=== PATIENT | female | born 1960 | race Caucasian/White ===

== ENCOUNTER 2021-10-22 15:18 | Outpatient (REF) | payer MEDICAID, SELFPAY ==
[2021-10-22 16:53] LABS: Abs Immature Grans 0.02 10^3/uL (0.0-0.06); Absolute Basophil Count 0.06 10^3/uL (0.0-0.2); Absolute Lymphocyte Count 1.97 10^3/uL (1.2-3.4); Absolute Monocyte Count 0.44 10^3/uL (0.1-0.8); Absolute Neutrophil Count 5.37 10^3/uL (1.2-6.7); Basophils % 0.8; Eosinophils % 1.3; HCT 42.4 % (36.0-46.0); HGB 13.9 g/dL (11.2-15.7); Immature Grans % 0.3; Lymphocytes % 24.7; MCH 29.1 pg (27.0-33.0); MCHC 32.8 % (32.0-36.0); MCV 88.9 fL (80-95); MPV 11.7 fL (8.0-11.0); Monocytes % 5.5; Neutrophils % 67.4; Nucleated RBC 0 %; Platelet Count 254 10^3/uL (130-400); RBC 4.77 10^6/uL (3.93-5.22); RDW 12.4 % (11.7-14.6); WBC 7.96 10^3/uL (4.4-10.8)
[2021-10-22 17:25] LABS: D-Dimer 659 ng/mlFEU (<500)
[2021-10-22 19:18] LABS: ALT 15 U/L (14-59); AST 13 U/L (15-37); Alkaline Phosphatase 76 U/L (46-116); Anion Gap 8.3 mmol/L (3-11); BUN 12 mg/dL (7-18); Bilirubin, Total 0.4 mg/dL (0.2-1.0); CO2 25.7 mmol/L (21.0-32.0); CREATININE 0.8 mg/dL (0.55-1.02); Calcium 8.7 mg/dL (8.5-10.1); Chloride 106 mmol/L (98-107); Glucose 205 mg/dL (74-106); Lipase 136 U/L (73-393); Potassium 3.7 mmol/L (3.5-5.1); Sodium 140 mmol/L (136-145)
== END 2021-10-22 15:19 | disposition home or self-care (01) ==
LOC: LBN 15:18
PROVIDERS: PCP Family Medicine; Visit Provider Physician Assistant Medical
DX: R10.9 Unspecified abdominal pain (principal); R06.00 Dyspnea, unspecified
CPT/HCPCS: 80053; 83690; 85025; 85379

== ENCOUNTER 2022-01-30 17:07 | Outpatient (REF) | payer MEDICAID, SELFPAY ==
[2022-01-30 21:26] LABS: Bilirubin Negative (Negative); Blood Trace-intact (Negative); Clarity Clear (Clear); Glucose Negative (Negative); Ketones Negative (Negative); Leukocyte Esterase Negative (Negative); Nitrite Negative (Negative); Specific Gravity >= 1.030 (1.005-1.025); Urobilinogen 0.2 EU/dL (Up TO 0.2)
== END 2022-01-30 17:08 | disposition home or self-care (01) ==
LOC: LBN 17:07
PROVIDERS: PCP Family Medicine; Visit Provider Family Medicine
DX: R82.998 Other abnormal findings in urine (principal)
CPT/HCPCS: 81003

== ENCOUNTER → 2022-05-22 00:38 | Outpatient (CLI) | payer MEDICAID, SELFPAY ==
--- NOTE | 2022-05-22 07:30 | DI.CT_ITS ---
Exam(s) CT CHEST WO EXAM: CT CHEST WO CLINICAL HISTORY: f/u nodules, R91.8 TECHNIQUE: Imaging Protocol: Axial computed tomography images with coronal and sagittal reformatted images were created and reviewed CONTRAST MATERIAL: Noncontrast COMPARISON: CR XR CHEST SINGLE VIEW from 06/09/[address] ANGIO CHEST from 10/23/2021 FINDINGS: Tracheobronchial tree: No bronchiectasis or mucous plugging. Mediastinum and Ro: No dominant adenopathy or fluid collection. Pulmonary parenchyma: Biapical scarring, right greater than left. Centrilobular and paraseptal emphy sematous changes in the upper lobes. Interval clearing previously noted right lower lobe infiltrate. No consolidation. Stable 4 millimeter nodule superior segment right lower lobe. Previously noted 6 millimeter nodule no longer present. Pleura: No effusion or pneumothorax. Heart: The heart is not dilated. coronary artery calcifications are seen. Aorta: Thoracic aorta non-dilated. Atherosclerotic changes. Upper abdomen: Multiple stones upper pole left kidney. Lymph nodes: Within normal limits. Bones: Mild degenerative changes. Stable mild T11 compression fracture. Soft tissues: Unremarkable. IMPRESSION: Interval clearing infiltrate superior segment right lower lobe. Stable appearance of 4 millimeter ri ght lower lobe nodule. Underlying emphysematous changes. If the patient is at high risk for lung cancer, recommend low-dose screening CT in 1 year. RADIATION DOSE DELIVERED: 377.96mGy.cm Total DLP DATA REPOSITORY: All CT scans at this facility are submitted to the National Radiology Data Registry (NRDR) Dose Index Registry (DIR) with the [employer] (ACR). RADIATION OPTIMIZATION: All CT scans at this facility use at least one of these dose optimization te chniques: automated exposure control; mA and/or kV adjustment per patient size (includes targeted exa ms where dose is matched to clinical indication); or iterative reconstruction.
== END ==
PROVIDERS: PCP Family Medicine; Visit Provider Student in an Organized Health Care Education/Training Program
DX: R91.8 Other nonspecific abnormal finding of lung field (principal); J43.2 Centrilobular emphysema
CPT/HCPCS: 71250

== ENCOUNTER 2022-12-25 13:11 | Outpatient (REF) | payer MEDICAID, SELFPAY ==
[2022-12-25 11:10] LABS: Abs Immature Grans 0.02 10^3/uL (0.0-0.06); Absolute Basophil Count 0.05 10^3/uL (0.0-0.2); Absolute Eosinophil Count 0.11 10^3/uL (0.0-0.7); Absolute Lymphocyte Count 1.95 10^3/uL (1.2-3.4); Absolute Monocyte Count 0.52 10^3/uL (0.1-0.8); Absolute Neutrophil Count 5.17 10^3/uL (1.2-6.7); Basophils % 0.6; Eosinophils % 1.4; HGB 14.8 g/dL (11.2-15.7); Immature Grans % 0.3; Lymphocytes % 24.9; MCH 30.3 pg (27.0-33.0); MCHC 34.4 % (32.0-36.0); MCV 88 fL (80-95); MPV 11.5 fL (8.0-11.0); Monocytes % 6.6; Neutrophils % 66.2; Platelet Count 198 10^3/uL (130-400); RBC 4.88 10^6/uL (3.93-5.22); RDW 12.2 % (11.7-14.6); RDW-SD 39.8 fL; WBC 7.82 10^3/uL (4.4-10.8)
[2022-12-25 12:26] LABS: ALT 15 U/L (14-59); AST 15 U/L (15-37); Albumin 4.4 g/dL (3.4-5.0); Alkaline Phosphatase 72 U/L (46-116); Anion Gap 6.8 mmol/L (3-11); BUN 13 mg/dL (7-18); Bilirubin, Total 0.6 mg/dL (0.2-1.0); CO2 29.2 mmol/L (21.0-32.0); CREATININE 0.9 mg/dL (0.55-1.02); Calcium 9.3 mg/dL (8.5-10.1); Chloride 103 mmol/L (98-107); Estimated GFR 71.83 (mL/min/1.73m2); Glucose 91 mg/dL (74-106); Potassium 3.9 mmol/L (3.5-5.1); Sodium 139 mmol/L (136-145); Total Protein 7.5 g/dL (6.4-8.2)
== END 2022-12-25 13:12 | disposition home or self-care (01) ==
LOC: LBN 13:11
PROVIDERS: PCP Family Medicine; Visit Provider Family Medicine
DX: R10.9 Unspecified abdominal pain (principal)
CPT/HCPCS: 80053; 85025

== ENCOUNTER 2022-12-25 13:16 | Outpatient (CLI) | payer MEDICAID, SELFPAY ==
--- NOTE | 2022-12-25 | DI.CT_ITS ---
Exam(s) CT ABDOMEN PELVIS W EXAM: CT ABDOMEN PELVIS W CLINICAL HISTORY: ABD PAIN R10.9. TECHNIQUE: Imaging Protocol: Axial computed tomography images with coronal and sagittal reformatted images were created and reviewed CONTRAST MATERIAL: Intravenous: Omnipaque 350 Contrast volume:100 ml Oral: yes / COMPARISON: CT CT ANGIO CHEST from 10/23/2021 FINDINGS: ABDOMEN: Lung Bases: Sub stable tiny nodule right lung base. Liver: Normal density. No measurable mass. Gallbladder and biliary tract: No radiodense calculus or dilation. Pancreas: Normal density, no abnormal calcifications or inflammatory process. Spleen: Normal. Kidneys: Normal size, contour and axis. The multiple bilateral renal calculi, the largest at the lowe r pole of the left kidney. No suspicious masses seen. Adrenal glands: No masses seen. Abdominal Aorta: Abdominal portion non-dilated. Atherosclerotic changes with moderate narrowing Soft tissues: Unremarkable. PELVIS: Bladder: No gross wall thickening. No calculi.No focal mass. Bowel: Large quantity of stool from the cecum through lower descending colon. No obstruction. No b owel wall thickening. Appendix normal. Peritoneal cavity: No ascites, collection or mesenteric inflammatory response. Bones: Hardware right proximal femur Reproductive organs: Status post hysterectomy peer Lymph nodes: Unremarkable. Impression: No acute abnormality. Bilateral nonobstructing renal calculi. Large quantity of stool. RADIATION DOSE DELIVERED: 746.21mGy.cm Total DLP DATA REPOSITORY: All CT scans at this facility are submitted to the National Radiology Data Registry (NRDR) Dose Index Registry (DIR) with the [employer] (ACR). RADIATION OPTIMIZATION: All CT scans at this facility use at least one of these dose optimization te chniques: automated exposure control; mA and/or kV adjustment per patient size (includes targeted exa ms where dose is matched to clinical indication); or iterative reconstruction.
[2022-12-25] MEDS: Barium Sulfate 2% W/V-Berry Smoothie 450 ML BTL PO (12:30)
[2022-12-25] MEDS: Omnipaque 350 MG/ML 100 ML BTL IJ (14:26)
[2022-12-25] MEDS: Normal Saline - Diluent 50 ML VIAL IJ (14:26)
[2022-12-25] MEDS: Normal Saline Flush 10 ML SYR IVP (14:27)
== END 2022-12-25 13:36 ==
LOC: DI 13:17
PROVIDERS: PCP Family Medicine; Visit Provider Family Medicine
DX: R10.9 Unspecified abdominal pain (principal); N20.0 Calculus of kidney
CPT/HCPCS: 74177; J3490

== ENCOUNTER → 2023-05-24 02:19 | Outpatient (CLI) | payer MEDICAID, SELFPAY ==
--- NOTE | 2023-05-24 09:15 | DI.CTLCSR_ITS ---
Exam(s) CT CHEST LUNG CANCER SCREEN EXAM: CT CHEST LUNG CANCER SCREEN CLINICAL HISTORY: Screening for lung cancer, CURRENT SMOKER, F17.210 TECHNIQUE: Imaging Protocol: Axial computed tomography images with coronal and sagittal reformatted images were created and reviewed. Low dose screening protocol. COMPARISON: CT CT CHEST WO from 05/22/2022 FINDINGS: Tracheobronchial tree: No bronchiectasis or mucus plugging.. Mediastinum and Ro: No dominant adenopathy or fluid collection. Pulmonary parenchyma: No consolidation or dominant measurable mass. Centrilobular and paraseptal emph ysematous changes. Lung Nodules: Stable 4 millimeter nodules right lower lobe. No new nodules. Pleura: No effusion. No pneumothorax. Heart: The heart is not dilated. Moderate coronary artery calcifications are seen. Aorta: Thoracic aorta non-dilated. Atherosclerotic changes. Upper abdomen: Nonobstructing stones upper pole left kidney. Bones: Stable mild T11 compression fracture. Mild degenerative changes. Soft Tissues: Unremarkable. IMPRESSION: Stable small pulmonary nodules right lower lobe. Lung RADS Cat 2 - Benign Appearance / Behavior: Nodules with a very low likelihood of becoming a clin ically active cancer due to size or lack of growth Lung-RADS 1.0 CATEGORIES: Category 0 - Prior chest CT exam(s) being located for comparison. Category 1 - Annual screening in 12 months. No nodules or definitely benign nodules. Category 2 - Annual screening in 12 months. Benign appearance. Nodules with low likelihood of becomin g active cancer. Category 3 - 6-month follow-up. Probably benign. Short-term follow-up suggested. Nodules with low lik elihood of becoming active cancer. Category 4A - 3-month follow-up and CT/PET if >8 mm in size. Suspicious finding. Findings which requi re additional testing. Category 4B - Findings which require additional testing and tissue sampling. Category 4X - Category 3 or 4 nodules with additional features or imaging findings that increases the suspicion of malignancy. Modifier S- Potentially clinically significant findings (non lung cancer) RADIATION DOSE DELIVERED: Total DLP DATA REPOSITORY: All CT scans at this facility are submitted to the National Radiology Data Registry (NRDR) Dose Index Registry (DIR) with the [employer] (ACR). RADIATION OPTIMIZATION: All CT scans at this facility use at least one of these dose optimization te chniques: automated exposure control; mA and/or kV adjustment per patient size (includes targeted exa ms where dose is matched to clinical indication); or iterative reconstruction.
== END ==
PROVIDERS: PCP Family Medicine; Visit Provider Physician Assistant Surgical
DX: F17.210 Nicotine dependence, cigarettes, uncomplicated (principal); R91.8 Other nonspecific abnormal finding of lung field; Z12.2 Encounter for screening for malignant neoplasm of respiratory organs
CPT/HCPCS: 71271

== ENCOUNTER 2023-08-16 16:23 | Outpatient (REF) | payer MEDICAID, SELFPAY ==
[2023-08-16 14:26] LABS: Abs Immature Grans 0.01 10^3/uL (0.0-0.06); Absolute Basophil Count 0.06 10^3/uL (0.0-0.2); Absolute Eosinophil Count 0.26 10^3/uL (0.0-0.7); Absolute Lymphocyte Count 1.89 10^3/uL (1.2-3.4); Absolute Monocyte Count 0.48 10^3/uL (0.1-0.8); Absolute Neutrophil Count 4.49 10^3/uL (1.2-6.7); Basophils % 0.8; Eosinophils % 3.6; HCT 42.9 % (36.0-46.0); HGB 14.5 g/dL (11.2-15.7); Immature Grans % 0.1; Lymphocytes % 26.3; MCH 30.1 pg (27.0-33.0); MCHC 33.8 % (32.0-36.0); MCV 89 fL (80-95); MPV 11.2 fL (8.0-11.0); Monocytes % 6.7; Neutrophils % 62.5; Platelet Count 213 10^3/uL (130-400); RBC 4.81 10^6/uL (3.93-5.22); RDW 12.1 % (11.7-14.6); WBC 7.19 10^3/uL (4.4-10.8)
[2023-08-16 14:48] LABS: ALT 18 U/L (14-59); AST 16 U/L (15-37); Albumin 4.2 g/dL (3.4-5.0); Alkaline Phosphatase 76 U/L (46-116); Anion Gap 5.4 mmol/L (3-11); BUN 14 mg/dL (7-18); Bilirubin, Total 0.4 mg/dL (0.2-1.0); CO2 29.6 mmol/L (21.0-32.0); CREATININE 0.8 mg/dL (0.55-1.02); Calcium 9.4 mg/dL (8.5-10.1); Chloride 102 mmol/L (98-107); Estimated GFR 82.74 (mL/min/1.73m2); Glucose 96 mg/dL (74-106); Potassium 4.2 mmol/L (3.5-5.1); Sodium 137 mmol/L (136-145); Total Protein 7.5 g/dL (6.4-8.2)
[2023-08-16 15:27] LABS: Bilirubin Negative (Negative); Blood Small (Negative); Clarity Clear (Clear); Glucose Negative (Negative); Ketones Negative (Negative); Leukocyte Esterase Negative (Negative); Nitrite Negative (Negative); Urobilinogen 0.2 mg/dL (Up to 0.2)
[2023-08-16 15:35] LABS: Bacteria Rare HPF (Negative); C & S Indicated? C&S Done As Ordered; Crystals Negative HPF (Negative); Epithelial Cells Few HPF (Negative); Mucus Negative (Negative); WBC 0-2 HPF (0-5)
--- OUTSIDE RECORDS SUMMARY | 2023-08-16 16:25 | XMS_ITS | Continuity of Care Document ---
Author Name Unknown Organization [facility] Address [address] [place] [address] Care Team Providers Care Systems Administrator Name Role Phone Ken Murdock DO Primary Care Physician [phone] Encounter [facility] FIN NBR [id number] Date(s): 03/22/23 - 03/22/23 [facility] [address], [place] [address] Discharge Disposition: Home Allergies, Adverse Reactions, Alerts Substance Reaction Severity Status ciprofloxacin ? Nausea Unknown Active azithromycin 1 Rash Unknown Active penicillin V potassium Unknown Unknown Activ e varenicline Unknown Unknown Active Vicodin Itchy Unknown Severe Active Toradol itchy, rash on hands and feet Unknown Active Tylox very itchy Unknown Active Chantix Unknown Active traMADol Unknown Unknown Active diazePAM very shakey Unknown Active 1May have had sun rash; tolerated zpak in past without problems previously Assessment and Plan Future Appointments Future Scheduled Tests Laboratory* Free K+L Lt Chains,Qn,S LC 12/22/22 Radiology* BD Bone Density DEXA Axial Skeleton 04/22/23 * MG Mammo Screening Bilateral 05/15/22 * XR Bone Survey (Metastatic) 12/12/22 * XR Bone Survey (Metastatic) 12/22/22 Immunizations Given and Recorded Vaccine Date Status Refusal Reason SARS-CoV-2 (COVID-19) mRNA-1273 vaccine 09/09/20 R ecorded SARS-CoV-2 (COVID-19) mRNA-1273 vaccine 08/12/20 R ecorded Medications ALPRAZolam 0.5 mg oral tablet See Instructions, May take 1 tab up to 2 times daily as needed for anxiety, # 30 tab, 2 Refill(s), Pharmacy: [id number] Start Date: 09/21/22 Status: Ordered methocarbamol 750 mg oral tablet 750 mg = 1 tab, Oral, every 4 hr, PRN as needed for pain, PRN, # 60 tab, 0 Refill(s) Start Date: 11/16/22 Status: Ordered Vitamin B12 1,000 mcg =, Oral, Daily, 0 Refill(s) Start Date: 03/22/23 Status: Ordered Vitamin D3 2000 intl units oral tablet 50 mcg = 1 tab, Oral, Daily, # 90 tab, 3 Refill(s), Pharmacy: [facility] Start Date: 09/02/22 Stop Date: 08/28/23 Status: Ordered Wellbutrin XL 150 mg/24 hours oral tablet, extended release 150 mg = 1 tab, Oral, every 24 hr, # 30 tab, 11 Refill(s), Pharmacy: [id number], 175.26, cm, 02/22/23 17:26:00 EDT, Height/Length Dosing, 63.5, kg, 02/22/23 17:26:00 EDT, Weight Dosing Start Date: 03/22/23 Status: Ordered Problem List Condition Confirmation Course Effective Dates Status Health Status Informant Bloating Confirmed Active Gait disturbance Confirmed Active Abnormal leg movement Confirmed Active Acute right-sided low back pain with sciatica Confirmed Active Acute swimmer's ear of both sides Confirmed Active Adenomatous polyp of colon Confirmed Active Anxiety disorder Confirmed Active Biceps tendinitis Confirmed Active Breast mass, right Confirmed Active Breast lump Confirmed Active Centrilobular emphysema Confirmed Active Centriacinar emphysema Confirmed Active Chest pain Confirmed Active 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 Confirmed Active Closed fracture of neck of femur Confirmed Active Compression fracture of body of thoracic vertebra Confirmed Active Conductive hearing loss, external ear Confirmed Active Degenerative joint disease of shoulder region Confirmed Active Delay when starting to pass urine Confirmed Active Disorder of bone density and structure, unspecified Confirmed Active Diverticulosis of colon Confirmed Active Erosive gastropathy Confirmed Active Fatigue Confirmed Active Fibrocystic changes of both breasts Confirmed Active Full thickness rotator cuff tear Confirmed Active Gastroesophageal reflux disease Confirmed Active Goiter Confirmed Active Graves disease 1 Confirmed Active H/O: ear disorder Confirmed Active Pyrosis Confirmed Active History of adenomatous polyp of colon Confirmed Active History of kidney stone Confirmed Active Hyperlipidemia Confirmed Active IBS (irritable bowel syndrome) Confirmed Active Kidney stone Confirmed Active Nephrolithiasis Confirmed Active Left rotator cuff syndrome Confirmed Active Lower abdominal pain Confirmed Active Mass of female genital structure Confirmed Active Cystocele, midline Confirmed Active Midline cystocele Confirmed Active Migraine without status migrainosus, not intractable Confirmed Active Monoclonal gammopathy Confirmed Active Pulmonary nodules Confirmed Active Cervical pain Confirmed Active Neck pain Confirmed Active Neuralgia Confirmed Active Numbness of toes Confirmed Active Osteochondropathy Confirmed Active Osteoporosis Confirmed Active Otalgia of left ear Confirmed Active Otomycosis Confirmed Active Pathological fracture of vertebra Confirmed Active Plantar wart of left foot Confirmed Active Primary osteoporosis Confirmed Active Emphysema lung Confirmed Active Referred otalgia of left ear Confirmed Active Restless legs syndrome Confirmed Active Other seborrheic keratosis Confirmed Active Seborrheic keratosis Confirmed Active Submandibular sialoadenitis Confirmed Active Sialoadenitis of the submandibular gland Confirmed Active Sore throat Confirmed Active Superficial mycosis, unspecified Confirmed Active Thyroid disease Confirmed Active Tobacco user Confirmed Active von Willebrand's disease Confirmed Active 1Graves disease-radioactive iodine ablation Procedures Procedure Date Related Diagnosis Body Site Status Esophagogastroduodenoscopy a nd Colonoscopy with Biopsy 1 02/25/23 Comple gene Mammogram 2 04/12/19 Completed Injection left shoulder, cortisone 01/04/17 Completed Right Ureteroscopy and laser lithotripsy 11/07/15 Completed Colonoscopic polypectomy 3 Completed Fat graft stomach to neck 4 Completed Hysterectomy.... subtotal ab dominal , due to risk of cancer 5 Complete d Procedure 6 Completed Tonsillectomy and adenoidectomy 7 Completed 1auto-populated from documented surgical case 2CAT 2 [id number]... 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 1/2 ppd depending on stress never over 1 pack per day. Sex Female Patient Care team information Care Team Personnel Name: Ken Murdock DO Position: Physician Member Role: Primary Care Physician Address: Address: [address] [place] [phone] [place] Care Team Related Persons Name: ZANE BANKS Address: Home
--- OUTSIDE RECORDS SUMMARY | 2023-08-16 16:25 | XMS_ITS | Continuity of Care Document ---
Author Name Unknown Organization [facility] Address [address] [place] [address] Care Team Providers Care Adventure Education Teacher Name Role Phone Ken Murdock DO Primary Care Physician Encounter [facility] FIN NBR [id number] Date(s): 05/31/23 - 05/31/23 [facility] [address] [place], [place] [address] Encounter Diagnosis Foreign body sensation, throat(Final) - Discharge Disposition: Home or Self Care Attending Physician: Ken Murdock DO Admitting Physician: Ken Murdock DO Referring Physician: Ken Murdock DO Allergies, Adverse Reactions, Alerts Substance Reaction Severity [...] Free K+L Lt Chains,Qn,S LC 12/22/22 Radiology* XR Bone Survey (Metastatic) 12/12/22 * XR Bone Survey (Metastatic) 12/22/22 Immunizations Given and Recorded Vaccine Date Status Refusal Reason SARS-CoV-2 (COVID-19) mRNA-1273 vaccine 09/09/20 R ecorded SARS-CoV-2 (COVID-19) mRNA-1273 vaccine 08/12/20 R ecorded Medications acetaminophen 500 mg oral tablet 2 tab, Oral, every 8 hr, PRN NEEDED, Please call [phone] to make a 6 month follow up for 08/2023, # 90 tab, 0 Refill(s), Pharmacy: [id number], 175.26, cm, 02/22/23 17:26:00 EDT, Height/Length Dosing, 63.5, kg, 02/22/23 17:26:00 EDT, Weight Dosing Start Date: 05/14/23 Status: Ordered ALPRAZolam 0.5 mg oral tablet See Instructions, May take 1 tab up to 2 times daily as needed for anxiety, # 30 tab, 2 Refill(s), [facility] Start Date: 09/21/22 Status: Ordered methocarbamol 750 mg oral tablet 750 mg = 1 tab, Oral, every 4 hr, PRN as needed for pain, PRN, # 60 tab, 0 Refill(s) Start Date: 11/16/22 Status: Ordered pantoprazole 40 mg oral delayed release tablet 40 mg = 1 tab, Oral, Daily, 30 minutes before, # 30 tab, 11 Refill(s), Pharmacy: [facility], 175.26, cm, 02/22/23 17:26:00 EDT, Height/Length Dosing, 63.5, kg, 02/22/23 17:26:00 EDT, Weight Dosing Start Date: 04/12/23 Stop Date: 04/06/24 Status: Ordered Pepcid 20 mg oral tablet 20 mg = 1 tab, Oral, BID, PRN heartburn, # 60 tab, 11 Refill(s), [facility]: [facility], 175.26, cm, 02/22/23 17:26:00 EDT, Height/Length Dosing, 63.5, kg, 02/22/23 17:26:00 EDT, Weight Dosing Start Date: 04/12/23 Stop Date: 04/06/24 Status: Ordered Vitamin B12 1,000 mcg =, Oral, Daily, 0 Refill(s) Start Date: 03/22/23 Status: Ordered Vitamin D3 2000 intl units oral tablet 50 mcg = 1 tab, Oral, Daily, # 90 tab, 3 Refill(s), [facility]acy: [facility] Start Date: 09/02/22 Stop Date: 08/28/23 Status: Ordered Wellbutrin XL 150 mg/24 hours oral tablet, extended release 150 mg = 1 tab, Oral, every 24 hr, # 30 tab, 11 Refill(s), Pharmacy: [facility], 175.26, cm, 02/22/23 17:26:00 EDT, Height/Length [...] 1auto-populated from documented surgical case 2CAT 2 [id number]... Left parotidectomy / to benign tumor, right breast biopsy 7date unknown Results Laboratory List Name Date TSH w/ Rflx to Free T4 05/31/23 Most recent to oldest [Reference Range]: 1 TSH [0.45-5.33 mcIntlUnit/mL] 4.28 mcInt lUnit/mL (05/31/23 10:55 AM) Social History Social History Type Response Tobacco Current everyday tob acco user Tobacco Use:. 1/2 ppd depending on stress never over 1 pack per day. Sex Female Patient Care team information Care Team Personnel Name: Ken Murdock DO Position: Physician Member Role: Primary Care Physician Address: Address: [address] [place] [phone] [place] Care Team Related Persons Name: ZANE BANKS
--- OUTSIDE RECORDS SUMMARY | 2023-08-16 16:25 | XMS_ITS | Continuity of Care Document ---
Author Name Unknown Organization [facility] Address [address] [place] [address] Care Team Providers Care Staff Antisubmarine Officer Name Role Phone Ken Murdock DO Primary Care Physician Encounter [facility] NBR [id number] Date(s): 03/22/23 - 03/22/23 [facility] [address] [place], [place] [address] Discharge Disposition: Home Allergies, Adverse Reactions, Alerts [...] anxiety, # 30 tab, 2 Refill(s), Pharmacy: [facility] Start Date: 09/21/22 Status: Ordered methocarbamol [...] Daily, # 90 tab, 3 Refill(s), Pharmacy: [facility] Start Date: 09/02/22 Stop Date: 08/28/23 Status: Ordered Wellbutrin XL 150 mg/24 hours oral tablet, extended release 150 mg = 1 tab, Oral, every 24 hr, # 30 tab, 11 Refill(s), Pharmacy: [facility], 175.26, cm, 02/22/23 17:26:00 EDT, Height/Length [...] 1auto-populated from documented surgical case 2CAT 2 [id number]... 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 1/2 ppd depending on stress never over 1 pack per day. Sex Female Patient Care team information Care Team Personnel Name: Ken Murdock DO Position: Physician Member Role: Primary Care Physician Address: Address: [address] [place] [phone] [place] Care Team Related Persons Name: ZANE BANKS Address: Home
--- OUTSIDE RECORDS SUMMARY | 2023-08-16 16:25 | XMS_ITS | Continuity of Care Document ---
Author Name Unknown Organization [facility] Address [address] [place] [address] Care Team Providers Care Crown Pouncer Name Role Phone Ken Murdock DO Primary Care Physician [phone] Encounter [facility] NBR [id number] Date(s): 12/14/22 - 12/14/22 [facility] [address] [place], [place] [address] Discharge Disposition: Home Allergies, Adverse Reactions, Alerts Substance Reaction Severity Status ciprofloxacin ? Nausea Unknown Active azithromycin Unknown Active penicillin V potassium Unknown Unknown Activ e varenicline Unknown Unknown Active Vicodin Unknown Unknown Active Toradol itchy, rash on hands and feet Unknown Active Tylox very itchy Unknown Active Chantix Unknown Active traMADol Unknown Unknown Active diazePAM very shakey Unknown Active Assessment and Plan Future Appointments Future Scheduled Tests Radiology* MG Mammo Screening Bilateral 05/15/22 * XR Bone Survey (Metastatic) 12/12/22 Immunizations Given and Recorded Vaccine Date Status Refusal Reason SARS-CoV-2 (COVID-19) mRNA-1273 vaccine 09/09/20 R ecorded SARS-CoV-2 (COVID-19) mRNA-1273 vaccine 08/12/20 R ecorded Medications Advil 200 mg oral tablet 400 mg = 2 tab, Oral, Daily, with food or milk PRN, # 60 tab, 0 Refill(s) Start Date: 11/16/22 Stop Date: 01/07/23 Status: Ordered ALPRAZolam 0.5 mg oral tablet See Instructions, May take 1 tab up to 2 times daily as needed for anxiety, # 30 tab, 2 Refill(s), Pharmacy: [facility] Start Date: 09/21/22 Status: Ordered methocarbamol 750 mg oral tablet 750 mg = 1 tab, Oral, every 4 hr, PRN as needed for pain, PRN, # 60 tab, 0 Refill(s) Start Date: 11/16/22 Status: Ordered Tylenol 325 mg oral tablet 650 mg = 2 tab, Oral, Daily, # 60 tab, 0 Refill(s) Start Date: 11/16/22 Stop Date: 01/07/23 Status: Ordered Vitamin D3 2000 intl units oral tablet 50 mcg = 1 tab, Oral, Daily, # 90 tab, 3 Refill(s), Pharmacy: [facility] Start Date: 09/02/22 Stop Date: 08/28/23 Status: Ordered ZyrTEC 10 mg oral tablet 10 mg = 1 tab, Oral, Daily, PRN as needed for allergy symptoms Start Date: 11/24/22 Status: Ordered Problem List Condition Confirmation Course Effective Dates Status H ealth Status Informant Gait disturbance Confirmed Active Abnormal leg movement Confirmed Active Acute right-sided low back pain with sciatica Confirmed Active Acute swimmer's ear of both sides Confirmed Active Anxiety disorder Confirmed Active Breast mass, right Confirmed Active Centrilobular emphysema Confirmed Active 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 Compression fracture of body of thoracic vertebra Confirmed Active Conductive hearing loss, external ear Confirmed Active Disorder of bone density and structure, unspecified Confirmed Active Tobacco use Confirmed Active Gastroesophageal reflux disease Confirmed Active Hyperlipidemia Confirmed Active Impacted cerumen of both ears Confirmed Active Kidney stone Confirmed Active Nephrolithiasis Confirmed Active Mass of female genital structure Confirmed Active Cystocele, midline Confirmed Active Migraine without status migrainosus, not intractable Confirmed Active Pulmonary nodules Confirmed Active Cervical pain Confirmed Active Cervicalgia Confirmed Active Numbness of toes Confirmed Active Osteoporosis Confirmed Active Emphysema lung Confirmed Active Referred otalgia of left ear Confirmed Active Other seborrheic keratosis Confirmed Active Submandibular sialoadenitis Confirmed Active Smoker Confirmed Active Superficial mycosis, unspecified Confirmed Active Procedures Procedure Date Related Diagnosis Body Site Status Mammogram 1 04/12/19 Completed Injection left shoulder, cortisone 01/04/17 Completed Right Ureteroscopy and laser lithotripsy 11/07/15 Completed Colonoscopic polypectomy 2 Completed Fat graft stomach to neck 3 Completed Hysterectomy.... subtotal ab dominal , due to risk of cancer 4 Complete d Procedure 5 Completed Tonsillectomy and adenoidectomy 6 Completed 1CAT 2 [id number]... Left parotidectomy / to benign tumor, right breast biopsy 6date unknown Social History Social History Type Response Tobacco Current everyday tob acco user Tobacco Use:. 1/2 ppd depending on stress never over 1 pack per day. Sex Female Patient Care team information Care Team Personnel Name: Ken Murdock DO Position: Physician Member Role: Primary Care Physician Address: Address: [address] [place] [phone] [place] Care Team Related Persons Name: ZANE BANKS Address: [place]
--- OUTSIDE RECORDS SUMMARY | 2023-08-16 16:25 | XMS_ITS | Continuity of Care Document ---
Author Name Unknown Organization [facility] Ambulatory Clinics Address [address] [place] [address] Care Team Providers Care Keno Writer Name Role Phone Ken Murdock DO Primary Care Physician Encounter [facility] NBR [id number] Date(s): 03/22/23 - 03/22/23 [facility] Ambulatory Clinics [address] [place] [address]- Encounter Diagnosis Anxiety disorder(Discharge Diagnosis) - 03/22/23 Smoker(Discharge Diagnosis) - 03/22/23 Osteoporosis(Discharge Diagnosis) - 03/22/23 Compression fracture of body of thoracic vertebra(Discharge Diagnosis) - 03/22/23 Emphysema lung(Discharge Diagnosis) - 03/22/23 Anxiety disorder, unspecified(Final) - Nicotine dependence, cigarettes, uncomplicated(Final) - Age-related osteoporosis without current pathological fracture(Final) - Emphysema, unspecified(Final) - Other [place] [facility] (current) drug therapy(Final) - Discharge Disposition: Home or Self Care Attending Physician: Ken Murdock DO Allergies, Adverse Reactions, [...] 12/12/22 * XR Bone Survey (Metastatic) 12/22/22 Functional Status 03/22/23 Family Member Travel History No recent richard polanco Recent Travel History No recent travel Other exposure to Infectious Disease Non e Immunizations Given and Recorded Vaccine Date Status Refusal Reason SARS-CoV-2 (COVID-19) mRNA-1273 vaccine 09/09/20 R ecorded SARS-CoV-2 (COVID-19) mRNA-1273 vaccine 08/12/20 R ecorded Medications ALPRAZolam 0.5 mg oral tablet See Instructions, May take 1 tab up to 2 times daily as needed for anxiety, # 30 tab, 2 Refill(s), Pharmacy: [id number] Start Date: 09/21/22 Status: Ordered methocarbamol [...] Daily, # 90 tab, 3 Refill(s), Pharmacy: [id number] Start Date: 09/02/22 Stop Date: 08/28/23 Status: Ordered Wellbutrin XL 150 mg/24 hours oral tablet, extended release 150 mg = 1 tab, Oral, every 24 hr, # 30 tab, 11 Refill(s), Pharmacy: [id number], 175.26, cm, 02/22/23 17:26:00 EDT, Height/Length [...] 1auto-populated from documented surgical case 2CAT 2 [id number]... Left parotidectomy 2/2 to benign tumor, right breast biopsy 7date unknown Vital Signs Most recent to oldest [Reference Range]: 1 Temperature Tympanic [36.6-37.9 Deg C] 3 6.1 Deg C *LOW* (03/22/23 7:53 AM) Peripheral Pulse Rate [60-100 bpm] 99 bp m (03/22/23 7:53 AM) Respiratory Rate [12-24 br/min] 18 br/mi n (03/22/23 7:53 AM) Blood Pressure [90-140/60-90 mmHg] 102/6 4mmHg (03/22/23 7:53 AM) Weight 65.7 kg (03/22/23 7:53 AM) Weight Measured (lbs) 144.844 lb (03/22/23 7:53 AM) Social History Social History Type Response Tobacco Current everyday tob acco user Tobacco Use:. 1/2 ppd depending on stress never over 1 pack per day. Sex Female Hospital Discharge Instructions Follow Up Care 03/08/2023 08:08:18 With:Ken Murdock DO Address: [address] [place] [phone] When:6 Months Physician Outpatient Note * Ken Murdock, : PERFORM Event Display: Office Clinic Note Physician Authored Date: [id number] OMARI HAWKINS :1960 Age:62 years Sex:Female Visit Date:03/22/2023 Primary Care Physician: Ken Murdock DO Chief Complaint Multiple concerns. History of Present Illness ?? Patient is a 62-year-old female who comes in today for follow-up.?? She says overall things are going okay. Gastroenterology: Working with??GI on her??reflux??and bloating.?? PPIs seem to cause side effects,seems to be doing okay on the Pepcid. Psych:??Struggling with her anxiety, waxes and wanes, uses alprazolam??episodically.?? Also interested in smoking cessation. ??Continues to smoke.?? Had some success with Wellbutrin??in the past, would like to try it again.?? Did not tolerate the patches. Heme:??Working with hematology. Musculoskeletal:??Was taking infusions for her osteoporosis. ??No new fractures.?? Has been 5 yearssince her last bone density. Pulmonary:??Breathing is at baseline. Review of Systems See HPI otherwise negative. Physical Exam Vitals & Measurements T:??36.1?C ??(Tympanic)?? HR:??99??(Peripheral)?? RR:??18?? BP:??102/64?? SpO2:??97%?? WT:??65.7??kg?? General: Alert and oriented, well nourished,?No??acute distress Lungs: Clear to auscultation and percussion,?Non-labored?? respiration Heart:?Normal? rate,?Regular??rhythm,?No??murmur,?No??gallop,?No??edema Abdomen: Soft, non-tender, non-distended,?Normal? bowel sounds,?No??masses Musculoskeletal:?Normal? range of motion and strength,?No??tenderness,?No??swelling Psychiatric: Cooperative, appropriate mood and affect Assessment/Plan 1.??Anxiety disorder??F41.9 Symptoms wax and wane. ??We will continue??her??alprazolam as needed, will also ??add Wellbutrin??back into her regimen, seem to get some benefit in the past,??also may help with smoking cessation. Ordered: Wellbutrin XL 150 mg/24 hours oral tablet, extended release, 150 mg = 1 tab, Oral, every 24 hr, # 30 tab, 11 Refill(s), Pharmacy: [facility], 175.26, cm, 02/22/23 17:26:00 EDT, Height/Length Dosing, 63.5, kg, 02/22/23 17:26:00 EDT, Weight Dosing ?? 2.??Smoker??F17.200 We discussed various strategies??for smoking cessation. Ordered: Wellbutrin XL 150 mg/24 hours oral tablet, extended release, 150 mg = 1 tab, Oral, every 24 hr, # 30 tab, 11 Refill(s), Pharmacy: [id number], 175.26, cm, 02/22/23 17:26:00 EDT, Height/Length Dosing, 63.5, kg, 02/22/23 17:26:00 EDT, Weight Dosing ?? 3.??Osteoporosis??M81.0 We will recheck a??bone density. Ordered: BD Bone Density DEXA Axial Skeleton, 03/22/23, Routine, Reason: osteoporosis, Transport Mode: Ambulatory, Osteoporosis ?? 4.??Compression fracture of body of thoracic vertebra??S22.000A Recheck bone density. ?? 5.??Emphysema lung??J43.9 Breathing is at baseline.?? Continue to monitor. ?? 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 Closed fracture of neck of femur Compression fracture of body of thoracic vertebra Conductive hearing loss, external ear Cystocele, midline Degenerative joint disease of shoulder region Delay when starting to pass urine Disorder of bone density and structure, unspecified Diverticulosis of colon Emphysema lung Erosive gastropathy Fatigue Fibrocystic changes of both breasts Full thickness rotator cuff tear Gait disturbance Gastroesophageal reflux disease Goiter Graves disease H/O: ear disorder History of adenomatous polyp of colon History of kidney stone Hyperlipidemia IBS (irritable bowel syndrome) Kidney stone Left rotator cuff syndrome Lower abdominal pain Mass of female genital structure Midline cystocele Migraine without status migrainosus, not intractable Monoclonal gammopathy Neck pain Nephrolithiasis Neuralgia Numbness of toes Osteochondropathy Osteoporosis Otalgia of left ear Other seborrheic keratosis Otomycosis Pathological fracture of vertebra Plantar wart of left foot Primary osteoporosis Pulmonary nodules Pyrosis Referred otalgia of left ear Restless legs syndrome Seborrheic keratosis Sialoadenitis of the submandibular gland Sore throat Submandibular sialoadenitis Superficial mycosis, unspecified Thyroid disease Tobacco user von Willebrand's disease Historical Acute back pain with sciatica Acute maxillary sinusitis Acute otitis externa Adhesive capsulitis of shoulder Anxiety disorder Cellulitis Cervicalgia Change in bowel habits Colonic polyp Dyspepsia Epigastric pain External ear conductive hearing loss Extrapyramidal movements Gastroesophageal reflux disease Globus sensation History of rectal bleeding Hyperlipidemia Impacted cerumen Impacted cerumen of both ears Kidney stone Mass of female genital structure Migraine Multiple nodules of lung Nausea Otitis externa Smoker Smoker Tobacco use Procedure/Surgical History ???Esophagogastroduodenoscopy and Colonoscopy with Biopsy (02/25/2023)???Mammogram (04/13/2019)???Injection left shoulder, cortisone (01/05/2017)???Right Ureteroscopy and laser lithotripsy (11/08/2015 )???Colonoscopic polypectomy???Hysterectomy.... subtotal abdominal , due to risk of cancer???Procedure???Fat graft stomach to neck???Tonsillectomy and adenoidectomy Medications ALPRAZolam 0.5 mg oral tablet, See Instructions, 2 refills methocarbamol 750 mg oral tablet, 750 mg= 1 tab, Oral, every 4 hr, PRN Vitamin B12, 1000 mcg, Oral, Daily Vitamin D3 2000 intl units oral tablet, 50 mcg= 1 tab, Oral, Daily, 3 refills Wellbutrin XL 150 mg/24 hours oral tablet, extended release, 150 mg= 1 tab, Oral, every 24 hr, 11 refills Allergies Vicodin??(Itchy, Unknown) Chantix Toradol??(itchy, rash on hands and feet) Tylox??(very itchy) azithromycin??(Rash) ciprofloxacin??(? Nausea) diazePAM??(very shakey) penicillin V potassium??(Unknown) traMADol??(Unknown) varenicline??(Unknown) Social History Alcohol Never Electronic Cigarette/Vaping Electronic Cigarette Use: Never. Employment/School Highest education level: High school. Home/Environment Lives with Alone. Living situation: Home/Independent. Nutrition/Health Caffeine intake amount: 2-3 cups a day various size cups and amount per day. 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 many years ago ,Last abnormal pap smear... in late teens, and early 20's. Total pregnacies 2 , Vaginal , 2 living. Oldest son , sister was septic, has severe astthma/ pneumonia, Sister was diagnoosed with type 2 diabetes. Has 1 sister and 2 sons. Substance Use Never Tobacco Current everyday tobacco user Tobacco Use:. 1/2 ppd depending on stress never over 1 pack per day. Family History Alzheimer's disease: Grandfather (P). Cancer: Grandfather (M), Grandfather (P) and Grandmother (M). Heart attack: Grandmother (M). Family Member(s): ?? GPARENT, at age: 60 Years. Cause of : cancer Family Member(s): ?? GPARENT, at age: Unknown. Cause of : cancer Family Member(s): ?? GPARENT, at age: Unknown. Cause of : heart attack, diabetes Family Member(s): ?? FATHER, at age: 63 Years. Cause of : Rheumatic Fever ??? Immunizations Vaccine Date Status SARS-CoV-2 (COVID-19) mRNA-1273 vaccine 09/09/2020 Recorded SARS-CoV-2 (COVID-19) mRNA-1273 vaccine 08/12/2020 Recorded Electronically Signed on 03/22/23 08:41 AM Ken Murdock DO Patient Care team information Care Team Personnel Name: Ken Murdock DO Position: Physician Member Role: Primary Care Physician Address: Address: [address] [place] [phone] [place] Care Team Related Persons Name: ZANE BANKS Address: Home
--- OUTSIDE RECORDS SUMMARY | 2023-08-16 16:26 | XMS_ITS | Continuity of Care Document ---
Author Name Unknown Organization [facility] Address [address] [place] [address] Care Team Providers Care Cad Administrator Name Role Phone Ken Murdock DO Primary Care Physician Encounter [facility] NBR [id number] Date(s): 12/08/22 - 12/08/22 [facility] [address] [place], [place] [address] Encounter Diagnosis Epigastric pain(Final) - Abdominal distension (gaseous)(Final) - Discharge Disposition: Home or Self Care Attending Physician: Ken Murdock DO Admitting Physician: Ken Murdock DO Referring Physician: Ken Mudrock DO Allergies, Adverse Reactions, Alerts Substance Reaction [...] Tests Radiology* MG Mammo Screening Bilateral 05/15/22 Immunizations Given and Recorded Vaccine Date Status [...] anxiety, # 30 tab, 2 Refill(s), Pharmacy: [facility] Start Date: 09/21/22 Status: Ordered methocarbamol [...] Daily, # 90 tab, 3 Refill(s), Pharmacy: [facility] Start Date: 09/02/22 Stop Date: 08/28/23 [...] Tonsillectomy and adenoidectomy 6 Completed 1CAT 2 [id number]... Left parotidectomy 2 to benign tumor, right breast biopsy 6date unknown Results Laboratory List Name Date Automated Diff 12/08/22 CBC w/ Diff 12/08/22 Comprehensive Metabolic Panel (CMP) 12/08 Lipase Level 12/08/22 TSH w/ Rflx to Free T4 12/08/22 Most recent to oldest [Reference Range]: 1 WBC [4.8-10.8 K/mcL] 7.3 K/mcL (12/08/22 12:11 PM) RBC [4.20-5.40 Million/mcL] 4.84 Million /mcL (12/08/22 12:11 PM) Neutro Auto [42.2-75.2 %] 58.6 % (12/08/22 12:11 PM) Lymph Auto [20.5-51.1 %] 30.6 % (12/08/22 12:11 PM) Overton Auto [1.7-9.3 %] 7.9 % (12/08/22 12:11 PM) Basophil Auto [0.0-0.8 %] 0.8 % (12/08/22 12:11 PM) BUN [8-26 mg/dL] 14 mg/dL (12/08/22 12:11 PM) Glucose Level [74-106 mg/dL] 92 mg/dL (12/08/22 12:11 PM) Potassium Level [3.5-5.1 mmol/L] 3.9 mmo l/L (12/08/22 12:11 PM) Baso Absolute [0.0-0.2 K/mcL] 0.1 K/mcL (12/08/22 12:11 PM) MCV [81.0-99.0 fL] 90.9 fL (12/08/22 12:11 PM) AST [15-41 IntlUnit/L] 17 IntlUnit/L (12/08/22 12:11 PM) ALT [14-54 IntlUnit/L] 12 IntlUnit/L *LOW* (12/08/22 12:11 PM) MCHC [32.0-36.0 g/dL] 33.6 g/dL (12/08/22 PM) Osmolality [275-295 mOsm/kg] 274 mOsm/kg *LOW* (12/08/22 PM) Sodium Level [134-143 mmol/L] 137 mmol/L (12/08/22 PM) Lymph Absolute [1.2-3.4 K/mcL] 2.2 K/mcL (12/08/22 PM) Hct [37.0-47.0 %] 44.0 % (12/08/22 PM) Lipase Level [18-51 unit/L] 41 unit/L (12/08/22 PM) Calcium Level [8.9-10.3 mg/dL] 10.0 mg/d L (12/08/22 PM) Overton Absolute [0.1-0.6 K/mcL] 0.6 K/mcL (12/08/22 PM) Albumin Level [3.5-5.0 g/dL] 4.4 g/dL (12/08/22 PM) Protein Total [6.5-8.1 g/dL] 7.6 g/dL (12/08/22 PM) MCH [27.0-31.0 pg] 30.6 pg (12/08/22 PM) Neutro Absolute [1.4-6.5 K/mcL] 4.3 K/mc L (12/08/22 PM) Bilirubin Total [0.2-1.2 mg/dL] 0.6 mg/d L (12/08/22 PM) Hgb [12.0-16.0 g/dL] 14.8 g/dL (12/08/2211 PM) Alk Phos [38-130 IntlUnit/L] 58 IntlUnit /L (12/08/2211 PM) MPV [7.4-10.4 fL] 10.6 fL *HI* (12/08/22 PM) Platelets [130-400 K/mcL] 194 K/mcL (12/08/22:11 PM) CO2 [22-32 mmol/L] 30 mmol/L (12/08/2211 PM) Eos Absolute [0.0-0.2 K/mcL] 0.1 K/mcL (12/08/22 12:11 PM) TSH [0.45-5.33 mIntlUnit/mL] 4.98 mIntlU nit/mL (12/08/22 12:11 PM) Chloride Level [98-111 mmol/L] 99 mmol/L (12/08/22 12:11 PM) RDW-CV [11.5-14.5 %] 12.3 % (12/08/22 12:11 PM) A/G Ratio 1.4 *NA* (12/08/22:11 PM) BUN/Creat Ratio [8.0-20.0] 17.7 (12/08/22:11 PM) Globulin 3.2 *NA* (12/08/22:11 PM) Imm Gran Absolute 0.02 *NA* (12/08/22:11 PM) Imm Gran Auto [0.0-0.5 %] 0.3 % (12/08/22: PM) Slide Review Not Indicated (12/08/22:11 PM) Creatinine Level [0.44-1.00 mg/dL] 0.79 mg/dL (12/08/22:11 PM) Anion Gap [3.0-12.0] 8.0 (12/08/22 12:11 PM) Eos, Auto [0.00-3.00 %] 1.80 % (12/08/22 12:11 PM) eGFR CKD-EPI [>=60 mL/min/1.73 m2] 84 mL /min/1.73 m2 (12/08/22 12:11 PM) Social History Social History Type Response Tobacco Current everyday tob acco user Tobacco Use:. 1/2 ppd depending on stress never over 1 pack per day. Sex Female Patient Care team information Care Team Personnel Name: Ken Murdock DO Position: Physician Member Role: Primary Care Physician Address: Address: [address] [place] [phone] [place] Care Team Related Persons Name: ZANE BANKS Address: Home
--- OUTSIDE RECORDS SUMMARY | 2023-08-16 16:26 | XMS_ITS | Continuity of Care Document ---
Author Name Unknown Organization [facility] Ambulatory Clinics Address [address] [place] [address] Care Team Providers Care Art Instructor Name Role Phone Ken Murdock DO Primary Care Physician Encounter [facility] NBR [id number] Date(s): 12/08/22 - 12/08/22 [facility] Ambulatory Clinics [address] [place], [place] [address] Encounter Diagnosis Abdominal pain, epigastric(Discharge Diagnosis) - 12/08/22 Dyspepsia(Discharge Diagnosis) - 12/08/22 Abdominal bloating(Discharge Diagnosis) - 12/08/22 Discharge Disposition: Home or Self Care Attending [...] Tests Radiology* MG Mammo Screening Bilateral 05/15/22 Functional Status 12/08/22 Other exposure to Infectious Disease Non e [...] anxiety, # 30 tab, 2 Refill(s), Pharmacy: [id number] Start Date: 09/21/22 Status: Ordered methocarbamol [...] Daily, # 90 tab, 3 Refill(s), Pharmacy: [id number] Start Date: 09/02/22 Stop Date: 08/28/23 [...] Tonsillectomy and adenoidectomy 6 Completed 1CAT 2 [id number]... Left parotidectomy 2/2 to benign tumor, right breast biopsy 6date unknown Vital Signs Most recent to oldest [Reference Range]: 1 Peripheral Pulse Rate [60-100 bpm] 90 bp m (12/08/22 11:31 AM) Respiratory Rate [12-24 br/min] 16 br/mi n (12/08/22 11:31 AM) Blood Pressure [90-140/60-90 mmHg] 104/7 2mmHg (12/08/22 11:31 AM) Weight 65.8 kg (12/08/22 11:31 AM) Weight Measured (lbs) 145.064 lb (12/08/22 11:31 AM) [place] Body Weight Calculated 67.323 kg (12/08/22 11:31 AM) Height 176.5 cm (12/08/22 11:31 AM) Height/Length Measured (inches) 69.49 in ch (12/08/22 11:31 AM) BSA Measured 1.8 m2 (12/08/22 11:31 AM) Body Mass Index 21.12 kg/m2 (12/08/22 11:31 AM) Social History Social History Type Response Tobacco Current everyday tob acco user Tobacco Use:. 1/2 ppd depending on stress never over 1 pack per day. Sex Female Hospital Discharge Instructions Follow Up Care 12/08/2022 08:08:21 With:Ken Murdock DO Address: [address] [place] [phone] When: only if needed Physician Outpatient Note * Ken Murdock DO: PERFORM Event Display: Office Clinic Note Physician Authored Date: [id number] OMARI HAWKINS :1960 Age:62 years Sex:Female Visit Date:12/08/2022 Primary Care Physician: Ken Mrudock, DO Chief Complaint Various issues ~ ??? additional B complex Ear Temp.. 97.1 History of Present Illness ?? Patient is a 62-year-old female who comes in today complaining of ongoing abdominal discomfort, bloating, dyspepsia. ??Says she wakes up in the morning with abdominal discomfort??which she localizes in the epigastric area.?? Also notes nausea, no vomiting.?? She says that her stools are intermittently??small, sometimes larger. ??Denies any diarrhea. ??Taking Metamucil for infrequent constipation.?? She said she had a colonoscopy??in [address] Josue, but unsure of pathology or??when??shewas supposed to return.?? Sometimes worse with fatty meals.?? Has tried Lactaid??in case??she is lactose intolerant.?? Symptoms ongoing now for over a month. Review of Systems See HPI otherwise negative. Physical Exam Vitals & Measurements HR:??90??(Peripheral)?? RR:??16?? BP:??104/72?? SpO2:??97%?? HT:??176.5??cm?? WT:??65.8??kg?? BMI:??21.12?? BSA:??1.8?? General: Alert and oriented, well nourished,?No??acute distress Lungs: Clear to auscultation and percussion,?Non-labored?? respiration Heart:?Normal? rate,?Regular??rhythm,?No??murmur,?No??gallop,?No??edema Abdomen: Soft, non-tender??except for some mild epigastric discomfort with palpation, non-distended,?Normal? bowel sounds,?No??masses Musculoskeletal:?Normal? range of motion and strength,?No??tenderness,?No??swelling Assessment/Plan 1.??Abdominal pain, epigastric??R10.13,??Dyspepsia??R10.13 We will check some labs.?? Will refer to gastroenterology for further evaluation and treatment considerations.?? Signs and symptoms to seek more urgent care discussed. Ordered: Automated Diff, Blood, Routine, Collected, 12/08/22 12:11:00 EDT, by Manuel BEARD, Lab Collect, Abdominal bloating Dyspepsia Abdominal pain, epigastric, [id number] CBC w/ Diff, Blood, Routine, Collected, 12/08/22 12:11:00 EDT, by Manuel BEARD, Lab Collect, Dyspepsia Abdominal bloating Comprehensive Metabolic Panel, Blood, Routine, Collected, 12/08/22 12:11:00 EDT, by Manuel BEARD,Lab Collect, Dyspepsia Abdominal bloating Lipase Level, Blood, Routine, Collected, 12/08/22 12:11:00 EDT, by Manuel BEARD, Lab Collect, Dyspepsia Abdominal bloating TSH w/ Rflx to Free T4, Blood, Routine, Collected, 12/08/22 12:11:00 EDT, by Manuel BEARD, Lab Collect, Dyspepsia Abdominal bloating ?? 3.??Abdominal bloating??R14.0 Ordered: Automated Diff, Blood, Routine, Collected, 12/08/22 12:11:00 EDT, by Manuel BEARD, Lab Collect, Abdominal bloating Dyspepsia Abdominal pain, epigastric, [id number] CBC w/ Diff, Blood, Routine, Collected, 12/08/22 12:11:00 EDT, by Manuel BEARD, Lab Collect, Dyspepsia Abdominal bloating Comprehensive Metabolic Panel, Blood, Routine, Collected, 12/08/22 12:11:00 EDT, by Manuel BEARD,Lab Collect, Dyspepsia Abdominal bloating Lipase Level, Blood, Routine, Collected, 12/08/22 12:11:00 EDT, by Manuel BEARD, Lab Collect, Dyspepsia Abdominal bloating TSH w/ Rflx to Free T4, Blood, Routine, Collected, 12/08/22 12:11:00 EDT, by Manuel BEARD, Lab Collect, Dyspepsia Abdominal bloating ?? Referral Orders Referral Management, Medical Service: Gastroenterology, Reason: abdominal pain dyspepsia, bloating, Refer To: Milad Gutiérrez MD, GI Internal, --., Start: 12/08/22 Follow Up Instructions With When Contact Information Ken Murdock DO Only if needed [address] [place] [phone] Additional Instructions: Problem List/Past Medical History Ongoing Abnormal leg movement Acute right-sided low back pain with sciatica Acute swimmer's ear of both sides Anxiety disorder Breast mass, right Centrilobular emphysema Cervical pain Cervicalgia Cholesteatoma of left external auditory canal Compression fracture of body of thoracic vertebra Conductive hearing loss, external ear Cystocele, midline Disorder of bone density and structure, unspecified Emphysema lung Gait disturbance Gastroesophageal reflux disease Hyperlipidemia Impacted cerumen of both ears Kidney stone Mass of female genital structure Migraine without status migrainosus, not intractable Nephrolithiasis Numbness of toes Osteoporosis Other seborrheic keratosis Pulmonary nodules Referred otalgia of left ear Smoker Submandibular sialoadenitis Superficial mycosis, unspecified Tobacco use Historical No qualifying data Procedure/Surgical History ???Colonoscopic polypectomy???Fat graft stomach to neck Medications Advil 200 mg oral tablet, 400 mg= 2 tab, Oral, Daily ALPRAZolam 0.5 mg oral tablet, See Instructions, 2 refills methocarbamol 750 mg oral tablet, 750 mg= 1 tab, Oral, every 4 hr, PRN Tylenol 325 mg oral tablet, 650 mg= 2 tab, Oral, Daily Vitamin D3 2000 intl units oral tablet, 50 mcg= 1 tab, Oral, Daily, 3 refills ZyrTEC 10 mg oral tablet, 10 mg= 1 tab, Oral, Daily, PRN Allergies Chantix Toradol??(itchy, rash on hands and feet) Tylox??(very itchy) Vicodin??(Unknown) azithromycin ciprofloxacin??(? Nausea) diazePAM??(very shakey) penicillin V potassium??(Unknown) traMADol??(Unknown) varenicline??(Unknown) Social History Alcohol Never Electronic Cigarette/Vaping Electronic Cigarette Use: Never. Employment/School Unemployed Home/Environment Lives with Alone. Living situation: Home/Independent. Nutrition/Health Caffeine intake amount: 2-3 cups a day various size cups and amount per day. Tobacco Current everyday tobacco user Tobacco Use:. 1/2 ppd depending on stress never over 1 pack per day. Family History Family Member(s): ?? FATHER, at age: 63 Years. Cause of : Rheumatic Fever ??? Immunizations Vaccine Date Status SARS-CoV-2 (COVID-19) mRNA-1273 vaccine 09/09/2020 Recorded SARS-CoV-2 (COVID-19) mRNA-1273 vaccine 08/12/2020 Recorded Electronically Signed on 12/08/22 12:21 PM Ken Murdock DO Patient Care team information Care Team Personnel Name: Ken Murdock DO Position: Physician Member Role: Primary Care Physician Address: Address: [address] [place] [phone] [place] Care Team Related Persons Name: ZANE BANKS Address: Home
--- OUTSIDE RECORDS SUMMARY | 2023-08-16 16:26 | XMS_ITS | Continuity of Care Document ---
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 1/2 ppd depending on stress never over 1 pack per day. Sex Female Patient Care team information Care Team Personnel Name: Ken Murdock DO Position: Physician Member Role: Primary Care Physician Address: Address: [address] [place] [id number] [place] Care Team Related Persons Name: ZANE BANKS Address: [place]
--- OUTSIDE RECORDS SUMMARY | 2023-08-16 16:26 | XMS_ITS | Continuity of Care Document ---
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 Name Role Phone Ken Murdock DO Primary Care Physician Encounter [facility] NBR [id number] Date(s): 03/01/23 - 03/01/23 [facility] [address] [place], [place] [address] Encounter Diagnosis Polyneuropathy in diseases classified elsewhere(Discharge Diagnosis) - 03/01/23 Peripheral neuropathy(Discharge Diagnosis) - 03/01/23 MGUS (monoclonal gammopathy of unknown significance)(Discharge Diagnosis) - 03/01/23 Neuropathy associated with MGUS(Discharge Diagnosis) - 03/01/23 Discharge Disposition: Home or Self Care Attending Physician: Kam Nye MD Referring Physician: Kam Nye MD Allergies, Adverse Reactions, Alerts Substance Reaction Severity [...] Free K+L Lt Chains,Qn,S LC 12/22/22 Radiology* MG Mammo Screening Bilateral 05/15/22 * XR Bone Survey (Metastatic) 12/12/22 * XR Bone Survey (Metastatic) 12/22/22 Immunizations Given and Recorded Vaccine Date Status Refusal Reason SARS-CoV-2 (COVID-19) mRNA-1273 vaccine 09/09/20 R ecorded SARS-CoV-2 (COVID-19) mRNA-1273 vaccine 08/12/20 R ecorded Medications !-Zofran ODT 4 mg oral tablet, disintegrating 4 mg = 1 tab, Oral, every 8 hr, PRN as needed for nausea/vomiting, # 30 tab, 1 Refill(s), [facility]acy:[id number] Start Date: 12/22/22 Stop Date: 02/20/23 Status: Ordered Advil 200 mg oral tablet 400 mg = 2 tab, Oral, Daily, with food or milk PRN, # 60 tab, 0 Refill(s) Start Date: 11/16/22 Stop Date: 01/07/23 Status: Ordered ALPRAZolam 0.5 mg oral tablet See Instructions, May take 1 tab up to 2 times daily as needed for anxiety, # 30 tab, 2 Refill(s), Pharmacy: [id number] Start Date: 09/21/22 Status: Ordered methocarbamol 750 mg oral tablet 750 mg = 1 tab, Oral, every 4 hr, PRN as needed for pain, PRN, # 60 tab, 0 Refill(s) Start Date: 11/16/22 Status: Ordered pantoprazole 40 mg oral delayed release tablet 40 mg = 1 tab, Oral, Daily, 30 minutes before evening meal, # 30 tab, 3 Refill(s), Pharmacy: [id number] Start Date: 12/22/22 Stop Date: 04/21/23 Status: Ordered Pepcid 20 mg oral tablet 20 mg = 1 tab, Oral, BID, # 60 tab, 3 Refill(s), [facility]: [id number] Start Date: 12/24/22 Stop Date: 04/23/23 Status: Ordered Super B Complex oral tablet 1 tab, Oral, Daily, # 30 tab, 0 Refill(s) Start Date: 02/22/23 Status: Ordered Tessalon Perles 100 mg oral capsule 200 mg = 2 cap, Oral, TID, PRN as needed for cough, # 30 cap, 0 Refill(s), Pharmacy: [id number] Start Date: 02/16/23 Status: Ordered Tylenol 325 mg oral tablet 650 mg = 2 tab, Oral, Daily, # 60 tab, 0 Refill(s) Start Date: 11/16/22 Stop Date: 01/07/23 Status: Ordered Vitamin D3 2000 intl units oral tablet 50 mcg = 1 tab, Oral, Daily, # 90 tab, 3 Refill(s), Pharmacy: [facility] Start Date: 09/02/22 Stop Date: 08/28/23 Status: Ordered Zithromax Z-Philipp 250 mg oral tablet See Instructions, Take 2 tablets on day one. Take 1 tablet days two through five., # 6 tab, 0 Refill(s), Pharmacy: [facility] Start Date: 02/17/23 Status: Ordered ZyrTEC 10 mg oral tablet [...] swimmer's ear of both sides Confirmed Active Change in bowel habits Confirmed Active Anxiety disorder Confirmed Active Biceps [...] bone density and structure, unspecified Confirmed Active Epigastric pain Confirmed Active Extrapyramidal movements Confirmed Active Fatigue Confirmed Active Globus sensation Confirmed Active Fibrocystic changes of both breasts Confirmed Active Full thickness rotator cuff tear Confirmed Active Gastroesophageal reflux disease Confirmed Active Goiter Confirmed Active Graves disease 1 Confirmed Active H/O: ear disorder Confirmed Active Pyrosis Confirmed Active History of adenomatous polyp of colon Confirmed Active History of kidney stone Confirmed Active History of rectal bleeding Confirmed Active Hyperlipidemia Confirmed Active Dyspepsia Confirmed Active Kidney stone Confirmed Active Nephrolithiasis Confirmed Active Left rotator cuff syndrome Confirmed Active Lower abdominal pain Confirmed Active Mass of female genital structure Confirmed Active Cystocele, midline Confirmed Active Midline cystocele Confirmed Active Migraine without status migrainosus, not intractable Confirmed Active Monoclonal gammopathy Confirmed Active Pulmonary nodules Confirmed Active Nausea Confirmed Active Cervical pain Confirmed Active Neck [...] Sialoadenitis of the submandibular gland Confirmed Active Smoker Confirmed Active Smoker Confirmed Active Superficial mycosis, [...] 1auto-populated from documented surgical case 2CAT 2 [id number]... 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 1/2 ppd depending on stress never over 1 pack per day. Sex Female Physician Outpatient Note * Parris RODRIGUEZ, [facility]: PERFORM, MODIFY, MODIFY, MODIFY, MODIFY, MODIFY, MODIFY, MODIFY, MODIFY, MODIFY, MODIFY Event Display: Office Clinic Note Physician Authored Date: [id number] OMARI HAWKINS :1960 Age:62 years Sex:Female Visit Date:03/01/2023 Primary Care Physician: Ken Murdock, DO History of Present Illness March 01, 2023 ?? This very pleasant lady comes for a follow-up evaluation.?? She has peripheral neuropathy probably small fiber neuropathy.?? Her??serum immunofixation done in November 2022 was positive for??IgM lambda.??Her kappa light chains were elevated. ?? We will do an EMG today and we will also get a bone survey. ??She is comfortable with the plan. ??She recently had upper??GI endoscopy and colonoscopy. ?? Nerve conduction studies??done on March 01, 2023??are completely normal.?? This indicates that the patient has small fiber neuropathy.?? I gave her some information about small fiber neuropathy and MGUS.?? I will see her in 6 months Review of Systems ?? The patient has no additional neurologic, psychiatric, head, ears, eyes, nose, throat, pulmonary, cardiovascular, gastrointestinal, musculoskeletal, skin, endocrine, renal, immunological, allergic, lymphoid, rheumatologic??and hematological symptoms other than those noted above Physical Exam She is pleasant awake alert oriented. ??Speech and language are normal.?? Her muscle strength is normal. ??Knee jerks are 2+. ??Ankle jerks are 1+ Assessment/Plan 1.??Neuropathy associated with MGUS??D47.2,??MGUS (monoclonal gammopathy of unknown significance)??D47.2 March 01, 2023 ?? This very pleasant lady comes for a follow-up evaluation.?? She has peripheral neuropathy probably small fiber neuropathy.?? Her??serum immunofixation done in November 2022 was positive for??IgM lambda.??Her kappa light chains were elevated. ?? We will do an EMG today and we will also get a bone survey. ??She is comfortable with the plan. ??She recently had upper??GI endoscopy and colonoscopy. ?? Nerve conduction studies??done on March 01, 2023??are completely normal.?? This indicates that the patient has small fiber neuropathy.?? I gave her some information about small fiber neuropathy and MGUS.?? I will see her in 6 months ? REVIEW OF PRIOR RECORDS ?? 12/12/2022 ?Peripheral neuropathy??G62.9 ??November I had seen the patient on??Nov 24 2022.?? The patient??had presented with symptoms of peripheral neuropathy. ??Neurological exam at shown??stocking sensory deficit. ??I felt that she had small fiber neuropathy. I had ordered some additional lab work. ??Her B12 was somewhat borderline at 336. ??Folate was normal.?? TSH and sed rate was normal.?? Serum protein electrophoresis did not show any M spike. ??However serum immunofixation shows??IgM lambda. ??This suggest that she may have MGUS. ??I spoke with the patient about these results.?? I explained to her there is a 1% risk of MGUS transforming into multiple myeloma. ?? We will do some additional testing including bone marrow survey and some free Lambda Light Chains. ?? We will do an EMG. ?? We will have to continue to follow-up her MGUS. She expressed understanding. ??All questions were answered. ??Thank you ? my note of 11/24/2022 ?Small fiber neuropathy??G62.9 ??Appreciate Dr. Murdock's kind referral. ??Thank you so very much for asking me to see this very pleasant lady. ??I reviewed your excellent note. ?? This pleasant lady states that about a year back she started having some numbness in her??right??outer 3 toes. ??It was intermittent initially. ??But off late it has been constant.?? She finds it uncomfortable when she is driving.?? She has some difficulty with walking. ?? She also complains of some numbness in the left dorsum of the left foot.?? I she has a history of fracture of the right femur when she fell down the stairs in May 2021. ?? She also complains of occasional vibration feeling in her right thigh.?? She denies any low back pain shooting down the right lower limb. ?? Neurological exam shows mild??stocking sensory deficit to pinprick from the toes to the mid foot.?? She has normal strength gait is unremarkable??normal deep tendon reflexes. ??Ankle jerks may be slightly diminished but they are still present.?? Position and vibration sense are normal. ?She could be having small fiber neuropathy. ?? I would like to get lab work-up for peripheral neuropathy.?? Her CBC and metabolic panel from July 2022 were unremarkable. ?? Further management based on that. ??May consider EMG. ?? Follow-up in 6 months. ??[1] ? PLAN: ?? February ?? March 01, 2023 ?? This very pleasant lady comes for a follow-up evaluation.?? She has peripheral neuropathy probably small fiber neuropathy.?? Her??serum immunofixation done in November 2022 was positive for??IgM lambda.??Her kappa light chains were elevated. ?? We will do an EMG today and we will also get a bone survey. ??She is comfortable with the plan. ??She recently had upper??GI endoscopy and colonoscopy. ?? Nerve conduction studies??done on March 01, 2023??are completely normal.?? This indicates that the patient has small fiber neuropathy.?? I gave her some information about small fiber neuropathy and MGUS.?? I will see her in 6 months ? 2.??MGUS (monoclonal gammopathy of unknown significance)??D47.2 Ordered: XR Bone Survey (Metastatic), 03/01/23, Routine, Reason: looking for myeloma, Transport Mode: Ambulatory, MGUS (monoclonal gammopathy of unknown significance) Neuropathy associated with MGUS Peripheral neuropathy ?? 2.??Peripheral neuropathy??G62.9 Ordered: XR Bone Survey (Metastatic), 03/01/23, Routine, Reason: looking for myeloma, Transport Mode: Ambulatory, MGUS (monoclonal gammopathy of unknown significance) Neuropathy associated with MGUS Peripheral neuropathy ?? Polyneuropathy in diseases classified elsewhere??G63 ?? 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 Closed fracture of neck of femur Compression fracture of body of thoracic vertebra Conductive hearing loss, external ear Cystocele, midline Degenerative joint disease of shoulder region Delay when starting to pass urine Disorder of bone density and structure, unspecified Dyspepsia Emphysema lung Epigastric pain Extrapyramidal movements Fatigue Fibrocystic changes of both breasts Full thickness rotator cuff tear Gait disturbance Gastroesophageal reflux disease Globus sensation Goiter Graves disease H/O: ear disorder History of adenomatous polyp of colon History of kidney stone History of rectal bleeding Hyperlipidemia Kidney stone Left rotator cuff syndrome Lower abdominal pain Mass of female genital structure Midline cystocele Migraine without status migrainosus, not intractable Monoclonal gammopathy Nausea Neck pain Nephrolithiasis Neuralgia Numbness of toes Osteochondropathy Osteoporosis Otalgia of left ear Other seborrheic keratosis Otomycosis Pathological fracture of vertebra Plantar wart of left foot Primary osteoporosis Pulmonary nodules Pyrosis Referred otalgia of left ear Restless legs syndrome Seborrheic keratosis Sialoadenitis of the submandibular gland Smoker Smoker Submandibular sialoadenitis Superficial mycosis, unspecified Thyroid disease Tobacco user von Willebrand's disease Historical Acute back pain with sciatica Acute maxillary sinusitis Acute otitis externa Adhesive capsulitis of shoulder Anxiety disorder Cellulitis Cervicalgia External ear conductive hearing loss Gastroesophageal reflux disease Hyperlipidemia Impacted cerumen Impacted cerumen of both ears Kidney stone Mass of female genital structure Migraine Multiple nodules of lung Otitis externa Tobacco use Procedure/Surgical History ???Esophagogastroduodenoscopy and Colonoscopy with Biopsy (02/25/2023)???Mammogram (04/13/2019)???Injection left shoulder, cortisone (01/05/2017)???Right Ureteroscopy and laser lithotripsy (11/08/2015 )???Colonoscopic polypectomy???Hysterectomy.... subtotal abdominal , due to risk of cancer???Procedure???Fat graft stomach to neck???Tonsillectomy and adenoidectomy Medications !-Zofran ODT 4 mg oral tablet, disintegrating, 4 mg= 1 tab, Oral, every 8 hr, PRN, 1 refills Advil 200 mg oral tablet, 400 mg= 2 tab, Oral, Daily ALPRAZolam 0.5 mg oral tablet, See Instructions, 2 refills methocarbamol 750 mg oral tablet, 750 mg= 1 tab, Oral, every 4 hr, PRN pantoprazole 40 mg oral delayed release tablet, 40 mg= 1 tab, Oral, Daily, 3 refills Pepcid 20 mg oral tablet, 20 mg= 1 tab, Oral, BID, 3 refills Super B Complex oral tablet, 1 tab, Oral, Daily Tessalon Perles 100 mg oral capsule, 200 mg= 2 cap, Oral, TID, PRN Tylenol 325 mg oral tablet, 650 mg= 2 tab, Oral, Daily Vitamin D3 2000 intl units oral tablet, 50 mcg= 1 tab, Oral, Daily, 3 refills Zithromax Z-Philipp 250 mg oral tablet, See Instructions ZyrTEC 10 mg oral tablet, 10 mg= 1 tab, Oral, Daily, PRN Allergies Vicodin??(Itchy, Unknown) Chantix Toradol??(itchy, rash on hands and feet) Tylox??(very itchy) azithromycin??(Rash) ciprofloxacin??(? Nausea) diazePAM??(very shakey) penicillin V potassium??(Unknown) traMADol??(Unknown) varenicline??(Unknown) Social History Alcohol Never Electronic Cigarette/Vaping Electronic Cigarette Use: Never. Employment/School Highest education level: High school. Home/Environment Lives with Alone. Living situation: Home/Independent. Nutrition/Health Caffeine intake amount: 2-3 cups a day various size cups and amount per day. 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 many years [...] Recorded SARS-CoV-2 (COVID-19) mRNA-1273 vaccine 08/12/2020 Recorded Attending Attestation ?? Risks, Benefits , alternatives and complications discussed with the patient.Total??time spent on the day of the visit ( both previsit, during and post visit) was??31 minutes spent discussing diagnosis, prognosis, work- up and management. ??Additional 25 minutes was spent in EMG ?? Time was also spent in reviewing medical records, personally reviewing images and interpreting it, personally reviewing and interpreting electrodiagnostic studies, labs and discussing with other providers. ?? Thank you very much for allowing us to participate in the care of your patient. Please do not hesitate to call if you have any questions or comments. ?? This document was prepared using [employer] voice recognition software.Please excuse any errors.?? Electronically Signed on 03/01/23 11:59 AM Parris RODRIGUEZ, Kam Patient Care team information Care Team Personnel Name: Ken Murdock DO Position: Physician Member Role: Primary Care Physician Address: Address: [address] [place] [phone] [place] Care Team Related Persons Name: ZANE BANKS Address: Home
--- OUTSIDE RECORDS SUMMARY | 2023-08-16 16:26 | XMS_ITS | Continuity of Care Document ---
Author Name Unknown Organization [facility] Address [address] [place] [address] Care Team Providers Care Consultant Intern Name Role Phone Ken Murdock DO Primary Care Physician [phone] Encounter [facility] FIN NBR [id number] Date(s): 11/24/22 - 11/24/22 [facility] [address], [place] [address] Encounter Diagnosis Small fiber neuropathy(Discharge Diagnosis) - 11/24/22 Numbness of toes(Discharge Diagnosis) - 11/24/22 Discharge Disposition: Home or Self Care Attending Physician: Kam Nye MD Allergies, Adverse Reactions, [...] MG Mammo Screening Bilateral 05/15/22 Functional Status 11/24/22 Other exposure to Infectious Disease Non e Medications Advil 200 mg oral tablet 0 Refill(s) Start Date: 11/16/22 Status: Ordered ALPRAZolam 0.5 mg oral tablet See Instructions, May take 1 tab up to 2 times daily as needed for anxiety, # 30 tab, 2 Refill(s), [facility]acy: [id number] Start Date: 09/21/22 Status: Ordered methocarbamol 750 mg oral tablet 750 mg = 1 tab, Oral, TID, PRN muscle pain, 0 Refill(s) Start Date: 11/16/22 Status: Ordered MiraLax 17 g =, Oral, Daily, PRN constipation, 0 Refill(s) Start Date: 11/16/22 Status: Ordered Therapeutic Multiple Vitamins with Minerals, Zinc and Elderberry oral lozenge See Instructions, 0 Refill(s) Start Date: 11/24/22 Status: Ordered Tylenol 325 mg oral tablet 2 Unknown, 0 Refill(s) Start Date: 11/16/22 Status: Ordered Vitamin D3 2000 intl units oral tablet 50 mcg = 1 tab, Oral, Daily, # 90 tab, 3 Refill(s), Pharmacy: [facility] #93 Start Date: 09/02/22 Stop Date: 08/28/23 [...] without status migrainosus, not intractable Confirmed Active Cervical pain Confirmed Active Cervicalgia Confirmed Active Numbness of toes Confirmed Active Osteoporosis Confirmed Active Referred otalgia of left ear Confirmed Active Other seborrheic keratosis Confirmed Active Submandibular sialoadenitis Confirmed Active Smoker Confirmed Active Superficial mycosis, unspecified Confirmed Active Vital Signs Most recent to oldest [Reference Range]: 1 Peripheral Pulse Rate [60-100 bpm] 78 bp m (11/24/22 1:17 PM) Blood Pressure [90-140/60-90 mmHg] 114/7 6mmHg (11/24/22 1:17 PM) Weight 65.5 kg (11/24/22 1:17 PM) Weight Measured (lbs) 144.403 lb (11/24/22 1:17 PM) [place] Body Weight Calculated 66.2 kg (11/24/22 1:17 PM) Height 175.26 cm (11/24/22 1:17 PM) Height/Length Measured (inches) 69 inch (11/24/22 1:17 PM) BSA Measured 1.79 m2 (11/24/22 1:17 PM) Body Mass Index 21.32 kg/m2 (11/24/22 1:17 PM) Social History Social History Type Response Tobacco Current everyday tob acco user Tobacco Use:. Sex Female Physician Outpatient Note * Kam Nye MD: PERFORM, MODIFY, MODIFY, MODIFY, MODIFY, MODIFY Event Display: Office Clinic Note Physician Authored Date: [id number] OMARI HAWKINS :1960 Age:62 years Sex:Female Visit Date:11/24/2022 Primary Care Physician: Ken Murdock DO Chief Complaint PT comes today by herself. She reports numbness of right foot, toes 3, 4, &5. She has hx of fractured femur when she fell down stairs at [facility] after Reclast infusion 2020. She notes unsteadiness, uses a cane at times. History of Present Illness Dear Dr. Murdock, ?? Thank you so very much for asking me [...] the stairs in May 2021. ?? She complains of??a vibrating feeling in her right thigh occasionally when she is standing up.?she has no??low back pain radiating down the right leg. Review of Systems ?? The patient has no additional neurologic, psychiatric, head, ears, eyes, nose, throat, pulmonary, cardiovascular, gastrointestinal, musculoskeletal, skin, endocrine, renal, immunological, allergic, lymphoid, rheumatologic??and hematological symptoms other than those noted above Physical Exam Vitals & Measurements HR:??78??(Peripheral)?? BP:??114/76?? HT:??175.26??cm?? WT:??65.5??kg?? BMI:??21.32?? BSA:??1.79?? She has some proptosis of her eyes.?? She is pleasant awake alert oriented. ??Speech and language are normal. ??Visual toth are full. ??Eye movements intact.?? Muscle strength is 5/5. ??Face is symmetrical. ?? Deep tendon reflexes are 1+ in the upper limbs. ??No Alfaro reflex. ??Knee jerks are 2+.?? Ankle jerks are 1+. ?? Position and vibration sense are normal.?? Vibration Merry slightly decreased in the right great toe. ?? There is a mild stocking sensory deficit to pinprick and cotton-wool??up to the mid??foot Assessment/Plan 1.??Small fiber neuropathy??G62.[address] Murdock's kind referral. Thank you so very much for asking me [...] her right thigh.?? She denies any low backpain shooting down the right lower limb. ?? Neurological exam shows mild??stocking sensory deficit to pinprick from the toes to the mid foot.??She has normal strength gait is unremarkable??normal deep tendon reflexes. ??Ankle jerks may be slightly diminished but they are still present.?? Position and vibration sense are normal. ?? She could be having small fiber neuropathy. ?? I would like to get lab work-up for peripheral neuropathy.?? Her CBC and metabolic panel from July 2022 were unremarkable. ?? Further management based on that. ??May consider EMG. ?? Follow-up in 6 months. 2.??Numbness of toes??R20.0 Problem List/Past Medical History Ongoing Abnormal leg movement Acute right-sided low back pain with sciatica Acute swimmer's ear of both sides Anxiety disorder Breast mass, right Centrilobular emphysema Cervical pain Cervicalgia Cholesteatoma of left external auditory canal Compression fracture of body of thoracic vertebra Conductive hearing loss, external ear Cystocele, midline Disorder of bone density and structure, unspecified Gait disturbance Gastroesophageal reflux disease Hyperlipidemia Impacted cerumen of both ears Kidney stone Mass of female genital structure Migraine without status migrainosus, not intractable Nephrolithiasis Numbness of toes Osteoporosis Other seborrheic keratosis Referred otalgia of left ear Smoker Submandibular sialoadenitis Superficial mycosis, unspecified Tobacco use Historical No qualifying data Medications Advil 200 mg oral tablet ALPRAZolam 0.5 mg oral tablet, See Instructions, 2 refills methocarbamol 750 mg oral tablet, 750 mg= 1 tab, Oral, TID, PRN MiraLax, 17 g, Oral, Daily, PRN Therapeutic Multiple Vitamins with Minerals, Zinc and Elderberry oral lozenge, See Instructions Tylenol 325 mg oral tablet Vitamin D3 2000 intl units oral tablet, 50 mcg= 1 tab, Oral, Daily, 3 refills ZyrTEC 10 mg oral tablet, 10 mg= 1 tab, Oral, Daily, PRN Allergies Chantix Toradol??(itchy, rash on hands and feet) Tylox??(very itchy) Vicodin??(Unknown) azithromycin ciprofloxacin??(? Nausea) diazePAM??(very shakey) penicillin V potassium??(Unknown) traMADol??(Unknown) varenicline??(Unknown) Social History Alcohol Never Electronic Cigarette/Vaping Electronic Cigarette Use: Never. Tobacco Current everyday tobacco user Tobacco Use:. Attending Attestation ?? Risks, Benefits , alternatives and complications discussed with the patient.Total??time spent on the day of the visit ( both previsit, during and post visit) was??62 minutes spent discussing diagnosis, prognosis, work- up and management. Time was also spent in reviewing medical records, personally r eviewing images and interpreting it, personally reviewing and interpreting electrodiagnostic studies, labs and discussing with other providers. ?? Thank you very much for allowing us to participate in the care of your patient. Please do not hesitate to call if you have any questions or comments. ?? This document was prepared using [employer] voice recognition software.Please excuse any errors.?? Electronically Signed on 11/24/22 05:29 PM Kam Nye MD Patient Care team information Care Team Personnel Name: Ken Murdock DO Position: Physician Member Role: Primary Care Physician Address: Address: [address] [place] [phone] [place] Care Team Related Persons Name: ZANE BANKS Address: Home
--- OUTSIDE RECORDS SUMMARY | 2023-08-16 16:26 | XMS_ITS | Continuity of Care Document ---
Author Name Unknown Organization [facility] Address [address] [place] [address] Care Team Providers Care Stem Assembler Name Role Phone Ken Murdock DO Primary Care Physician Encounter [facility] NBR [id number] Date(s): 05/05/23 - 05/05/23 [facility] [address] [place], [place] [address] Discharge Disposition: Home or Self Care Attending [...] anxiety, # 30 tab, 2 Refill(s), Pharmacy: [facility] Start Date: 09/21/22 Status: Ordered methocarbamol 750 mg oral tablet 750 mg = 1 tab, Oral, every 4 hr, PRN as needed for pain, PRN, # 60 tab, 0 Refill(s) Start Date: 11/16/22 Status: Ordered pantoprazole 40 mg oral delayed release tablet 40 mg = 1 tab, Oral, Daily, 30 minutes before, # 30 tab, 11 Refill(s), Pharmacy: [facility] #[facility], 175.26, cm, 02/22/23 17:26:00 EDT, Height/Length Dosing, 63.5, kg, 02/22/23 17:26:00 EDT, Weight Dosing Start Date: 04/12/23 Stop Date: 04/06/24 Status: Ordered Pepcid 20 mg oral tablet 20 mg = 1 tab, Oral, BID, PRN heartburn, # 60 tab, 11 Refill(s), Pharmacy: [facility] #93, 175.26, cm, 02/22/23 17:26:00 EDT, Height/Length Dosing, 63.5, kg, 02/22/23 17:26:00 EDT, Weight Dosing Start Date: 04/12/23 Stop Date: 04/06/24 Status: Ordered Vitamin B12 1,000 mcg =, Oral, Daily, 0 Refill(s) Start Date: 03/22/23 Status: Ordered Vitamin D3 2000 intl units oral tablet 50 mcg = 1 tab, Oral, Daily, # 90 tab, 3 Refill(s), Pharmacy: [facility] #[facility] Start Date: 09/02/22 Stop Date: 08/28/23 Status: Ordered Wellbutrin XL 150 mg/24 hours oral tablet, extended release 150 mg = 1 tab, Oral, every 24 hr, # 30 tab, 11 Refill(s), Pharmacy: [facility] #[facility], 175.26, cm, 02/22/23 17:26:00 EDT, Height/Length [...] 1auto-populated from documented surgical case 2CAT 2 [id number]... 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 1/2 ppd depending on stress never over 1 pack per day. Sex Female Patient Care team information Care Team Personnel Name: Ken Murdock DO Position: Physician Member Role: Primary Care Physician Address: Address: [address] [place] [phone] [place] Care Team Related Persons Name: ZANE BANKS
--- OUTSIDE RECORDS SUMMARY | 2023-08-16 16:26 | XMS_ITS | Continuity of Care Document ---
Author Name Unknown Organization [facility] Address [address] [place] [address] Care Team Providers Care Media Professional Name Role Phone Ken Murdock DO Primary Care Physician [phone] Encounter [facility] NBR [id number] Date(s): 03/01/23 - 03/01/23 [facility] [address] [place] [address]- Encounter Diagnosis Polyneuropathy in diseases classified elsewhere(Discharge Diagnosis) - 03/01/23 Monoclonal gammopathy(Final) - Polyneuropathy, unspecified(Final) - Discharge Disposition: Home or Self Care Attending Physician: Kam Nye MD Admitting Physician: Kam Nye MD Referring Physician: Kam [...] for nausea/vomiting, # 30 tab, 1 Refill(s), Pharmacy:[facility] Start Date: 12/22/22 Stop Date: 02/20/23 [...] # 30 tab, 2 Refill(s), Pharmacy: [facility] Start Date: 09/21/22 Status: Ordered methocarbamol 750 mg oral tablet 750 mg = 1 tab, Oral, every 4 hr, PRN as needed for pain, PRN, # 60 tab, 0 Refill(s) Start Date: 11/16/22 Status: Ordered pantoprazole 40 mg oral delayed release tablet 40 mg = 1 tab, Oral, Daily, 30 minutes before evening meal, # 30 tab, 3 Refill(s), [facility] Start Date: 12/22/22 Stop Date: 04/21/23 Status: Ordered Pepcid 20 mg oral tablet 20 mg = 1 tab, Oral, BID, # 60 tab, 3 Refill(s), Pharmacy: [facility] Start Date: 12/24/22 Stop Date: 04/23/23 Status: Ordered Super B Complex oral tablet 1 tab, Oral, Daily, # 30 tab, 0 Refill(s) Start Date: 02/22/23 Status: Ordered Tessalon Perles 100 mg oral capsule 200 mg = 2 cap, Oral, TID, PRN as needed for cough, # 30 cap, 0 Refill(s), Pharmacy: [facility] #[facility] Start Date: 02/16/23 Status: Ordered Tylenol 325 mg oral tablet 650 mg = 2 tab, Oral, Daily, # 60 tab, 0 Refill(s) Start Date: 11/16/22 Stop Date: 01/07/23 Status: Ordered Vitamin D3 2000 intl units oral tablet 50 mcg = 1 tab, Oral, Daily, # 90 tab, 3 Refill(s), Pharmacy: [facility] Start Date: 09/02/22 Stop Date: 08/28/23 Status: Ordered Zithromax Z-Philipp 250 mg oral tablet See Instructions, Take 2 tablets on day one. Take 1 tablet days two through five., # 6 tab, 0 Refill(s), Pharmacy: [facility] #[facility] Start Date: 02/17/23 Status: Ordered ZyrTEC [...] 1auto-populated from documented surgical case 2CAT 2 [id number]... Left parotidectomy / to benign tumor, right breast biopsy 7date unknown Results Radiology Reports * Exam Date Time Procedure Performing Provider Status 03/01/23 12:41 PM XR Bone Survey (Metastatic) Kevin Ash ristopher C; Auth (Verified) Notes: (XR Bone Survey (Metastatic)) Reason For Exam: looking for myeloma XR Bone Survey (Metastatic) EXAM DESCRIPTION: XR Bone Survey (Metastatic) 03/01/2023 INDICATION: LOOKING FOR MYELOMA TECHNIQUE: A metastatic bone survey was performed including a lateral view of the skull, AP and lateral views of the cervical, thoracic and lumbar spine, AP views of the humerus and femur bilaterally as well as AP views of the chest and pelvis. Image number: 13 COMPARISON: None IMPRESSION: No focal lytic or destructive lesions to suggest multiple myeloma. Ovoid sclerotic focus overlying the left patella or distal left femur on AP left thigh view. This may reflect bone island. Metastatic lesion is difficult to exclude. Otherwise no focal lytic or sclerotic lesions. Mild spondylotic changes in midthoracic region. JOB #: [id number] Final Signed by: Cy De Dios MD Signed (Electronic Signature): 03/01/2023 1:06 pm Social History Social History Type Response Tobacco Current everyday tob acco user Tobacco Use:. 1/2 ppd depending on stress never over 1 pack per day. Sex Female Patient Care team information Care Team Personnel Name: Ken Murdock DO Position: Physician Member Role: Primary Care Physician Address: Address: [address] [place] [phone] [place] Care Team Related Persons Name: ZANE BANKS Address: [place]
--- OUTSIDE RECORDS SUMMARY | 2023-08-16 16:26 | XMS_ITS | Continuity of Care Document ---
Author Name Unknown Organization [facility] Address [address] [place] [address] Care Team Providers Care Client Services Assistant Name Role Phone Ken Murdock DO Primary Care Physician Encounter [facility] NBR [id number] Date(s): 12/22/22 - 12/22/22 [facility] [address] [place], [place] [address] Discharge Disposition: Home or Self Care Attending Physician: Kam Nye MD Admitting Physician: Kam Nye MD Referring Physician: Ken Murdock DO Allergies, Adverse [...] Unknown Active Assessment and Plan Future Appointments Diagnostic Tests Pending * Free K+L Lt Chains,Qn,S LC 12/22/22 Future Scheduled Tests Laboratory* Free K+L Lt [...] for nausea/vomiting, # 30 tab, 1 Refill(s), Pharmacy:[facility] Start Date: 12/22/22 Stop Date: 02/20/23 [...] anxiety, # 30 tab, 2 Refill(s), Pharmacy: [facility] Start Date: 09/21/22 Status: Ordered methocarbamol 750 mg oral tablet 750 mg = 1 tab, Oral, every 4 hr, PRN as needed for pain, PRN, # 60 tab, 0 Refill(s) Start Date: 11/16/22 Status: Ordered pantoprazole 40 mg oral delayed release tablet 40 mg = 1 tab, Oral, Daily, 30 minutes before evening meal, # 30 tab, 3 Refill(s), [facility] Start Date: 12/22/22 Stop Date: 04/21/23 Status: Ordered Tylenol 325 mg oral tablet 650 mg = 2 tab, Oral, Daily, # 60 tab, 0 Refill(s) Start Date: 11/16/22 Stop Date: 01/07/23 Status: Ordered Vitamin D3 2000 intl units oral tablet 50 mcg = 1 tab, Oral, Daily, # 90 tab, 3 Refill(s), Pharmacy: [facility] Start Date: 09/02/22 Stop Date: 08/28/23 Status: Ordered ZyrTEC 10 mg oral tablet 10 mg = 1 tab, Oral, Daily, PRN as needed for allergy symptoms Start Date: 11/24/22 Status: Ordered Problem List Condition Confirmation Course Effective Dates Status H ealth Status Informant Bloating Confirmed Active Gait disturbance Confirmed Active Abnormal leg movement Confirmed Active Acute right-sided low back pain with sciatica Confirmed Active Acute swimmer's ear of both sides Confirmed Active Change in bowel habits Confirmed Active Anxiety disorder Confirmed Active Breast mass, right Confirmed Active Centrilobular emphysema Confirmed Active Chest pain Confirmed Active 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 Compression fracture of body of thoracic vertebra Confirmed Active Conductive hearing loss, external ear Confirmed Active Disorder of bone density and structure, unspecified Confirmed Active Epigastric pain Confirmed Active Fatigue Confirmed Active Globus sensation Confirmed Active Fibrocystic changes of both breasts Confirmed Active Tobacco use Confirmed Active Gastroesophageal reflux disease Confirmed Active Goiter Confirmed Active Graves disease 1 Confirmed Active Pyrosis Confirmed Active History of kidney stone Confirmed Active History of rectal bleeding Confirmed Active Hyperlipidemia Confirmed Active Impacted cerumen of both ears Confirmed Active Kidney stone Confirmed Active Nephrolithiasis Confirmed Active Lower abdominal pain Confirmed Active Mass of female genital structure Confirmed Active Cystocele, midline Confirmed Active Migraine without status migrainosus, not intractable Confirmed Active Pulmonary nodules Confirmed Active Nausea Confirmed Active Cervical pain Confirmed Active Cervicalgia Confirmed Active Neuralgia Confirmed Active Numbness of toes Confirmed Active Osteoporosis Confirmed Active Emphysema lung Confirmed Active Referred otalgia of left ear Confirmed Active Restless legs syndrome Confirmed Active Other seborrheic keratosis Confirmed Active Seborrheic keratosis Confirmed Active Submandibular sialoadenitis Confirmed Active Smoker Confirmed Active Superficial mycosis, unspecified Confirmed Active Thyroid disease Confirmed Active von Willebrand's disease Confirmed Active [...] Tonsillectomy and adenoidectomy 6 Completed 1CAT 2 [id number]... 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 1/2 ppd depending on stress never over 1 pack per day. Sex Female Patient Care team information Care Team Personnel Name: Ken Murdock DO Position: Physician Member Role: Primary Care Physician Address: Address: [address] [place] [phone] [place] Care Team Related Persons Name: ZANE BANKS Address: Home
--- OUTSIDE RECORDS SUMMARY | 2023-08-16 16:26 | XMS_ITS | Continuity of Care Document ---
Author Name Unknown Organization [facility] Address [address] [place] [address] Care Team Providers Care Strategic Advisor Name Role Phone Ken Murdock DO Primary Care Physician Encounter [facility] [facility] NBR [id number] Date(s): 02/08/23 - 02/08/23 [facility] [address] [place] [address]- Encounter Diagnosis Peripheral neuropathy(Discharge Diagnosis) - 02/08/23 Polyneuropathy, unspecified(Final) - Discharge Disposition: Home or Self Care Attending Physician: Jh Martino MD Allergies, Adverse Reactions, Alerts Substance Reaction Severity Status ciprofloxacin ? Nausea Unknown Active azithromycin Unknown Active varenicline Unknown Unknown Active traMADol Unknown Unknown Active diazePAM very shakey Unknown Active Chantix Unknown Active penicillin V potassium Unknown Unknown Activ e Vicodin Unknown Unknown Active Toradol itchy, rash on hands and feet Unknown Active Tylox very itchy Unknown Active Assessment and Plan Future Appointments Future Scheduled Tests Laboratory* Free K+L Lt Chains,Qn,S LC 12/22/22 Radiology* MG Mammo Screening Bilateral 05/15/22 * XR Bone Survey (Metastatic) 12/12/22 * XR Bone Survey (Metastatic) 12/22/22 Functional Status 02/08/23 Other exposure to Infectious Disease Non e Immunizations Given and Recorded Vaccine Date Status Refusal Reason SARS-CoV-2 (COVID-19) mRNA-1273 vaccine 09/09/20 R ecorded SARS-CoV-2 (COVID-19) mRNA-1273 vaccine 08/12/20 R ecorded Medications !-Zofran ODT 4 mg oral tablet, disintegrating 4 mg = 1 tab, Oral, every 8 hr, PRN as needed for nausea/vomiting, # 30 tab, 1 Refill(s), Pharmacy:[id number] Start Date: 12/22/22 Stop Date: 02/20/23 Status: Ordered [facility] - [facility] [place] Prescription 90 unknown unit, 0 Refill(s) Start Date: 02/08/23 Status: Ordered Advil 200 mg oral tablet 400 mg = 2 tab, Oral, Daily, with food or milk PRN, # 60 tab, 0 Refill(s) Start Date: 11/16/22 Stop Date: 01/07/23 Status: Ordered ALPRAZolam 0.5 mg oral tablet See Instructions, May take 1 tab up to 2 times daily as needed for anxiety, # 30 tab, 2 Refill(s), Pharmacy: [id number] Start Date: 09/21/22 Status: Ordered famotidine 20 mg oral tablet 60 EA, TAKE ONE TABLET BY MOUTH TWICE A DAY, 0 Refill(s) Start Date: 02/08/23 Status: Ordered methocarbamol 750 mg oral tablet 750 mg = 1 tab, Oral, every 4 hr, PRN as needed for pain, PRN, # 60 tab, 0 Refill(s) Start Date: 11/16/22 Status: Ordered ondansetron 4 mg oral tablet, disintegrating 30 EA, DISSOLVE ONE TABLET ON THE TONGUE EVERY 8 HOURS FOR 30 DAYS NEEDED FOR NAUSEA AND VOMITING, 0 Refill(s) Start Date: 02/08/23 Status: Ordered pantoprazole 40 mg oral delayed release tablet 40 mg = 1 tab, Oral, Daily, 30 minutes before evening meal, # 30 tab, 3 Refill(s), [id number] Start Date: 12/22/22 Stop Date: 04/21/23 Status: Ordered Pepcid 20 mg oral tablet 20 mg = 1 tab, Oral, BID, # 60 tab, 3 Refill(s), Pharmacy: [id number] Start Date: 12/24/22 Stop Date: 04/23/23 Status: Ordered Tylenol 325 mg oral tablet 650 mg = 2 tab, Oral, Daily, # 60 tab, 0 Refill(s) Start Date: 11/16/22 Stop Date: 01/07/23 Status: Ordered Vitamin D3 2000 intl units oral tablet 50 mcg = 1 tab, Oral, Daily, # 90 tab, 3 Refill(s), Pharmacy: [id number] Start Date: 09/02/22 Stop Date: 08/28/23 [...] back pain with sciatica Confirmed Active Acute back pain with sciatica Confirmed Active Acute maxillary sinusitis Confirmed Active Acute swimmer's ear of both sides Confirmed Active Acute otitis externa Confirmed Active Adhesive capsulitis of shoulder Confirmed Active Change in bowel habits Confirmed Active Anxiety disorder Confirmed Active Anxiety disorder Confirmed Active Biceps tendinitis Confirmed Active Breast mass, right Confirmed Active Breast lump Confirmed Active Cellulitis Confirmed Active Centrilobular emphysema Confirmed Active Centriacinar [...] unspecified Confirmed Active Epigastric pain Confirmed Active External ear conductive hearing loss Confirmed Active Extrapyramidal movements Confirmed Active Fatigue Confirmed Active Globus sensation Confirmed Active Fibrocystic changes of both breasts Confirmed Active Tobacco use Confirmed Active Full thickness rotator cuff tear Confirmed Active Gastroesophageal reflux disease Confirmed Active Gastroesophageal reflux disease Confirmed Active Goiter Confirmed Active Graves disease 1 Confirmed Active H/O: ear disorder Confirmed Active Pyrosis Confirmed Active History of kidney stone Confirmed Active History of rectal bleeding Confirmed Active Hyperlipidemia Confirmed Active Hyperlipidemia Confirmed Active Impacted cerumen of both ears Confirmed Active Impacted cerumen Confirmed Active Kidney stone Confirmed Active Nephrolithiasis Confirmed Active Kidney stone Confirmed Active Left rotator cuff syndrome Confirmed Active Lower abdominal pain Confirmed Active Mass of female genital structure Confirmed Active Mass of female genital structure Confirmed Active Cystocele, midline Confirmed Active Midline cystocele Confirmed Active Migraine without status migrainosus, not intractable Confirmed Active Migraine Confirmed Active Pulmonary nodules Confirmed Active Multiple nodules of lung Confirmed Active Nausea Confirmed Active Cervical pain Confirmed Active Cervicalgia Confirmed Active Neck pain Confirmed Active Neuralgia Confirmed Active Numbness of toes Confirmed Active Osteochondropathy Confirmed Active Osteoporosis Confirmed Active Otalgia of left ear Confirmed Active Otitis externa Confirmed Active Otomycosis Confirmed Active Pathological fracture [...] Tonsillectomy and adenoidectomy 6 Completed 1CAT 2 [id number]... 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 1/2 ppd depending on stress never over 1 pack per day. Sex Female Physician Outpatient Note * Jh Martino MD: PERFORM Event Display: Office Clinic Note Physician Authored Date: [id number] OMARI HAWKINS :1960 Age:62 years Sex:Female Visit Date:02/08/2023 Primary Care Physician: Ken Ale, DO Chief Complaint RIGHT HIP History of Present Illness I am seeing this patient this morning.?? She has quite a few??medical issues going on.?? She is known for having neuropathy.?? She also has a history of??chronic lower back pain and??sciatica.?? I know her because she had a minimally displaced femoral neck fracture of her right hip??in May 2021. ??She was treated with an??FNS implant.?? She had no issues postop.?? But she is coming back to see me today because she is wondering if there is anything wrong with her hip.?? She is having some occasional discomfort over the lateral aspect of her proximal right thigh.?? She is also complaining of nerve irritation in both legs.?? She has no mechanical pain and no pain with walking. Review of Systems Constitutional:?No??fevers,?No??chills,?No??sweats Eye:?No??recent visual problems ENT:?No??ear pain,?No??nasal congestion,?No??sore throat Respiratory:?No??shortness of breath,?No??cough Cardiovascular:?No??Chest pain,?No??palpitations,?No??syncope Gastrointestinal:?Nonausea,?No??vomiting,?No??diarrhea Genitourinary:?No??hematuria Adalberto/Lymph:?No??bruising tendency,?No??swollen lymph glands Endocrine:?No??excessive thirst,??No??excessive hunger Musculoskeletal:??No??back pain,??No??neck pain,??No??joint pain,??No??muscle pain,??No??decreased range of motion Integumentary:?No??rash,?No??pruritus,?No??abrasions Neurologic: Alert & oriented X 4 Psychiatric:?No??anxiety,?No??depression Physical Exam Vitals & Measurements HR:??81??(Peripheral)?? BP:??118/70?? SpO2:??98%?? HT:??175.25??cm?? WT:??63.50??kg?? BMI:??20.68?? BSA:??1.76?? General: Alert and oriented, well nourished,?No??acute distress Eye: PERRL, EOMI,?Normal?conjunctiva HENT: Normocephalic, clear tympanic membranes,?Normal? hearing, moist oral mucosa,?No??scleral icterus,?No??sinus tenderness Neck: Supple, non-tender,?No??carotid bruits,?No??JVD,?No??lymphadenopathy Lungs:??Clear to auscultation?? Respiration:??Non-Labored Heart:?Normal? rate,?Regular??rhythm,?No??murmur,?No??gallop,?No??edema Breast:?No??lumps,?No??bumps,?No??scars,?Normal? nipples Abdomen: Soft, non-tender, non-distended,?Normal? bowel sounds,?No??masses Musculoskeletal:?Normal? range of motion and strength,?No??tenderness,?No??swelling Skin: Skin is warm, dry and pink,?No??rashes,?No??lesions Neurologic: Awake, alert and oriented X4, CN II-XII intact Psychiatric: Cooperative, appropriate mood and affect ?? On the physical exam, the patient walks??reasonably well with no limp.?? She has full range of motion of her right hip which is not painful. ??She has a slight tenderness on palpation where??the implant is,??this patient is fairly thin.?? Otherwise the rest of the physical exam of the right hip is unremarkable. ?? X-rays were done again today just to confirm that this??hip has healed??in essentially??anatomicposition. ??There is no avascular necrosis. ??There is very minimal osteoarthritic changes.?? Implants are in the same position with no signs of loosening??and/or movement. Assessment/Plan 1.??Peripheral neuropathy??G62.9 So this patient is coming to see me back because she is experiencing different??nerve??issues. ??She was wondering if it had anything to do with her right hip. ??Have reassured her that the right hip has healed nicely and I do not see any issues both radiologically and clinically.?? So the patient is reassured with these information.?? She is more than welcome to come and see me back again if needed. 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 Closed fracture of neck of femur Compression fracture of body of thoracic vertebra Conductive hearing loss, external ear Cystocele, midline Degenerative joint disease of shoulder region Delay when starting to pass urine Disorder of bone density and structure, unspecified Emphysema lung Epigastric pain External ear conductive hearing loss Extrapyramidal movements Fatigue Fibrocystic changes of both breasts Full thickness rotator cuff tear Gait disturbance Gastroesophageal reflux disease Gastroesophageal reflux disease Globus sensation Goiter Graves disease H/O: ear disorder History of kidney stone History of rectal bleeding Hyperlipidemia Hyperlipidemia Impacted cerumen Impacted cerumen of both ears Kidney stone Kidney stone Left rotator cuff syndrome Lower abdominal pain Mass of female genital structure Mass of female genital structure Midline cystocele Migraine Migraine without status migrainosus, not intractable Multiple nodules of lung Nausea Neck pain Nephrolithiasis Neuralgia Numbness of toes Osteochondropathy Osteoporosis Otalgia of left ear Other seborrheic keratosis Otitis externa Otomycosis Pathological fracture of vertebra Plantar wart of left foot Primary osteoporosis Pulmonary nodules Pyrosis Referred otalgia of left ear Restless legs syndrome Seborrheic keratosis Sialoadenitis of the submandibular gland Smoker Smoker Submandibular sialoadenitis Superficial mycosis, unspecified Thyroid disease Tobacco use Tobacco user von Willebrand's disease Historical No qualifying data Procedure/Surgical History ???Mammogram (04/13/2019)???Injection left shoulder, cortisone (01/05/2017)???Right Ureteroscopy and laser lithotripsy (11/08/2015)???Colonoscopic polypectomy???Hysterectomy.... subtotal abdominal , due to risk of cancer???Procedure???Fat graft stomach to neck???Tonsillectomy and adenoidectomy Medications !-Zofran ODT 4 mg oral tablet, disintegrating, 4 mg= 1 tab, Oral, every 8 hr, PRN, 1 refills [facility] [place] Pres[place] Advil 200 mg oral tablet, 400 mg= 2 tab, Oral, Daily ALPRAZolam 0.5 mg oral tablet, See Instructions, 2 refills famotidine 20 mg oral tablet methocarbamol 750 mg oral tablet, 750 mg= 1 tab, Oral, every 4 hr, PRN ondansetron 4 mg oral tablet, disintegrating pantoprazole 40 mg oral delayed release tablet, 40 mg= 1 tab, Oral, Daily, 3 refills Pepcid 20 mg oral tablet, 20 mg= 1 tab, Oral, BID, 3 refills Tylenol 325 mg oral tablet, 650 mg= [...] size cups and amount per day. 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 many years ago [...] mRNA-1273 vaccine 08/12/2020 Recorded Electronically Signed on 02/08/23 09:14 AM Jh Martino MD Patient Care team information Care Team Personnel Name: Ken Murdock DO Position: Physician Member Role: Primary Care Physician Address: Address: [address] [place] [id number] [place] Care Team Related Persons Name: ZANE BANKS Address: Home
--- OUTSIDE RECORDS SUMMARY | 2023-08-16 16:26 | XMS_ITS | Continuity of Care Document ---
Author Name Unknown Organization [facility] Ambulatory Clinics Address [address] [place] [address] Care Team Providers Care Antisqueak Chalker Name Role Phone Ken Murdock DO Primary Care Physician Encounter [facility] FIN NBR [id number] Date(s): 12/22/22 - 12/22/22 [facility] Ambulatory Clinics [address], [place] [address] Encounter Diagnosis MGUS (monoclonal gammopathy of unknown significance)(Discharge Diagnosis) - 12/22/22 Epigastric pain(Discharge Diagnosis) - 12/22/22 Lower abdominal pain(Discharge Diagnosis) - 12/22/22 Nausea(Discharge Diagnosis) - 12/22/22 Pyrosis(Discharge Diagnosis) - 12/22/22 Globus sensation(Discharge Diagnosis) - 12/22/22 Bloating(Discharge Diagnosis) - 12/22/22 Change in bowel habits(Discharge Diagnosis) - 12/22/22 Discharge Disposition: Home or Self Care Attending Physician: Anastasiia Garcias APRN Referring Physician: Ken Murdock DO Allergies, Adverse [...] XR Bone Survey (Metastatic) 12/22/22 Functional Status 12/22/22 Other exposure to Infectious Disease Non e Immunizations Given and Recorded Vaccine Date Status Refusal Reason SARS-CoV-2 (COVID-19) mRNA-1273 vaccine 09/09/20 R ecorded SARS-CoV-2 (COVID-19) mRNA-1273 vaccine 08/12/20 R ecorded Medications !-Zofran ODT 4 mg oral tablet, disintegrating 4 mg = 1 tab, Oral, every 8 hr, PRN as needed for nausea/vomiting, # 30 tab, 1 Refill(s), Pharmacy:[facility] Start Date: 12/22/22 Stop Date: 02/20/23 [...] anxiety, # 30 tab, 2 Refill(s), Pharmacy: [facility] Start Date: 09/21/22 Status: Ordered methocarbamol 750 mg oral tablet 750 mg = 1 tab, Oral, every 4 hr, PRN as needed for pain, PRN, # 60 tab, 0 Refill(s) Start Date: 11/16/22 Status: Ordered pantoprazole 40 mg oral delayed release tablet 40 mg = 1 tab, Oral, Daily, 30 minutes before evening meal, # 30 tab, 3 Refill(s), Pharmacy: [facility] #[id number] Start Date: 12/22/22 Stop Date: 04/21/23 Status: Ordered Tylenol 325 mg oral tablet 650 mg = 2 tab, Oral, Daily, # 60 tab, 0 Refill(s) Start Date: 11/16/22 Stop Date: 01/07/23 Status: Ordered Vitamin D3 2000 intl units oral tablet 50 mcg = 1 tab, Oral, Daily, # 90 tab, 3 Refill(s), Pharmacy: [facility] Start Date: 09/02/22 Stop Date: 08/28/23 [...] Tonsillectomy and adenoidectomy 6 Completed 1CAT 2 [id number]... 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, right breast biopsy 6date unknown Vital Signs Most recent to oldest [Reference Range]: 1 Temperature Temporal Artery [36-38 Deg C ] 35.9 Deg C *LOW* (12/22/22 8:04 AM) Apical Heart Rate [60-100 bpm] 88 bpm (12/22/22 8:04 AM) Blood Pressure [90-140/60-90 mmHg] 128/7 4mmHg (12/22/22 8:04 AM) Weight 66.1 kg (12/22/22 8:04 AM) Weight Measured (lbs) 145.725 lb (12/22/22 8:04 AM) [place] Body Weight Calculated 66.2 kg (12/22/22 8:04 AM) Height 175.26 cm (12/22/22 8:04 AM) Height/Length Measured (inches) 69 inch (12/22/22 8:04 AM) BSA Measured 1.79 m2 (12/22/22 8:04 AM) Body Mass Index 21.52 kg/m2 (12/22/22 8:04 AM) Social History Social History Type Response Tobacco Current everyday tob acco user Tobacco Use:. 1/2 ppd depending on stress never over 1 pack per day. Sex Female Physician Outpatient Note * Anastasiia Garcias APRN W: PERFORM Event Display: Office Clinic Note Physician Authored Date: [id number] OMARI HAWKINS :1960 Age:62 years Sex:Female Visit Date:12/22/2022 Primary Care Physician: Ken Murdock DO Chief Complaint epigastric pain History of Present Illness Patient is a 62-year-old??female here today at the request of Dr. Murdock for epigastric pain.?? This is an initial consult.?? She reports in the last??1 to 2 months she has had epigastric and lowerabdominal pain.?? She has nausea that is intermittent and occurs??daily. ??Complains of increasing gas,??belching,??and bloating.?? She has gained weight. ??Her appetite is diminished.?? Her stools tripathi ve changed and Lydia form 1-6.?? Has several small stools??2-3 times per day. ??Denies any diarrhea or??or melena.?? Has pyrosis that wakes her up at night.?? Has tried omeprazole in the past that was not effective. ??Uses Zantac as needed.?? Complains of dyspepsia and regurgitation.?? Has globussensation. ??Denies dysphagia. ?? Uses NSAIDs??1 to 2 days??at a time??and then may not for another 4 to 6 weeks. ?? Denies substance use. ?? 03/22/2017 patient had a colonoscopy with 2 hyperplastic polyps,??a tubular adenoma and 1??tubulovillous adenoma. ?? Denies any family history of gastrointestinal cancers, celiac disease,??or inflammatory bowel disease. Review of Systems General: Denies malaise.?Complains of fatigue. HEENT: Denies dysphagia. ??Complains of globus sensation. Respiratory: Denies shortness of breath, cough, or wheeze. Cardiovascular: Denies chest pain, palpitations, lightheadedness, dizziness, syncope or peripheral edema. ?? Abdomen:??Complains of epigastric and lower abdominal pain. ??Complains of nausea. ??Denies vomiting,??melena or hematochezia. ??She has gained weight. ??Appetite is diminished.?? Has pyrosis and dyspepsia. ??Complains of bloating. ??Denies any vomiting.?? Complains of changes in bowel habits. Skin: Denies rashes or lesions. Neurological: Denies any problems with gait or balance. ?? Physical Exam Vitals & Measurements T:??35.9?C ??(Temporal Artery)?? HR:??88??(Apical)?? BP:??128/74?? SpO2:??99%?? HT:??175.26??cm?? WT:??66.1??kg?? BMI:??21.52?? BSA:??1.79?? General: Well-nourished well-developed??female??in no acute distress. HEENT: Head is normocephalic, trachea midline, and no cervical lymphadenopathy. Respiratory: Respirations are even and unlabored. ??Lungs are clear to auscultation. Cardiovascular: Regular rate and rhythm with S1 and S2. Abdomen: Positive bowel sounds x4 quadrants, no masses, no guarding, no tenderness. ??No hepatosplenomegaly. ??Abdomen is soft. Skin: Warm, dry, and pink. Neurological: Alert and oriented x3, speech is clear and gait is steady. Psychological: Pleasant, calm and cooperative. Assessment/Plan 1.??Epigastric pain??R10.13 Start pantoprazole 40 mg 30??minutes before evening meal. ??We discussed reflux triggering foods and beverages to avoid, to avoid eating 3 hours before bedtime and eat small frequent meals.?? Schedule EGD to assess for mucosal injury, inflammation, H. pylori infection??and celiac disease. Ordered: Follow-up Appointment Request [facility], *Est. 01/05/23 +/- 2 days, Future Order, after EGD and colonoscopy, In Approximately, [facility] Gastroenterology Surgical Procedure Booking Request LTT[facility], 12/22/22 8:35:00 EDT, 02/25/23 10:00:00 EDT, n/pyrosis, change in BM, Epigastric pain Lower abdominal pain Nausea Pyrosis Globus sensation, Outpatient, EGD & Colonoscopy, Primary Procedure, 45, OTTONIEL, 22, Brock RODRIGUEZ, Milad, Consent to read:... ?? 2.??Lower abdominal pain??R10.30 Recommend high-fiber diet. ??Use MiraLAX 17 g in ounces of fluid on a daily basis as needed for constipation. Ordered: Follow-up Appointment Request LT_[facility], *Est. 01/05/23 +/- 2 days, Future Order, after EGD and colonoscopy, In Approximately, [facility] Gastroenterology Surgical Procedure Booking Request [facility]TT[facility], 12/22/22 8:35:00 EDT, 02/25/23 10:00:00 EDT, n/pyrosis, change in BM, Epigastric pain Lower abdominal pain Nausea Pyrosis Globus sensation, Outpatient, EGD & Colonoscopy, Primary Procedure, 45, OTTONIEL, Sho, Brock RODRIGUEZ, Milad, Consent to read:... ?? 3.??Nausea??R11.0 As above. ??Zofran??4 mg??every 8 hours??as needed ordered. Ordered: Follow-up Appointment Request [facility]_[place], *Est. 01/05/23 +/- 2 days, Future Order, after EGD and colonoscopy, In Approximately, [facility] Gastroenterology Surgical Procedure Booking Request LTTL, 12/22/22 8:35:00 EDT, 02/25/23 10:00:00 EDT, n/pyrosis, change in BM, Epigastric pain Lower abdominal pain Nausea Pyrosis Globus sensation, Outpatient, EGD & Colonoscopy, Primary Procedure, 45, OTTONIEL, 22, Milad Gutiérrez MD, Consent to read:... ?? 4.??Pyrosis??R12 As above. Ordered: Follow-up Appointment Request LT_[place], *Est. 01/05/23 +/- 2 days, Future Order, after EGD and colonoscopy, In [facility], [facility] Gastroenterology Surgical Procedure Booking Request LT, 12/22/22 8:35:00 EDT, 02/25/23 10:00:00 EDT, n/pyrosis, change in BM, Epigastric pain Lower abdominal pain Nausea Pyrosis Globus sensation, Outpatient, EGD & Colonoscopy, Primary Procedure, 45, OTTONIEL, 22, Brock RODRIGUEZ, Milad, Consent to read:... ?? 5.??Globus sensation??R09.89 As above. Ordered: Follow-up Appointment Request [facility], *Est. 01/05/23 +/- 2 days, Future Order, after EGD and colonoscopy, In Approximately, [facility] Gastroenterology Surgical Procedure Booking Request LT, 12/22/22 8:35:00 EDT, 02/25/23 10:00:00 EDT, n/pyrosis, change in BM, Epigastric pain Lower abdominal pain Nausea Pyrosis Globus sensation, Outpatient, EGD & Colonoscopy, Primary Procedure, 45, OTTONIEL, 22, Milad Gutiérrez MD, Consent to read:... ?? 6.??Bloating??R14.0 As above. Ordered: Follow-up Appointment Request [facility], *Est. 01/05/23 +/- 2 days, Future Order, after EGD and colonoscopy, In Approximately, [facility] Gastroenterology ?? 7.??Change in bowel habits??R19.4 Colonoscopy to assess for colitis or neoplasm.?? Recommend high-fiber diet as mentioned above. ?? MGUS (monoclonal gammopathy of unknown significance)??D47.2 ?? Orders: !-Zofran ODT 4 mg oral tablet, disintegrating, 4 mg = 1 tab, Oral, every 8 hr, PRN as needed for nausea/vomiting, # 30 tab, 1 Refill(s), Pharmacy: [facility] pantoprazole 40 mg oral delayed release tablet, 40 mg = 1 tab, Oral, Daily, 30 minutes before evening meal, # 30 tab, 3 Refill(s), Pharmacy: [facility] Voice recognition software utilized which may result in minor evs tech error. Problem List/Past Medical History Ongoing Abnormal leg movement Acute right-sided low back pain with sciatica Acute swimmer's ear of both sides Anxiety disorder Bloating Breast mass, right Centrilobular emphysema Cervical pain Cervicalgia Change in bowel habits Chest pain Cholesteatoma of left external auditory canal Compression fracture of body of thoracic vertebra Conductive hearing loss, external ear Cystocele, midline Disorder of bone density and structure, unspecified Emphysema lung Epigastric pain Fatigue Fibrocystic changes of both breasts Gait disturbance Gastroesophageal reflux disease Globus sensation Goiter Graves disease History of kidney stone History of rectal bleeding Hyperlipidemia Impacted cerumen of both ears Kidney stone Lower abdominal pain Mass of female genital structure Migraine without status migrainosus, not intractable Nausea Nephrolithiasis Neuralgia Numbness of toes Osteoporosis Other seborrheic keratosis Pulmonary nodules Pyrosis Referred otalgia of left ear Restless legs syndrome Seborrheic keratosis Smoker Submandibular sialoadenitis Superficial mycosis, unspecified Thyroid disease Tobacco use von Willebrand's disease Historical No qualifying data [...] mg= 1 tab, Oral, Daily, 3 refills Tylenol 325 mg oral tablet, [...] size cups and amount per day. 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 many years ago [...] mRNA-1273 vaccine 08/12/2020 Recorded Electronically Signed on 12/22/22 08:42 AM Anastasiia Garcias APRN Electronically Signed on 12/23/22 07:24 AM Milad Gutiérrez MD Patient Care team information Care Team Personnel Name: Ken Murdock DO Position: Physician Member Role: Primary Care Physician Address: Address: [address] [place] [phone] Care Team Related Persons Name: ZANE BANKS Address: Home
--- OUTSIDE RECORDS SUMMARY | 2023-08-16 16:26 | XMS_ITS | Continuity of Care Document ---
Author Name Unknown Organization [facility] Ambulatory Clinics Address [address] [place] [address] Care Team Providers Care Food Preparation Supervisor Name Role Phone Ken Murdock DO Primary Care Physician Encounter [facility] NBR [id number] Date(s): 06/30/23 - 06/30/23 [facility] Ambulatory Clinics [address] [place], [place] [address] Discharge Disposition: Home Allergies, Adverse Reactions, Alerts Substance Reaction Severity Status ciprofloxacin ? Nausea Unknown Active azithromycin 1 Rash Unknown Active penicillin V potassium Unknown Unknown Activ e varenicline Unknown Unknown Active Chantix Unknown Active traMADol Unknown Unknown Active diazePAM very shakey Unknown Active Tylox very itchy Unknown Active Vicodin Itchy Unknown Severe Active Toradol itchy, rash on hands and feet Unknown Active 1May have had sun rash; [...] every 8 hr, PRN NEEDED, Please call [phone] to make a 6 month follow up for 08/2023, # 90 tab, 0 Refill(s), Pharmacy: [facility] #93, 175.26, cm, 02/22/23 17:26:00 EDT, Height/Length Dosing, 63.5, kg, 02/22/23 17:26:00 EDT, Weight Dosing Start Date: 05/14/23 Status: Ordered ALPRAZolam 0.5 mg oral tablet See Instructions, May take 1 tab up to 2 times daily as needed for anxiety, # 30 tab, 2 Refill(s), Pharmacy: [facility] Start Date: 09/21/22 Status: Ordered methocarbamol 750 mg oral tablet 750 mg = 1 tab, Oral, every 4 hr, PRN as needed for pain, PRN, # 30 tab, 1 Refill(s), [facility], 175.26, cm, 05/31/23 10:13:00 EST, Height, 64.59, kg, 05/31/23 10:21:00 EST, Weight Dosing Start Date: 07/01/23 Status: Ordered pantoprazole 40 mg oral delayed release tablet 40 mg = 1 tab, Oral, Daily, 30 minutes before, # 30 tab, 11 Refill(s), Pharmacy: [facility], 175.26, cm, 02/22/23 17:26:00 EDT, Height/Length Dosing, 63.5, kg, 02/22/23 17:26:00 EDT, Weight Dosing Start Date: 04/12/23 Stop Date: 04/06/24 Status: Ordered Pepcid 20 mg oral tablet 20 mg = 1 tab, Oral, BID, PRN heartburn, # 60 tab, 11 Refill(s), Pharmacy: [facility], 175.26, cm, 02/22/23 17:26:00 EDT, Height/Length Dosing, 63.5, kg, 02/22/23 17:26:00 EDT, Weight Dosing Start Date: 04/12/23 Stop Date: 04/06/24 Status: Ordered Vitamin B12 1,000 mcg =, Oral, Daily, 0 Refill(s) Start Date: 03/22/23 Status: Ordered Vitamin D3 2000 intl units oral tablet 50 mcg = 1 tab, Oral, Daily, # 90 tab, 3 Refill(s), Pharmacy: [facility] Start Date: 09/02/22 Stop Date: 08/28/23 Status: Ordered Wellbutrin XL 150 mg/24 hours oral tablet, extended release 150 mg = 1 tab, Oral, every 24 hr, # 30 tab, 11 Refill(s), Pharmacy: [facility], 175.26, cm, 02/22/23 17:26:00 EDT, [...] 1auto-populated from documented surgical case 2CAT 2 [id number]... 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 1/2 ppd depending on stress never over 1 pack per day. Sex Female Patient Care team information Care Team Personnel Name: Ken Murdock DO Position: Physician Member Role: Primary Care Physician Address: Address: [address] [place] [phone] [place] Care Team Related Persons Name: ZANE BANKS
--- OUTSIDE RECORDS SUMMARY | 2023-08-16 16:26 | XMS_ITS | Continuity of Care Document ---
Author Name Unknown Organization [facility] Ambulatory Clinics Address [address] [place] [address] Care Team Providers Care Cotton Dispatcher Name Role Phone Ken Murdock DO Primary Care Physician [phone] Encounter [facility] FIN NBR [id number] Date(s): 05/24/23 - 05/24/23 [facility] Ambulatory Clinics [address] [place], [place] [address] Discharge Disposition: Home Allergies, Adverse [...] every 8 hr, PRN NEEDED, Please call [phone] to make a 6 month follow up for 08/2023, # 90 tab, 0 Refill(s), Pharmacy: [facility], 175.26, cm, 02/22/23 17:26:00 EDT, Height/Length [...] # 90 tab, 3 Refill(s), Pharmacy: [facility] Start Date: 09/02/22 Stop Date: 08/28/23 Status: Ordered Wellbutrin XL 150 mg/24 hours oral tablet, extended release 150 mg = 1 tab, Oral, every 24 hr, # 30 tab, 11 Refill(s), [facility] [...] 1auto-populated from documented surgical case 2CAT 2 [id number]... 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 1/2 ppd depending on stress never over 1 pack per day. Sex Female Patient Care team information Care Team Personnel Name: Ken Murdock DO Position: Physician Member Role: Primary Care Physician Address: Address: [address] [place] [phone] [place] Care Team Related Persons Name: ZANE BANKS
--- OUTSIDE RECORDS SUMMARY | 2023-08-16 16:26 | XMS_ITS | Continuity of Care Document ---
Author Name Unknown Organization 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ulatory [facility] [address] [place], [place] [address] Encounter Diagnosis Gastroesophageal reflux disease(Discharge Diagnosis) - 03/05/23 Erosive gastropathy(Discharge Diagnosis) - 03/05/23 Adenomatous polyp of colon(Discharge Diagnosis) - 03/05/23 IBS (irritable bowel syndrome)(Discharge Diagnosis) - 03/05/23 Discharge Disposition: Home or Self Care Attending Physician: Anastasiia Garcias APRN Allergies, Adverse Reactions, Alerts Substance Reaction Severity [...] XR Bone Survey (Metastatic) 12/22/22 Functional Status 03/05/23 Other exposure to Infectious Disease Non e Immunizations Given and Recorded Vaccine Date Status Refusal Reason SARS-CoV-2 (COVID-19) mRNA-1273 vaccine 09/09/20 R ecorded SARS-CoV-2 (COVID-19) mRNA-1273 vaccine 08/12/20 R ecorded Medications !-Zofran ODT 4 mg oral tablet, disintegrating 4 mg = 1 tab, Oral, every 8 hr, PRN as needed for nausea/vomiting, # 30 tab, 1 Refill(s), Pharmacy:[facility] Start Date: 12/22/22 Stop Date: [...] 0 Refill(s) Start Date: 11/16/22 Status: Ordered omeprazole 40 mg oral delayed release capsule 40 mg = 1 cap, Oral, Daily, 30 minutes before evening meal, # 30 cap, 3 Refill(s), [facility], 175.26, cm, 02/22/23 17:26:00 EDT, Height/Length Dosing, 63.5, kg, 02/22/23 17:26:00 EDT, Weight Dosing Start Date: 03/05/23 Stop Date: 07/03/23 Status: Ordered Pepcid 20 mg oral tablet 20 mg = 1 tab, Oral, BID, PRN epigastric pain, # 60 tab, 3 Refill(s), Pharmacy: [facility] Start Date: 12/24/22 Stop Date: 04/23/23 Status: Ordered Super B Complex oral tablet 1 tab, Oral, Daily, # 30 tab, 0 Refill(s) Start Date: 02/22/23 Status: Ordered Tylenol 325 mg oral tablet 650 mg = 2 tab, Oral, Daily, # 60 tab, 0 Refill(s) Start Date: 11/16/22 Stop Date: 01/07/23 Status: Ordered Vitamin D3 2000 intl units oral tablet 50 mcg = 1 tab, Oral, Daily, # 90 tab, 3 Refill(s), Pharmacy: [facility] Start Date: 09/02/22 Stop Date: 08/28/23 [...] 1auto-populated from documented surgical case 2CAT 2 [id number]... 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, right breast biopsy 7date unknown Vital Signs Most recent to oldest [Reference Range]: 1 Temperature Temporal Artery [36-38 Deg C ] 35.9 Deg C *LOW* (03/05/23 10:26 AM) Apical Heart Rate [60-100 bpm] 91 bpm (03/05/23 10:26 AM) Blood Pressure [90-140/60-90 mmHg] 124/7 6mmHg (03/05/23 10:26 AM) Weight 63.96 kg (03/05/23 10:26 AM) Weight Measured (lbs) 141.007 lb (03/05/23 10:26 AM) [place] Body Weight Calculated 66.2 kg (03/05/23 10:26 AM) Height 175.26 cm (03/05/23 10:26 AM) Height/Length Measured (inches) 69 inch (03/05/23 10:26 AM) BSA Measured 1.76 m2 (03/05/23 10:26 AM) Body Mass Index 20.82 kg/m2 (03/05/23 10:26 AM) Social History Social History Type Response Tobacco Current everyday tob acco user Tobacco Use:. 1/2 ppd depending on stress never over 1 pack per day. Sex Female Physician Outpatient Note * Anastasiia Garcias APRN W: PERFORM Event Display: Office Clinic Note Physician Authored Date: [id number] OMARI HAWKINS :1960 Age:62 years Sex:Female Visit Date:03/05/2023 Primary Care Physician: Ken Murdock, DO Chief Complaint Follow-up EGD and colonoscopy History of Present Illness Patient is a 62-year-old??female here today at the request of Dr. Murdock for epigastric pain.?? She is an established patient here today for follow-up of EGD and colonoscopy.?? She reports in the last??1 to 2 months she has had epigastric and lower abdominal pain.?? She has nausea that is intermittent and occurs??daily. ??Complains of increasing gas,??belching,??and bloating.?? She has gained weight. ??Her appetite is diminished.?? Her stools have changed and Iron form 1-6.?? Has several small stools??2-3 times per day. ??Denies any diarrhea or??or melena.?? Has pyrosis that wakes her upat night.?? Has tried omeprazole in the past that was not effective. ??Uses Zantac as needed.?? Comp lains of dyspepsia and regurgitation.?? Has globus sensation. ??Denies dysphagia. ?? Admits to using NSAIDs frequently for migraines.?? She notices foods such as caffeine??and??chocolate worsen her symptoms.?? She does smoke cigarettes.?? She states she tried pantoprazole 40 mg everyevening and after 2??nights she noticed??throat and chest burning.?? She was advised by her pharmacist to stop taking the medication. ??She has been taking Pepcid 20 mg daily??since. ??She continues to have??epigastric pain??that she feels it is improving.?? All my God's people we stopped coming ?? Denies substance use. ?? 03/22/2017 patient had a colonoscopy with 2 hyperplastic polyps,??a tubular adenoma and 1??tubulovillous adenoma. ?? 02/25/2023 EGD showed a duodenal polyp??that was unremarkable. ??There is erosive gastropathy. ??No celiac disease, or H. pylori infection seen.?? No eosinophil esophagitis or Barlow's esophagus. ?? 02/25/2023 colonoscopy showed sigmoid diverticulosis and 3 polyps.?? 2 tubular adenomas and 1 was a hyperplastic polyp. ??Random colon biopsies without colitis.? Denies any family history of gastrointestinal cancers, celiac disease,??or inflammatory bowel disease. Review of Systems Pertinent positives and negatives are discussed in HPI. Physical Exam Vitals & Measurements T:??35.9?C ??(Temporal Artery)?? HR:??91??(Apical)?? BP:??124/76?? SpO2:??98%?? HT:??175.26??cm?? WT:??63.96??kg?? BMI:??20.82?? BSA:??1.76?? General: Well-nourished well-developed??female??in no acute distress. HEENT: [...] steady. Psychological: Pleasant, calm and cooperative. Assessment/Plan 1.??Gastroesophageal reflux disease??K21.9 Findings EGD with patient.?? Erosive gastropathy was seen. ??No eosinophil esophagitis, Barlow's esophagus,??celiac disease or H. pylori infection.?? She did not tolerate pantoprazole.?? Suggest omeprazole 40 mg 30 minutes before evening meal.?? Discussed the mechanism of action and benefit over??Pepcid. ??She can use Pepcid as needed 20 mg??twice daily. ??We discussed reflux triggering foods and beverages to avoid, to avoid eating 3 hours before bedtime and eat small frequent meals.?? GERD handout given to the patient. ??Smoking cessation also advised.?? Follow-up in 8 weeks. ??She is advised to call the meantime if she has any problems or concerns. 2.??Erosive gastropathy??K31.89 As above. ??Advised to avoid all NSAIDs. ??She is advised to speak to Dr. Murdock, her PCP in regards to??alternative migraine therapy??that she should not be using NSAIDs??with??known erosive gastropathy.?? She verbalized understanding. 3.??IBS (irritable bowel syndrome)??K58.9 Findings of colonoscopy were reviewed with the patient. ??She has sigmoid diverticulosis. ??Recommend a high-fiber diet.?? There was??2 tubular adenomas and 1 hyperplastic polyp. ??Recommended repeat??colonoscopy in 7 years.?? Random colon biopsies without colitis. ??Celiac disease has been ruled out with EGD.?? We discussed brain gut interaction.?? We discussed stress management. ??She is not interested in any medications at this time. ??Will continue to follow as needed. 4.??Adenomatous polyp of colon??D12.6 As above. Orders: Pepcid 20 mg oral tablet, 20 mg = 1 tab, Oral, BID, PRN epigastric pain, # 60 tab, 3 Refill(s), Pharmacy: [facility] #[facility] omeprazole 40 mg oral delayed release capsule, 40 mg = 1 cap, Oral, Daily, 30 minutes before evening meal, # 30 cap, 3 Refill(s), Pharmacy: [facility] #[facility], 175.26, cm, 02/22/23 17:26:00 EDT, Height/Length Dosing, 63.5, kg, 02/22/23 17:26:00 EDT, Weight Dosing Follow-up Appointment Request [facility], *Est. 05/05/23 +/- 14 days, Future Order, f/u erosive gastropathy, In Approximately, [facility] Gastroenterology Voice recognition software utilized which may result in minor chinese language professor error. Problem List/Past Medical History Ongoing Abnormal [...] 1 tab, Oral, every 4 hr, PRN omeprazole 40 mg oral delayed release capsule, 40 mg= 1 cap, Oral, Daily, 3 refills Pepcid 20 mg oral tablet, 20 mg= 1 tab, Oral, BID, PRN, 3 refills Super B Complex oral tablet, 1 tab, Oral, Daily Tylenol 325 mg oral tablet, 650 mg= [...] size cups and amount per day. 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 many years ago [...] mRNA-1273 vaccine 08/12/2020 Recorded Electronically Signed on 03/05/23 10:58 AM Anastasiia Garcias APRN Patient Care team information Care Team Personnel Name: Ken Murdock DO Position: Physician Member Role: Primary Care Physician Address: Address: [address] [place] [id number] Care Team Related Persons Name: ZANE BANKS Address: Home
--- OUTSIDE RECORDS SUMMARY | 2023-08-16 16:26 | XMS_ITS | Continuity of Care Document ---
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 Role Phone Ken Murdock DO Primary Care Physician Encounter [facility] NBR [id number] Date(s): 09/15/22 - 09/15/22 [facility] [address] [place] [address]- [place] Encounter Diagnosis Encounter for screening mammogram for malignant neoplasm of breast(Final) - Discharge Disposition: Home or Self Care Attending Physician: Ken Murdock DO Admitting Physician: Ken Murdock DO Referring Physician: Ken Murdock DO Assessment and Plan Future Scheduled Tests Radiology* MG Mammo Screening Bilateral 05/15/22 Medications ALPRAZolam 0.5 mg oral tablet See Instructions, May take 1 tab up to 2 times daily as needed for anxiety, # 30 tab, 2 Refill(s), Pharmacy: [facility] #[facility] Start Date: 06/08/22 Status: Ordered Vitamin D3 2000 intl units oral tablet 50 mcg = 1 tab, Oral, Daily, # 90 tab, 3 Refill(s), Pharmacy: [facility] #93 Start Date: 09/02/22 Stop Date: 08/28/23 Status: Ordered Results Radiology Reports * Exam Date Time Procedure Performing Provider Status 09/15/22 11:49 AM MG Mammo Screening Bilateral Micheline Oviedo; Camilla (Verified) Notes: (MG Mammo Screening Bilateral) Reason For Exam: screening MG Mammo Screening Bilateral EXAM DESCRIPTION: MG Mammo Screening Bilateral 09/15/2022 INDICATION: SCREENING COMPARISON: Prior studies most recently dated 04/23/2021 and 04/13/2019 BREAST DENSITY: The breasts are heterogeneously dense which may obscure small masses. FINDINGS: MLO and CC views were performed with digital breast tomosynthesis. Images were reviewed using computer aided detection. No asymmetry, architectural distortion or suspicious grouping of calcifications to suggest malignancy in either breast. Scattered benign-type calcifications bilaterally which were seen previously. ASSESSMENT: No mammographic evidence of malignancy. Benign findings. BI-RADS category 2. RECOMMENDATION: Screening mammography in 1 year JOB #: [id number] Final Signed by: Cy De Dios MD Signed (Electronic Signature): 09/15/2022 1:16 pm Social History Social History Type Response Sex Female MG Breast - bilateral Screening * Cy De Dios MD: VERIFY, VERIFY Event Display: Report EXAM DESCRIPTION: MG Mammo Screening Bilateral 09/15/2022 INDICATION: SCREENING COMPARISON: Prior studies most recently dated 04/23/2021 and 04/13/2019 BREAST DENSITY: The breasts are heterogeneously dense which may obscure small masses. FINDINGS: MLO and CC views were performed with digital breast tomosynthesis. Images were reviewed using computer aided detection. No asymmetry, architectural distortion or suspicious grouping of calcifications to suggest malignancy in either breast. Scattered benign-type calcifications bilaterally which were seen previously. ASSESSMENT: No mammographic evidence of malignancy. Benign findings. BI-RADS category 2. RECOMMENDATION: Screening mammography in 1 year JOB #: [id number] Final Signed by: Cy De Dios MD Signed (Electronic Signature): 09/15/2022 1:16 pm Patient Care team information Care Team Personnel Name: Ken Murdock DO Position: Physician Member Role: Primary Care Physician Address: Address: [address] [place] [phone] [place] Care Team Related Persons Name: ZANE BAJWA Address: Home
--- OUTSIDE RECORDS SUMMARY | 2023-08-16 16:26 | XMS_ITS | Continuity of Care Document ---
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 Name Role Phone Ken Murdock DO Primary Care Physician [phone] Encounter [facility] NBR [id number] Date(s): 05/31/23 - 05/31/23 [facility] Ambulatory Clin[facility] [address] [place], [place] [address] Encounter Diagnosis Neuropathy associated with MGUS(Discharge Diagnosis) - 05/31/23 Polyneuropathy in diseases classified elsewhere(Discharge Diagnosis) - 05/31/23 Discharge Disposition: Home or Self Care Attending [...] every 8 hr, PRN NEEDED, Please call [phone] to make a 6 month follow up for 08/2023, # 90 tab, 0 Refill(s), Pharmacy: [facility] #93, 175.26, cm, 02/22/23 17:26:00 EDT, Height/Length Dosing, 63.5, kg, 02/22/23 17:26:00 EDT, Weight Dosing Start Date: 05/14/23 Status: Ordered ALPRAZolam 0.5 mg oral tablet See Instructions, May take 1 tab up to 2 times daily as needed for anxiety, # 30 tab, 2 Refill(s), Pharmacy: [facility] #93 Start Date: 09/21/22 Status: Ordered methocarbamol 750 mg oral tablet 750 mg = 1 tab, Oral, every 4 hr, PRN as needed for pain, PRN, # 60 tab, 0 Refill(s) Start Date: 11/16/22 Status: Ordered pantoprazole 40 mg oral delayed release tablet 40 mg = 1 tab, Oral, Daily, 30 minutes before, # 30 tab, 11 Refill(s), Pharmacy: [facility] #93, 175.26, cm, 02/22/23 17:26:00 EDT, Height/Length Dosing, 63.5, kg, 02/22/23 17:26:00 EDT, Weight Dosing Start Date: 04/12/23 Stop Date: 04/06/24 Status: Ordered Pepcid 20 mg oral tablet 20 mg = 1 tab, Oral, BID, PRN heartburn, # 60 tab, 11 Refill(s), Pharmacy: [facility] #93, 175.26, cm, 02/22/23 17:26:00 EDT, Height/Length Dosing, 63.5, kg, 02/22/23 17:26:00 EDT, Weight Dosing Start Date: 04/12/23 Stop Date: 04/06/24 Status: Ordered Vitamin B12 1,000 mcg =, Oral, Daily, 0 Refill(s) Start Date: 03/22/23 Status: Ordered Vitamin D3 2000 intl units oral tablet 50 mcg = 1 tab, Oral, Daily, # 90 tab, 3 Refill(s), Pharmacy: [facility] #[facility] Start Date: 09/02/22 Stop Date: 08/28/23 Status: Ordered Wellbutrin XL 150 mg/24 hours oral tablet, extended release 150 mg = 1 tab, Oral, every 24 hr, # 30 tab, 11 Refill(s), Pharmacy: [facility] #[facility], 175.26, cm, 02/22/23 17:26:00 EDT, Height/Length [...] 1auto-populated from documented surgical case 2CAT 2 [id number]... 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, right breast biopsy 7date unknown Vital Signs Most recent to oldest [Reference Range]: 1 Peripheral Pulse Rate [60-100 bpm] 91 bp m (05/31/23 10:13 AM) Blood Pressure [90-140/60-90 mmHg] 112/7 3mmHg (05/31/23 10:13 AM) Mean Arterial Pressure, Cuff [65-140 mmH g] 86 mmHg (05/31/23 10:13 AM) Weight 64.59 kg (05/31/23 10:13 AM) Weight Measured (lbs) 142.396 lb (05/31/23 10:13 AM) Weight Dosing 64.590 kg (05/31/23 10:13 AM) [facility] Body Weight Calculated 66.2 kg (05/31/23 10:13 AM) Height 175.26 cm (05/31/23 10:13 AM) Height/Length Measured (inches) 69 inch (05/31/23 10:13 AM) BSA Measured 1.77 m2 (05/31/23 10:13 AM) Body Mass Index 21.03 kg/m2 (05/31/23 10:13 AM) Social History Social History Type Response Tobacco Current everyday tob acco user Tobacco Use:. 1/2 ppd depending on stress never over 1 pack per day. Sex Female Physician Outpatient Note * Kam Nye MD: PERFORM, MODIFY Event Display: Office Clinic Note Physician Authored Date: [id number] OMARI HAWKINS :1960 Age:62 years Sex:Female Visit Date:05/31/2023 Primary Care Physician: Ken Murdock DO Chief Complaint Pt comes today for a 6 month follow up. She notes her balance is still a little off, still has neuropathy in feet is intermittent. She notes vision is more blurry, last eye appt was a few weeks ago. History of Present Illness May ?? This very pleasant lady comes for follow-up evaluation. ??I had last seen her in February 2023. ??Nerve conduction studies were normal.?? She has MGUS.?? I thought that she had small fiber neuropathy.?? She has IgM lambda.?? We did a bone survey and there is no evidence of any metastatic disease.?? She is complaining of some blurred vision. ??She has proptosis. ??I am worried that she might be having??thyroid ophthalmopathy.?? She tells me that Dr. Murdock has ordered TSH and thyroid testing.?? If??that is elevated she may be having thyroid ophthalmopathy. ? We will repeat her labs for serum protein electrophoresis and serum immunofixation.?? I offered her a referral for hematology for MGUS but she wants to wait. ??And that is reasonable.?? If everything goes well I would like to see her in 1 year. Review of Systems ?? The patient has no additional neurologic, psychiatric, head, ears, eyes, nose, throat, pulmonary, cardiovascular, gastrointestinal, musculoskeletal, skin, endocrine, renal, immunological, allergic, lymphoid, rheumatologic??and hematological symptoms other than those noted above Physical Exam Vitals & Measurements HR:??91??(Peripheral)?? BP:??112/73?? HT:??175.26??cm?? WT:??64.59??kg?? BMI:??21.03?? BSA:??1.77?? She is pleasant awake alert oriented. ??Speech and language are normal. ??There is proptosis.?? Shehas a slightly wide-based gait. 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 This very pleasant lady comes for follow-up evaluation. ??I had last seen her in February 2023. ??Nerve conduction studies were normal.?? She has MGUS.?? I thought that she had small fiber neuropathy.?? She has IgM lambda.?? We did a bone survey and there is no evidence of any metastatic disease.?? She is complaining of some blurred vision. ??She has proptosis. ??I am worried that she might be having??thyroid ophthalmopathy.?? She tells me that Dr. Murdock has ordered TSH and thyroid testing.?? If??that is elevated she may be having thyroid ophthalmopathy. ? We will repeat her labs for serum protein electrophoresis and serum immunofixation.?? I offered her a referral for hematology for MGUS but she wants to wait. ??And that is reasonable.?? If everything goes well I would like to see her in 1 year. ?? REVIEW OF PRIOR RECORDS 03/01/2023 ?? 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 This very pleasant lady [...] will see her in 6 months ? She has had thyroid ablation in the past ?? 12/12/2022 ?Peripheral neuropathy??G62.9 ?November I ??had seen the patient on??Nov 24 2022.?? The patient??had presented with symptoms of peripheral neuropathy. ??Neurological exam at shown??stocking sensory deficit. ??I felt that she had small fiberneuropathy. I had ordered some additional lab work. ?Her B12 was somewhat borderline at 336. ??Folate [...] understanding. ??All questions were answered. ??Thank you ?my note of 11/24/2022 ?Small fiber neuropathy??G62.9 ??Appreciate [...] EMG. ?? Follow-up in 6 months. ??[1] ?PLAN: ?? may ?? May ?? This very pleasant lady comes for follow-up evaluation. ??I had last seen her in February 2023. ??Nerve conduction studies were normal.?? She has MGUS.?? I thought that she had small fiber neuropathy.?? She has IgM lambda.?? We did a bone survey and there is no evidence of any metastatic disease.?? She is complaining of some blurred vision. ??She has proptosis. ??I am worried that she might be having??thyroid ophthalmopathy.?? She tells me that Dr. Murdock has ordered TSH and thyroid testing.?? If??that is elevated she may be having thyroid ophthalmopathy. ?? She has had thyroid ablation in the past We will repeat her labs for serum protein electrophoresis and serum immunofixation.?? I offered shari referral for hematology for MGUS but she wants to wait. ??And that is reasonable.?? If everythinggoes well I would like to see her in 1 year. Polyneuropathy in diseases classified elsewhere??G63 Problem List/Past Medical History Ongoing Abnormal leg [...] graft stomach to neck???Tonsillectomy and adenoidectomy Medications acetaminophen 500 mg oral tablet, 2 tab, Oral, every 8 hr, PRN ALPRAZolam 0.5 mg oral tablet, See Instructions, 2 refills methocarbamol 750 mg oral tablet, 750 mg= 1 tab, Oral, every 4 hr, PRN pantoprazole 40 mg oral delayed release tablet, 40 mg= 1 tab, Oral, Daily, 11 refills Pepcid 20 mg oral tablet, 20 mg= 1 tab, Oral, BID, PRN, 11 refills Vitamin B12, 1000 mcg, Oral, Daily Vitamin [...] size cups and amount per day. 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 many years ago [...] ( both previsit, during and post visit) was??43 minutes spent discussing diagnosis, prognosis, work- up [...] comments. ?? This document was prepared using [employer]'s voice recognition software.Please excuse any errors.?? Electronically Signed on 05/31/23 10:37 AM Kam Nye MD Patient Care team information Care Team Personnel Name: Ken Murdock DO Position: Physician Member Role: Primary Care Physician Address: Address: [address] [place] [phone] [place] Care Team Related Persons Name: ZANE BANKS
--- OUTSIDE RECORDS SUMMARY | 2023-08-16 16:26 | XMS_ITS | Continuity of Care Document ---
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 Name Role Phone Ken Murdock DO Primary Care Physician Encounter [facility] [id number] Date(s): 02/16/23 - 02/16/23 [facility] Amb[facility] [address] [place] [address]- Encounter Diagnosis Sinusitis, acute(Discharge Diagnosis) - 02/16/23 Cough(Discharge Diagnosis) - 02/16/23 Tobacco user(Discharge Diagnosis) - 02/16/23 Acute sinusitis, unspecified(Final) - Cough, unspecified(Final) - Tobacco use(Final) - Discharge Disposition: Home or Self Care Attending Physician: Chelly Colmenares MD Allergies, Adverse Reactions, Alerts Substance Reaction [...] XR Bone Survey (Metastatic) 12/22/22 Functional Status 02/16/23 Other exposure to Infectious Disease Non e [...] Date: 12/24/22 Stop Date: 04/23/23 Status: Ordered Tessalon Perles 100 mg oral capsule 200 mg = 2 cap, Oral, TID, PRN as needed for cough, # 30 cap, 0 Refill(s), Pharmacy: [id number] Start Date: 02/16/23 Status: Ordered Tylenol 325 mg oral tablet 650 mg = 2 tab, Oral, Daily, # 60 tab, 0 Refill(s) Start Date: 11/16/22 Stop Date: 01/07/23 Status: Ordered Vitamin D3 2000 intl units oral tablet 50 mcg = 1 tab, Oral, Daily, # 90 tab, 3 Refill(s), Pharmacy: [id number] Start Date: 09/02/22 Stop Date: 08/28/23 Status: Ordered Zithromax Z-Philipp 250 mg oral tablet 1 packets, Oral, Daily, Take 2 tablets on day 1 and 1 tablet days 2 through 5 with a quantity of 6., # 6 tab, 0 Refill(s), Pharmacy: [facility] Start Date: 02/16/23 Stop Date: 02/21/23 Status: Ordered ZyrTEC 10 mg oral tablet [...] rectal bleeding Confirmed Active Hyperlipidemia Confirmed Active Kidney stone Confirmed Active Nephrolithiasis [...] Tonsillectomy and adenoidectomy 6 Completed 1CAT 2 [id number]... 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 1/2 ppd depending on stress never over 1 pack per day. Sex Female Hospital Discharge Instructions Patient Education 02/16/2023 12:37:19 Sinus Infection, Adult, Qfmr-hx-Opuq Sinus Infection, Adult A sinus infection is soreness and swelling (inflammation) of your sinuses. Sinuses are hollow spaces in the bones around your face. They are located: ??? Around your eyes. ??? In the middle of your forehead. ??? Behind your nose. ??? In your cheekbones. Your sinuses and nasal passages are lined with a fluid called mucus. Mucus drains out of your sinuses. Swelling can trap mucus in your sinuses. This lets germs (bacteria, virus, or fungus) grow, which leads to infection. Most of the time, this condition is caused by a virus. What are the causes? Allergies. ??? Asthma. ??? Germs. ??? Things that block your nose or sinuses. ??? Growths in the nose (nasal polyps). ??? Chemicals or irritants in the air. ??? A fungus. This is rare. What increases the risk? Having a weak body defense system (immune system). ??? Doing a lot of swimming or diving. ??? Using nasal sprays too much. ??? Smoking. What are the signs or symptoms? The main symptoms of this condition are pain and a feeling of pressure around the sinuses. Other symptoms include: ??? Stuffy nose (congestion). This may make it hard to breathe through your nose. ??? Runny nose (drainage). ??? Soreness, swelling, and warmth in the sinuses. ??? A cough that may get worse at night. ??? Being unable to smell and taste. ??? Mucus that collects in the throat or the back of the nose (postnasal drip). This may cause a sore throat or bad breath. ??? Being very tired (fatigued). ??? A fever. How is this diagnosed? Your symptoms. ??? Your medical history. ??? A physical exam. ??? Tests to find out if your condition is short-term (acute) or long-term (chronic). Your doctor may: ??? Check your nose for growths (polyps). ??? Check your sinuses using a tool that has a light on one end (endoscope). ??? Check for allergies or germs. ??? Do imaging tests, such as an MRI or CT scan. How is this treated? Treatment for this condition depends on the cause and whether it is short-term or long-term. ??? If caused by a virus, your symptoms should go away on their own within 10 days. You may be given medicines to relieve symptoms. They include: ??? Medicines that shrink swollen tissue in the nose. ??? A spray that treats swelling of the nostrils. ??? Rinses that help get rid of thick mucus in your nose (nasal saline washes). ??? Medicines that treat allergies (antihistamines). ??? Bodz-feg-dkvcviv pain relievers. ??? If caused by bacteria, your doctor may wait to see if you will get better without treatment. You may be given antibiotic medicine if you have: ??? A very bad infection. ??? A weak body defense system. ??? If caused by growths in the nose, surgery may be needed. Follow these instructions at home: Medicines ??? Take, use, or apply xklw-awj-geufzjc and prescription medicines only as told by your doctor. These may include nasal sprays. ??? If you were prescribed an antibiotic medicine, take it as told by your doctor. Do not stop taking it even if you start to feel better. Hydrate and humidify ??? Drink enough water to keep your pee (urine) pale yellow. ??? Use a cool mist humidifier to keep the humidity level in your home above 50%. ??? Breathe in steam for 10???15 minutes, 3???4 times a day, or as told by your doctor. You can do this in the bathroom while a hot shower is running. ??? Try not to spend time in cool or dry air. Rest ??? Rest as much as you can. ??? Sleep with your head raised (elevated). ??? Make sure you get enough sleep each night. General instructions ??? Put a warm, moist washcloth on your face 3???4 times a day, or as often as told by your doctor. ??? Use nasal saline washes as often as told by your doctor. ??? Wash your hands often with soap and water. If you cannot use soap and water, use hand dieing out machine operator. ??? Do not smoke. Avoid being around people who are smoking (secondhand smoke). ??? Keep all follow-up visits. Contact a doctor if: ??? You have a fever. ??? Your symptoms get worse. ??? Your symptoms do not get better within 10 days. Get help right away if: ??? You have a very bad headache. ??? You cannot stop vomiting. ??? You have very bad pain or swelling around your face or eyes. ??? You have trouble seeing. ??? You feel confused. ??? Your neck is stiff. ??? You have trouble breathing. These symptoms may be an emergency. Get help right away. Call 911. ??? Do not wait to see if the symptoms will go away. ??? Do not drive yourself to the hospital. Summary ??? A sinus infection is swelling of your sinuses. Sinuses are hollow spaces in the bones around your face. ??? This condition is caused by tissues in your nose that become inflamed or swollen. This traps germs. These can lead to infection. ??? If you were prescribed an antibiotic medicine, take it as told by your doctor. Do not stop taking it even if you start to feel better. ??? Keep all follow-up visits. This information is not intended to replace advice given to you by your health care provider. Make sure you discuss any questions you have with your health care provider. Document Revised: 06/16/2022 Document Reviewed: 06/16/2022 [email or web address] Patient Education ?? 2022 [employer]. Physician Outpatient Note * Chelly Colmenares MD: PERFORM Event Display: Office Clinic Note Physician Authored Date: [id number] OMARI HAWKINS :1960 Age:62 years Sex:Female Visit Date:02/16/2023 Primary Care Physician: Ken Murdock DO Chief Complaint Acid reflux issues and has been taking Famotidine. Sometimes feels Short of breath, pressure, burning in esphoagus. No fever, has stuffiness, coughing causes headache, sinuses ache. Muscus feels likeits stuck in lungs. Mucinex not helping Additional Information Uses [facility] in . History of Present Illness Here with c/o sinus pressure and cough for the last 3-4 days.?? Feels fullness in maxillary sinuses.?? Cough is somewhat productive of grayish-green sputum.?? No SOB or wheezing. Taking mucinex and OTC cough med without much improvement.?? No fevers; some fatigue.?? Some CALDERON, worse when bending.?? Not sure if cough may be also be from GERD.?? Has not been taking protonix due to concern about her lucia nasim; is taking famotidine BID.?Has GI workup scheduled for 02/25/2023.? Has not been taking zyrtec in the last few months.?? Drinking fluids OK.?? Review of Systems Const:??no??fevers,??no??significant weight change, some fatigue HEENT:?? + sinus pressure, mild ST CV:??no??chest pain,??no??palpitations Pulm:??no??shortness of breath,??+??cough with productive sputum GI:??no??abdominal pain,??no??bowel changes, some GERD sx Physical Exam Vitals & Measurements T:??36.4?C ??(Tympanic)?? HR:??84??(Peripheral)?? BP:??102/62?? SpO2:??96%?? WT:??64.5??kg?? General:??Alert,??No Acute Distress. Eyes: conjunctiva??Clear HENT:??Normocephalic??, tympanic membranes??Normal, ear canal??Normal, nares??Boggy, pharynx??Clear, with some PND, frontal sinus??Non-Tender, maxillary sinus??Bilateral Tenderness. Neck:??Positivemildly??tender??anterior cervical adenopathy,??Negative??posterior cervical adenopathy. Cardiovascular:??Regular??rate and rhythm,??Normal??peripheral perfusion. Respiratory: Lungs??generally Clear to Auscultation, with a few early exp wheezes, respirations??Non-Labored. Skin:?? No rashes Assessment/Plan 1.??Sinusitis, acute??J01.90 Likely due to her current sx of sinus pressure and pain with forward movement.?? Does have tendencyfor this, ge with h/o allergies and tobacco use.?? Will order Zpak (she has previously used this without problems -- may have had a sun-rash while on this in past and was marked as allergy)?? She will monitor for any side effects.?? Restart zyrtec and start regular sinus rinses.?? If not better in7-10 days, consider steroids vs imaging. 2.??Cough??R05.9 Likely from PND; may be worsened by GERD.?? Try tessalon PRN; push fluids, would take PPI for shortperiod to see if helpful.?? She would like to possibly resume wellbutrin again for anxiety and smoking cessation -- will discuss with Dr. Milner next visit. ?? 3.??Tobacco user??Z72.0 Smoking up to 1 PPD; need to try decreasing as much as possible.?? Consider resuming wellbutrin after GI workup is completed. ?? Orders: Zithromax Z-Philipp 250 mg oral tablet, 1 packets, Oral, Daily, Take 2 tablets on day 1 and 1 tablet days 2 through 5 with a quantity of 6., # 6 tab, 0 Refill(s), Pharmacy: [facility] Tessalon Perles 100 mg oral capsule, 200 mg = 2 cap, Oral, TID, PRN as needed for cough, # 30 cap, 0 Refill(s), Pharmacy: [facility] Patient Instructions Start Zpak as directed; restart zyrtec and start using your steamer and nasal saline.?? Use cough medicine as needed up to 3 times daily.?? Consider trying Sensimyst (can get rvge-gvc-toaziut) Watch for any reaction from the Zpak. Follow up if not better by 7-10 days.?? Patient Education Sinus Infection, Adult, Kgrn-ny-Jpbk Problem List/Past Medical History Ongoing Abnormal leg [...] and structure, unspecified Emphysema lung Epigastric pain Extrapyramidal movements Fatigue Fibrocystic changes of both breasts Full thickness rotator cuff tear Gait disturbance Gastroesophageal reflux disease Globus sensation Goiter Graves disease H/O: ear disorder History of kidney stone History of rectal bleeding Hyperlipidemia Kidney stone Left rotator cuff syndrome Lower abdominal pain Mass of female genital structure Midline cystocele Migraine without status migrainosus, not intractable Nausea Neck pain Nephrolithiasis Neuralgia Numbness of [...] lung Otitis externa Tobacco use Procedure/Surgical History ???Mammogram (04/13/2019)???Injection left shoulder, cortisone [...] mg= 1 tab, Oral, BID, 3 refills Tessalon Perles 100 mg oral capsule, 200 mg= 2 cap, Oral, TID, PRN Tylenol 325 mg oral tablet, 650 mg= 2 tab, Oral, Daily Vitamin D3 2000 intl units oral tablet, 50 mcg= 1 tab, Oral, Daily, 3 refills Zithromax Z-Philipp 250 mg oral tablet, 1 packets, Oral, Daily ZyrTEC 10 mg oral tablet, 10 mg= [...] size cups and amount per day. 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 many years ago [...] mRNA-1273 vaccine 08/12/2020 Recorded Electronically Signed on 02/16/23 02:12 PM Chelly Colmenares MD Outpatient Summary note * Chelly Colmenares MD: PERFORM Event Display: Ambulatory Patient Summary Authored Date: [id number] OMARI HAWKINS :1960 Age:62 years Sex:Female Visit Date:02/16/2023 Primary Care Physician: Ken Murdock DO Ambulatory Visit Instructions We would like to thank you for allowing us to assist you with your healthcare needs. The following includes patient education materials and information regarding your injury/illness. Your Next Steps Instructions From Your Care Team Start Zpak as directed; restart zyrtec and start using your steamer and nasal saline.?? Use cough medicine as needed up to 3 times daily.?? Consider trying Sensimyst (can get csxo-lqn-invelyj) Watch for any reaction from the Zpak. Follow up if not better by 7-10 days.?? Scheduled Future Appointments 2022 9:45 AM EDT ?? Where: [facility] Endoscopy Status: Confirmed Wednesday 10:00 AM EDT ?? With: Kam Nye MD Where: [facility] Neurology Status: Confirmed Wednesday 10:30 AM EDT ?? With: Anastasiia Garcias APRN Where: [facility] Gastroenterology Status: Confirmed Wednesday 10:00 AM EST ?? With: Kam Nye MD Where: [facility] Neurology Status: Confirmed Medications What How Much When Instructions New azithromycin (Zithromax Z-Philipp 250 mg oral tablet) 1 packets Oral (given by mouth) Every day Duration: 5 Days Take 2 tablets on day 1 and 1 tablet days 2 through 5 with a quantity of 6. ?? Pickup at [facility] New benzonatate (Tessalon Perles 100 mg oral capsule) 2 Capsules Oral (given by mouth) 3 times a day as needed for as needed for cough Pickup at [facility] Changed famotidine (Pepcid 20 mg oral tablet) 1 tab Oral (given by mouth) 2 times a day Duration: 30 Days Unchanged acetaminophen (Tylenol 325 mg oral tablet) 2 tab Oral (given by mouth) Every day Duration: 30 Days Unchanged ALPRAZolam (ALPRAZolam 0.5 mg oral tablet) See instructions May take 1 tab up to 2 times daily as needed for anxiety ?? Unchanged cetirizine (ZyrTEC 10 mg oral tablet) 1 tab Oral (given by mouth) Every day as needed for as needed for allergy symptoms Unchanged cholecalciferol (Vitamin D3 2000 intl units oral tablet) 1 tab Oral (given by mouth) Every day Duration: 90 Days Unchanged ibuprofen (Advil 200 mg oral tablet) 2 tab Oral (given by mouth) Every day Duration: 30 Days with food or milk ?? PRN ?? Unchanged methocarbamol (methocarbamol 750 mg oral tablet) 1 tab Oral (given by mouth) Every 4 hours as needed for as needed for pain PRN ?? Unchanged ondansetron (!-Zofran ODT 4 mg oral tablet, disintegrating) 1 tab Oral (given by mouth) Every 8 hours as needed for as needed for nausea/vomiting Duration: 30 Days Unchanged pantoprazole (pantoprazole 40 mg oral delayed release tablet) 1 tab Oral (given by mouth) Every day Duration: 30 Days 30 minutes before evening meal ?? Pharmacy Information [facility]: [address] [place], [place] [id number] [phone] ?? What When Comments Stop Taking Other Prescription (AAA - Misc Prescription) 90 unknown unit ?? Your Summary Your Diagnosis Sinusitis, acute Problems Ongoing - Any problem that you are currently receiving treatment for. Abnormal leg movement Acute back pain with [...] Tobacco use Tobacco user von Willebrand's disease Your Care Team Attending Physician - Chelly Colmenares MD Primary Care Physician - Ken Murdock, DO Discharge Vitals Temperature??(Tympanic) 97.5 ??F (36.4 ??C) Heart Rate??(Peripheral) 84 Blood Pressure?? 102/62?? Weight?? 142.22 lb (64.5 kg) Allergies Chantix Toradol??(itchy, rash on hands and feet) Tylox??(very itchy) Vicodin??(Unknown) azithromycin ciprofloxacin??(? Nausea) diazePAM??(very shakey) penicillin V potassium??(Unknown) traMADol??(Unknown) varenicline??(Unknown) Education Materials Sinus Infection, Adult A sinus infection is soreness and swelling (inflammation) of your sinuses. Sinuses are hollow spaces in the bones around your face. They are located: ? Around your eyes. ? In the middle of your forehead. ? Behind your nose. ? In your cheekbones. Your sinuses and nasal passages are lined with a fluid called mucus. Mucus drains out of your sinuses. Swelling can trap mucus in your sinuses. This lets germs (bacteria, virus, or fungus) grow, which leads to infection. Most of the time, this condition is caused by a virus. What are the causes? Allergies. ? Asthma. ? Germs. ? Things that block your nose or sinuses. ? Growths in the nose (nasal polyps). ? Chemicals or irritants in the air. ? A fungus. This is rare. What increases the risk? Having a weak body defense system (immune system). ? Doing a lot of swimming or diving. ? Using nasal sprays too much. ? Smoking. What are the signs or symptoms? The main symptoms of this condition are pain and a feeling of pressure around the sinuses. Other symptoms include: ? Stuffy nose (congestion). This may make it hard to breathe through your nose. ? Runny nose (drainage). ? Soreness, swelling, and warmth in the sinuses. ? A cough that may get worse at night. ? Being unable to smell and taste. ? Mucus that collects in the throat or the back of the nose (postnasal drip). This may cause a sore throat or bad breath. ? Being very tired (fatigued). ? A fever. How is this diagnosed? Your symptoms. ? Your medical history. ? A physical exam. ? Tests to find out if your condition is short-term (acute) or long-term (chronic). Your doctor may: ? Check your nose for growths (polyps). ? Check your sinuses using a tool that has a light on one end (endoscope). ? Check for allergies or germs. ? Do imaging tests, such as an MRI or CT scan. How is this treated? Treatment for this condition depends on the cause and whether it is short-term or long-term. ? If caused by a virus, your symptoms should go away on their own within 10 days. You may be given medicines to relieve symptoms. They include: ? Medicines that shrink swollen tissue in the nose. ? A spray that treats swelling of the nostrils. ? Rinses that help get rid of thick mucus in your nose (nasal saline washes). ? Medicines that treat allergies (antihistamines). ? Mdfk-rjf-vbpzngv pain relievers. ? If caused by bacteria, your doctor may wait to see if you will get better without treatment. You may be given antibiotic medicine if you have: ? A very bad infection. ? A weak body defense system. ? If caused by growths in the nose, surgery may be needed. Follow these instructions at home: Medicines ? Take, use, or apply rcbv-uuh-srhigdc and prescription medicines only as told by your doctor. These may include nasal sprays. ? If you were prescribed an antibiotic medicine, take it as told by your doctor. Do not stop taking it even if you start to feel better. Hydrate and humidify ? Drink enough water to keep your pee (urine) pale yellow. ? Use a cool mist humidifier to keep the humidity level in your home above 50%. ? Breathe in steam for 10???15 minutes, 3???4 times a day, or as told by your doctor. You can do thisin the bathroom while a hot shower is running. ? Try not to spend time in cool or dry air. Rest ? Rest as much as you can. ? Sleep with your head raised (elevated). ? Make sure you get enough sleep each night. General instructions ? Put a warm, moist washcloth on your face 3???4 times a day, or as often as told by your doctor. ? Use nasal saline washes as often as told by your doctor. ? Wash your hands often with soap and water. If you cannot use soap and water, use hand dieing out machine operator. ? Do not smoke. Avoid being around people who are smoking (secondhand smoke). ? Keep all follow-up visits. Contact a doctor if: ? You have a fever. ? Your symptoms get worse. ? Your symptoms do not get better within 10 days. Get help right away if: ? You have a very bad headache. ? You cannot stop vomiting. ? You have very bad pain or swelling around your face or eyes. ? You have trouble seeing. ? You feel confused. ? Your neck is stiff. ? You have trouble breathing. These symptoms may be an emergency. Get help right away. Call 911. ? Do not wait to see if the symptoms will go away. ? Do not drive yourself to the hospital. Summary ? A sinus infection is swelling of your sinuses. Sinuses are hollow spaces in the bones around your face. ? This condition is caused by tissues in your nose that become inflamed or swollen. This traps germs.These can lead to infection. ? If you were prescribed an antibiotic medicine, take it as told by your doctor. Do not stop taking it even if you start to feel better. ? Keep all follow-up visits. This information is not intended to replace advice given to you by your health care provider. Make sure you discuss any questions you have with your health care provider. Document Revised: 06/16/2022 Document Reviewed: 06/16/2022 [employer] Patient Education ?? 2022 [employer] Electronically Signed on: 02/16/2023 13:45 EDTSigned by: Patient Care team information Care Team Personnel Name: Ken Murdock DO Position: Physician Member Role: Primary Care Physician Address: Address: [address] [place] [id number] [place] Care Team Related Persons Name: ZANE BANKS Address: Home
--- OUTSIDE RECORDS SUMMARY | 2023-08-16 16:27 | XMS_ITS | Continuity of Care Document ---
Author Name Unknown Organization [facility] Address [address] [place] [address] Care Team Providers Care Eligibility Consultant Name Role Phone Ken Murdock DO Primary Care Physician Encounter [facility] FIN NBR [id number] Date(s): 11/24/22 - 11/24/22 [facility] [address] [place] [address]- Discharge Disposition: Home or Self Care Attending [...] Plan Future Appointments Diagnostic Tests Pending * Immunofixation, Serum LC 11/24/22 * Protein Elec + Interp, Serum LC 11/24/22 Future Scheduled Tests Radiology* MG Mammo Screening Bilateral 05/15/22 Medications Advil 200 mg oral tablet 0 Refill(s) Start Date: 11/16/22 Status: Ordered ALPRAZolam 0.5 mg oral tablet See Instructions, May take 1 tab up to 2 times daily as needed for anxiety, # 30 tab, 2 Refill(s), [facility]acy: [facility] Start Date: 09/21/22 Status: Ordered methocarbamol [...] Daily, # 90 tab, 3 Refill(s), Pharmacy: [facility] #[facility] Start Date: 09/02/22 Stop Date: 08/28/23 [...] Confirmed Active Superficial mycosis, unspecified Confirmed Active Results Laboratory List Name Date Hgb A1c 11/24/22 Sedimentation Rate (ESR) 11/24/22 Vitamin B12 & Folate Level 11/24/22 Most recent to oldest [Reference Range]: 1 Folate Level [>=5.9 ng/mL] 10.6 ng/mL (11/24/22 2:32 PM) B12 Level [180-914 pg/mL] 331 pg/mL (11/24/22 2:32 PM) eAvg Glucose 103 *NA* (11/24/22 2:32 PM) Hgb A1c Percent [4.0-6.0 %] 5.2 % (11/24/22 2:32 PM) .Hb 14.9 g/dL *NA* (11/24/22 2:32 PM) .Hgb A1c 0.5 g/dL *NA* (11/24/22 2:32 PM) ESR, Westergren [0-20 mm/hr] 9 mm/hr (11/24/22 2:32 PM) Social History Social History Type Response Tobacco Current everyday tob acco user Tobacco Use:. Sex Female Patient Care team information Care Team Personnel Name: Ken Murdock DO Position: Physician Member Role: Primary Care Physician Address: Address: [address] [place] [phone] [place] Care Team Related Persons Name: ZANE BANKS Address: Home
--- OUTSIDE RECORDS SUMMARY | 2023-08-16 16:27 | XMS_ITS | Continuity of Care Document ---
Author Name Unknown Organization [facility] Address [address] [place] [address] Care Team Providers Care Phlebotomy Coordinator Name Role Phone Ken Murdock DO Primary Care Physician Encounter [facility] NBR [id number] Date(s): 05/05/23 - 05/05/23 [facility] [address] [place] [address]- Encounter Diagnosis Erosive gastropathy(Discharge Diagnosis) - 05/05/23 Gastroesophageal reflux disease(Discharge Diagnosis) - 05/05/23 Discharge Disposition: Home or Self Care Attending Physician: Anastasiia Garcias APRN Allergies, Adverse Reactions, Alerts Substance Reaction Severity Status ciprofloxacin ? Nausea Unknown Active azithromycin 1 Rash Unknown Active varenicline Unknown Unknown Active traMADol Unknown Unknown Active diazePAM very shakey Unknown Active Chantix Unknown Active penicillin V potassium Unknown Unknown Activ e Vicodin Itchy Unknown Severe Active Toradol itchy, rash on hands and feet Unknown Active Tylox very itchy Unknown Active 1May have had sun rash; tolerated zpak in past without problems previously Assessment and Plan Future Appointments Future Scheduled Tests Laboratory* Free K+L Lt Chains,Qn,S LC 12/22/22 Radiology* MG Mammo Screening Bilateral 05/15/22 * XR Bone Survey (Metastatic) 12/12/22 * XR Bone Survey (Metastatic) 12/22/22 Functional Status 05/05/23 Other exposure to Infectious Disease Non e [...] heartburn, # 60 tab, 11 Refill(s), Pharmacy: [facility], [...] # 30 tab, 11 Refill(s), [facility]: [facility] [...] 1auto-populated from documented surgical case 2CAT 2 [id number]... 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, right breast biopsy 7date unknown Vital Signs Most recent to oldest [Reference Range]: 1 Temperature Temporal Artery [36-38 Deg C ] 36.0 Deg C (05/05/23 3:26 PM) Apical Heart Rate [60-100 bpm] 87 bpm (05/05/23 3:26 PM) Blood Pressure [90-140/60-90 mmHg] 122/8 0mmHg (05/05/23 3:26 PM) Social History Social History Type Response Tobacco Current everyday tob acco user Tobacco Use:. 1/2 ppd depending on stress never over 1 pack per day. Sex Female Physician Outpatient Note * Anastasiia Garcias APRN: PERFORM Event Display: Office Clinic Note Physician Authored Date: [id number] OMARI HAWKINS :1960 Age:62 years Sex:Female Visit Date:05/05/2023 Primary Care Physician: Ken Murdock DO Chief Complaint Follow-up erosive gastropathy History of Present Illness Patient is a 62-year-old??female here today at the request of Dr. Murdock for epigastric pain.?? She is an established patient here today for follow-up of erosive gastropathy. ??She reports in the last??1 to 2 months she has had epigastric and lower abdominal pain.?? She has nausea that is intermittent and occurs??daily. ??Complains of increasing gas,??belching,??and bloating.?? She has gained weight. ??Her appetite is diminished.?Currently she denies any epigastric pain, nausea, vomiting,??pyrosis or dyspepsia. ??Is not complaining of flatulence, belching or bloating. ??Her weight has been stable. ??Appetite is normal.?Denies any problems with constipation or diarrhea.?Has tried o meprazole in the past that was not effective. ??Uses Zantac as needed.?? Dysphagia or globus sensation.?? She has been tried on pantoprazole and felt throat was closing has since stopped. ?? She was using NSAIDs frequently for migraines. ??She has since stopped. ??She has not yet seen neurology to discuss alternatives. ??Her primary care??referred her??Tylenol only. ??She states when shesteps outside she has burning sensation in her chest with deep breath??specially with cold weather.??She has been avoiding acid reflux triggering foods and beverages. ??She has tried??tomatoes recently and had no difficulties. ?? She saw ENT??at [facility]who saw no concerns. ??A laryngoscopy was normal. ?? Denies substance use. ?? 03/22/2017 patient [...] in HPI. Physical Exam Vitals & Measurements T:??36.0?C ??(Temporal Artery)?? HR:??87??(Apical)?? BP:??122/80?? SpO2:??98%?? General: Well-nourished well-developed??female??in no acute distress. HEENT: [...] steady. Psychological: Pleasant, calm and cooperative. Assessment/Plan 1.??Erosive gastropathy??K31.89 Patient has not tolerated omeprazole or??pantoprazole.?? Recommend continuation of Pepcid 20 mg twice daily. ??Advised to avoid NSAIDs??and speak to neurology in regards to alternatives??for her migraines.?? Advised patient to follow-up on an as-needed basis if she has any problems or concerns. ??She is asymptomatic at this time??her symptoms??occur with??breathing in cold air??or exertion.?? Sugg est pulmonology and/or cardiology??follow-up. Consider GI referral to [facility] if she has ongoing symptoms. 2.??Gastroesophageal reflux disease??K21.9 As above. ??We discussed reflux triggering foods and beverages to avoid, to avoid eating 3 hours before bedtime and eat small frequent meals. Voice recognition software utilized which may result in minor workforce development program director error. Problem List/Past Medical History Ongoing Abnormal [...] size cups and amount per day. 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 many years ago [...] mRNA-1273 vaccine 08/12/2020 Recorded Electronically Signed on 05/05/23 03:56 PM Anastasiia Garcias APRN Patient Care team information Care Team Personnel Name: Ken Murdock DO Position: Physician Member Role: Primary Care Physician Address: Address: [address] [place] [phone] [place] Care Team Related Persons Name: ZANE BAKNS
--- OUTSIDE RECORDS SUMMARY | 2023-08-16 16:27 | XMS_ITS | Continuity of Care Document ---
Author Name Unknown Organization [facility] Address [address] [place] [address] Care Team Providers Care Flight Inspector Name Role Phone Ken Murdock DO Primary Care Physician Encounter [facility] FIN NBR [id number] Date(s): 08/11/22 - 08/11/22 [facility] [address] [place] [address]- Discharge Disposition: Home or Self Care Attending Physician: Ken Murdock DO Admitting Physician: Ken Murdock DO Referring Physician: Ken Murdock DO Assessment and Plan Future Scheduled Tests Radiology* MG Mammo Screening Bilateral 05/15/22 * MG Mammo Screening Bilateral 06/03/22 Medications ALPRAZolam 0.5 mg oral tablet See Instructions, May take 1 tab up to 2 times daily as needed for anxiety, # 30 tab, 2 Refill(s), [facility]acy: [facility] Start Date: 06/08/22 Status: Ordered Results Laboratory List Name Date CBC w/ Diff 08/11/22 Comprehensive Metabolic Panel (CMP) 08/11 TSH w/ Rflx to Free T4 08/11/22 Vitamin D 25 Hydroxy Level 08/11/22 Automated Diff 08/11/22 Most recent to oldest [Reference Range]: 1 WBC [4.8-10.8 K/mcL] 7.8 K/mcL (08/11/22 1:35 PM) RBC [4.20-6.10 Million/mcL] 4.73 Million /mcL (08/11/22 1:35 PM) Neutro Auto [42.2-75.2 %] 61.4 % (08/11/22 1:35 PM) Lymph Auto [20.5-51.1 %] 29.5 % (08/11/22 1:35 PM) Hutchinson Auto [1.7-9.3 %] 6.3 % (08/11/22 1:35 PM) Basophil Auto [0.0-0.8 %] 0.9 % *HI* (08/11/22 1:35 PM) BUN [8-26 mg/dL] 16 mg/dL (08/11/22 1:35 PM) Glucose Level [74-106 mg/dL] 84 mg/dL (08/11/22 1:35 PM) Potassium Level [3.5-5.1 mmol/L] 3.8 mmo l/L (08/11/22 1:35 PM) Baso Absolute [0.0-0.2 K/mcL] 0.1 K/mcL (08/11/22 1:35 PM) MCV [80.0-99.0 fL] 90.3 fL (08/11/22 1:35 PM) AST [15-41 IntlUnit/L] 17 IntlUnit/L (08/11/22 1:35 PM) ALT [14-54 IntlUnit/L] 11 IntlUnit/L *LOW* (08/11/22 1:35 PM) MCHC [32.0-36.0 g/dL] 34.2 g/dL (08/11/22 1:35 PM) Osmolality [275-295 mOsm/kg] 274 mOsm/kg *LOW* (08/11/22 1:35 PM) Sodium Level [134-143 mmol/L] 137 mmol/L (08/11/22 1:35 PM) Lymph Absolute [1.2-3.4 K/mcL] 2.3 K/mcL (08/11/22 1:35 PM) Hct [37.0-52.0 %] 42.7 % (08/11/22 1:35 PM) Vitamin D 25 OH [30.0-100.0 ng/mL] 26.8 ng/mL *LOW* (08/11/22 1:35 PM) Calcium Level [8.9-10.3 mg/dL] 10.1 mg/d L (08/11/22 1:35 PM) Hutchinson Absolute [0.1-0.6 K/mcL] 0.5 K/mcL (08/11/22 1:35 PM) Albumin Level [3.5-5.0 g/dL] 4.4 g/dL (08/11/22 1:35 PM) Protein Total [6.5-8.1 g/dL] 7.4 g/dL (08/11/22 1:35 PM) MCH [27.0-31.0 pg] 30.9 pg (08/11/22 1:35 PM) Neutro Absolute [1.4-6.5 K/mcL] 4.8 K/mc L (08/11/22 1:35 PM) Bilirubin Total [0.2-1.2 mg/dL] 0.3 mg/d L (08/11/22 1:35 PM) Hgb [12.0-18.0 g/dL] 14.6 g/dL (08/11/22 1:35 PM) Alk Phos [38-130 IntlUnit/L] 59 IntlUnit /L (08/11/22 1:35 PM) MPV [7.4-10.4 fL] 11.3 fL *HI* (08/11/22 1:35 PM) Platelets [130-400 K/mcL] 217 K/mcL (08/11/22 1:35 PM) CO2 [22-32 mmol/L] 29 mmol/L (08/11/22 1:35 PM) Eos Absolute [0.0-0.2 K/mcL] 0.1 K/mcL (08/11/22 1:35 PM) TSH [0.45-5.33 mIntlUnit/mL] 4.08 mIntlU nit/mL (08/11/22 1:35 PM) eGFR Non-AA 90 *NA* (08/11/22 1:35 PM) eGFR AA 90 *NA* (08/11/22 1:35 PM) Chloride Level [98-111 mmol/L] 99 mmol/L (08/11/22 1:35 PM) RDW-CV [11.5-14.5 %] 12.5 % (08/11/22 1:35 PM) A/G Ratio 1.5 *NA* (08/11/22 1:35 PM) BUN/Creat Ratio [8.0-20.0] 21.3 *HI* (08/11/22 1:35 PM) Globulin 3.0 *NA* (08/11/22 1:35 PM) Imm Gran Absolute 0.03 *NA* (08/11/22 1:35 PM) Imm Gran Auto [0.0-0.5 %] 0.4 % (08/11/22 1:35 PM) Creatinine Level [0.44-1.00 mg/dL] 0.75 mg/dL (08/11/22 1:35 PM) Anion Gap [3.0-12.0] 9.0 (08/11/22 1:35 PM) Eos, Auto [0.00-3.00 %] 1.50 % (08/11/22 1:35 PM) Social History Social History Type Response Sex Female Patient Care team information Personnel Name: Ken Murdock DO Address: Address: [address] [place] [phone]
--- OUTSIDE RECORDS SUMMARY | 2023-08-16 16:27 | XMS_ITS | Continuity of Care Document ---
Author Name Unknown Organization [facility] Address [address] [place] [address] Care Team Providers Care Engineer Assistant Name Role Phone Ken Murdock DO Primary Care Physician Encounter [facility] NBR [id number] Date(s): 12/25/22 - 12/25/22 [facility] [address] [place], [place] [address] Discharge Disposition: Home Allergies, Adverse Reactions, Alerts [...] for nausea/vomiting, # 30 tab, 1 Refill(s), [facility]acy[facility] Start Date: 12/22/22 Stop Date: 02/20/23 [...] anxiety, # 30 tab, 2 Refill(s), [facility]acy: [facility] Start Date: 09/21/22 Status: Ordered methocarbamol 750 mg oral tablet 750 mg = 1 tab, Oral, every 4 hr, PRN as needed for pain, PRN, # 60 tab, 0 Refill(s) Start Date: 11/16/22 Status: Ordered pantoprazole 40 mg oral delayed release tablet 40 mg = 1 tab, Oral, Daily, 30 minutes before evening meal, # 30 tab, 3 Refill(s), [facility] Start Date: 12/22/22 Stop Date: 04/21/23 Status: Ordered Pepcid 20 mg oral tablet 20 mg = 1 tab, Oral, BID, # 60 tab, 3 Refill(s), Pharmacy: [facility] Start Date: 12/24/22 Stop Date: 04/23/23 Status: Ordered Tylenol 325 mg oral tablet 650 mg = 2 tab, Oral, Daily, # 60 tab, 0 Refill(s) Start Date: 11/16/22 Stop Date: 01/07/23 Status: Ordered Vitamin D3 2000 intl units oral tablet 50 mcg = 1 tab, Oral, Daily, # 90 tab, 3 Refill(s), Pharmacy: [facility] Start Date: 09/02/22 Stop Date: 08/28/23 [...] Tonsillectomy and adenoidectomy 6 Completed 1CAT 2 [id number]... 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 1/2 ppd depending on stress never over 1 pack per day. Sex Female Patient Care team information Care Team Personnel Name: Ken Murdock DO Position: Physician Member Role: Primary Care Physician Address: Address: [address] [place] [phone] [place] Care Team Related Persons Name: ZANE BANKS Address: Home
--- OUTSIDE RECORDS SUMMARY | 2023-08-16 16:27 | XMS_ITS | Continuity of Care Document ---
Author Name Unknown Organization [facility] Address [address] [place] [address] Care Team Providers Care Patient Services Manager Name Role Phone Ken Murdock DO Primary Care Physician Encounter [facility] NBR [id number] Date(s): 02/19/23 - 02/19/23 [facility] [address] [place], [place] [address] Discharge Disposition: Home Allergies, Adverse [...] for nausea/vomiting, # 30 tab, 1 Refill(s), Pharmacy:[facility] Start Date: 12/22/22 Stop Date: 02/20/23 [...] anxiety, # 30 tab, 2 Refill(s), Pharmacy: [facility] Start Date: 09/21/22 Status: Ordered methocarbamol 750 mg oral tablet 750 mg = 1 tab, Oral, every 4 hr, PRN as needed for pain, PRN, # 60 tab, 0 Refill(s) Start Date: 11/16/22 Status: Ordered pantoprazole 40 mg oral delayed release tablet 40 mg = 1 tab, Oral, Daily, 30 minutes before evening meal, # 30 tab, 3 Refill(s), Pharmacy: [facility] Start Date: 12/22/22 Stop Date: 04/21/23 Status: Ordered Pepcid 20 mg oral tablet 20 mg = 1 tab, Oral, BID, # 60 tab, 3 Refill(s), Pharmacy: [facility] Start Date: 12/24/22 Stop Date: 04/23/23 Status: Ordered Tessalon Perles 100 mg oral capsule 200 mg = 2 cap, Oral, TID, PRN as needed for cough, # 30 cap, 0 Refill(s), Pharmacy: [facility] Start Date: 02/16/23 Status: Ordered Tylenol 325 mg oral tablet 650 mg = 2 tab, Oral, Daily, # 60 tab, 0 Refill(s) Start Date: 11/16/22 Stop Date: 01/07/23 Status: Ordered Vitamin D3 2000 intl units oral tablet 50 mcg = 1 tab, Oral, Daily, # 90 tab, 3 Refill(s), Pharmacy: [facility] Start Date: 09/02/22 Stop Date: 08/28/23 Status: Ordered Zithromax Z-Philipp 250 mg oral tablet See Instructions, Take 2 tablets on day one. Take 1 tablet days two through five., # 6 tab, 0 Refill(s), Pharmacy: [facility] Start Date: 02/17/23 Status: Ordered ZyrTEC [...] Tonsillectomy and adenoidectomy 6 Completed 1CAT 2 10925 [id number]... 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 1/2 ppd depending on stress never over 1 pack per day. Sex Female Patient Care team information Care Team Personnel Name: Ken Murdock DO Position: Physician Member Role: Primary Care Physician Address: Address: [address] [place] [phone] [place] Care Team Related Persons Name: ZANE BANKS Address: Home
--- OUTSIDE RECORDS SUMMARY | 2023-08-16 16:27 | XMS_ITS | Continuity of Care Document ---
Author Name Unknown Organization [facility] Address [address] [place] [address] Care Team Providers Care Financial Planner Name Role Phone Ken Murdock DO Primary Care Physician Encounter [facility] NBR [id number] Date(s): 02/08/23 - 02/08/23 [facility] [address] [place], [place] [address] Encounter Diagnosis Pain in right hip(Final) - Discharge Disposition: Home or Self Care Attending Physician: Jh Martino MD Admitting Physician: Jh Martino MD Referring Physician: Jh Martino MD Allergies, Adverse Reactions, Alerts Substance Reaction Severity Status ciprofloxacin ? Nausea Unknown Active azithromycin Unknown Active varenicline Unknown Unknown Active Toradol itchy, rash on hands and feet Unknown Active traMADol Unknown Unknown Active diazePAM very shakey Unknown Active Chantix Unknown Active penicillin V potassium Unknown Unknown Activ e Vicodin Unknown Unknown Active Tylox very itchy Unknown Active [...] for nausea/vomiting, # 30 tab, 1 Refill(s), Pharmacy:[facility] Start Date: 12/22/22 Stop Date: 02/20/23 Status: Ordered AAA - Misc Prescription 90 unknown unit, 0 Refill(s) Start [...] anxiety, # 30 tab, 2 Refill(s), Pharmacy: [facility] Start Date: 09/21/22 Status: Ordered famotidine [...] meal, # 30 tab, 3 Refill(s), [facility]: [facility] Start Date: 12/22/22 Stop Date: 04/21/23 Status: Ordered Pepcid 20 mg oral tablet 20 mg = 1 tab, Oral, BID, # 60 tab, 3 Refill(s), Pharmacy: [facility] Start Date: 12/24/22 Stop Date: 04/23/23 Status: Ordered Tylenol 325 mg oral tablet 650 mg = 2 tab, Oral, Daily, # 60 tab, 0 Refill(s) Start Date: 11/16/22 Stop Date: 01/07/23 Status: Ordered Vitamin D3 2000 intl units oral tablet 50 mcg = 1 tab, Oral, Daily, # 90 tab, 3 Refill(s), Pharmacy: [facility] Start Date: 09/02/22 Stop Date: 2/3/24 Status: Ordered ZyrTEC 10 mg oral tablet [...] Tonsillectomy and adenoidectomy 6 Completed 1CAT 2 85174 [id number]... Left parotidectomy 08/27 to benign tumor, right breast biopsy 6date unknown Results Radiology Reports * Exam Date Time Procedure Performing Provider Status 02/08/23 8:50 AM XR Hip 2-3 Views w/A P Pelvis Right Vidya Salvador; Camilla (Verified) Notes: (XR Hip 2-3 Views w/AP Pelvis Right) Reason For Exam: RIGHT HIP XR Hip 2-3 Views w/AP Pelvis Right EXAM DESCRIPTION: XR Hip 2-3 Views w/AP Pelvis Right 02/08/2023 INDICATION: RIGHT HIP TECHNIQUE: Pelvis and right hip, three views COMPARISON: 10/23/2021 IMPRESSION: Status post ORIF of the right proximal femur with intramedullary nail and plate fixation apparatus. Alignment is stable and satisfactory. Hardware appears intact. No acute fracture or dislocation. SI joints appear symmetric and pubic symphysis appears intact. No significant hip arthritic changes. JOB #: [id number] Final Signed by: Cy De Dios MD Signed (Electronic Signature): 02/08/2023 10:13 am Social History Social History Type Response Tobacco Current everyday tob acco user Tobacco Use:. 1/2 ppd depending on stress never over 1 pack per day. Sex Female Patient Care team information Care Team Personnel Name: Ken Murdock DO Position: Physician Member Role: Primary Care Physician Address: Address: [address] [place] [phone] [place] Care Team Related Persons Name: ZANE BANKS Address: Home
--- OUTSIDE RECORDS SUMMARY | 2023-08-16 16:27 | XMS_ITS | Continuity of Care Document ---
Author Name Unknown Organization [facility] Address [address] [place] [address] Care Team Providers Care Varnish Finisher Name Role Phone Ken Murdock DO Primary Care Physician Encounter [facility] NBR [id number] Date(s): 12/18/22 - 12/18/22 [facility] [address] [place], [place] [address] Discharge Disposition: Home Allergies, Adverse Reactions, [...] anxiety, # 30 tab, 2 Refill(s), Pharmacy: [facility] Start Date: 09/21/22 Status: Ordered methocarbamol [...] # 90 tab, 3 Refill(s), [facility] Start Date: 09/02/22 Stop Date: 08/28/23 [...] Tonsillectomy and adenoidectomy 6 Completed 1CAT 2 69473 [id number]... Left parotidectomy / to benign tumor, right breast biopsy 6date unknown Social History Social History Type Response Tobacco Current everyday tob acco user Tobacco Use:. 1/2 ppd depending on stress never over 1 pack per day. Sex Female Patient Care team information Care Team Personnel Name: Ken Murdock DO Position: Physician Member Role: Primary Care Physician Address: Address: [address] [place] [phone] [place] Care Team Related Persons Name: ZANE BANKS Address: [place]
--- OUTSIDE RECORDS SUMMARY | 2023-08-16 16:27 | XMS_ITS | Continuity of Care Document ---
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) - 05/31/23 Discharge Disposition: Home or Self Care Attending Physician: Kam Nye MD Admitting Physician: Kam Nye MD Allergies, Adverse Reactions, [...] problems previously Assessment and Plan Future Appointments Diagnostic Tests Pending * Immunofixation, Serum LC 05/31/23 * Protein Elec + Interp, Serum LC 05/31/23 Future Scheduled Tests Laboratory* Free K+L Lt Chains,Qn,S LC 12/22/22 Radiology* XR Bone Survey (Metastatic) 12/12/22 * XR Bone Survey (Metastatic) 12/22/22 Immunizations Given and Recorded Vaccine Date Status Refusal Reason SARS-CoV-2 (COVID-19) mRNA-1273 vaccine 09/09/20 R ecorded SARS-CoV-2 (COVID-19) mRNA-1273 vaccine 08/12/20 R ecorded Medications acetaminophen 500 mg oral tablet 2 tab, Oral, every 8 hr, PRN NEEDED, Please call [phone] to make a 6 month follow up for 08/2023, # 90 tab, 0 Refill(s), Pharmacy: [id number], 175.26, cm, 02/22/23 17:26:00 EDT, Height/Length Dosing, 63.5, kg, 02/22/23 17:26:00 EDT, Weight Dosing Start Date: 05/14/23 Status: Ordered ALPRAZolam 0.5 mg oral tablet See Instructions, May take 1 tab up to 2 times daily as needed for anxiety, # 30 tab, 2 Refill(s), Pharmacy: [id number] Start Date: 09/21/22 Status: Ordered methocarbamol 750 mg oral tablet 750 mg = 1 tab, Oral, every 4 hr, PRN as needed for pain, PRN, # 60 tab, 0 Refill(s) Start Date: 11/16/22 Status: Ordered pantoprazole 40 mg oral delayed release tablet 40 mg = 1 tab, Oral, Daily, 30 minutes before, # 30 tab, 11 Refill(s), Pharmacy: [id number], 175.26, cm, 02/22/23 17:26:00 EDT, Height/Length Dosing, 63.5, kg, 02/22/23 17:26:00 EDT, Weight Dosing Start Date: 04/12/23 Stop Date: 04/06/24 Status: Ordered Pepcid 20 mg oral tablet 20 mg = 1 tab, Oral, BID, PRN heartburn, # 60 tab, 11 Refill(s), Pharmacy: [id number], 175.26, cm, 02/22/23 17:26:00 EDT, Height/Length Dosing, 63.5, kg, 02/22/23 17:26:00 EDT, Weight Dosing Start Date: 04/12/23 Stop Date: 04/06/24 Status: Ordered Vitamin B12 1,000 mcg =, Oral, Daily, 0 Refill(s) Start Date: 03/22/23 Status: Ordered Vitamin D3 2000 intl units oral tablet 50 mcg = 1 tab, Oral, Daily, # 90 tab, 3 Refill(s), Pharmacy: [id number] Start Date: 09/02/22 Stop Date: 08/28/23 Status: Ordered Wellbutrin XL 150 mg/24 hours oral tablet, extended release 150 mg = 1 tab, Oral, every 24 hr, # 30 tab, 11 Refill(s), Pharmacy: [id number], 175.26, cm, 02/22/23 17:26:00 EDT, Height/Length [...] 1auto-populated from documented surgical case 2CAT [id number]... Left parotidectomy 2 to benign tumor, right breast biopsy 7date unknown Results Laboratory List Name Date CBC w/ Diff 05/31/23 Comprehensive Metabolic Panel 05/31/23 Automated Diff 05/31/23 Most recent to oldest [Reference Range]: 1 WBC [4.8-10.8 K/mcL] 6.7 K/mcL (05/31/23 10:55 AM) RBC [4.20-5.40 Million/mcL] 4.85 Million /mcL (05/31/23 10:55 AM) Neutro Auto [42.2-75.2 %] 64.9 % (05/31/23 10:55 AM) Lymph Auto [20.5-51.1 %] 25.4 % (05/31/23 10:55 AM) [place] Auto [1.7-9.3 %] 6.0 % (05/31/23 10:55 AM) Basophil Auto [0.0-0.8 %] 0.7 % (05/31/23 10:55 AM) BUN [8-26 mg/dL] 13 mg/dL (05/31/23 10:55 AM) Glucose Level [74-106 mg/dL] 101 mg/dL (05/31/23 10:55 AM) Potassium Level [3.5-5.1 mmol/L] 3.8 mmo l/L (05/31/23 10:55 AM) Baso Absolute [0.0-0.2 K/mcL] 0.0 K/mcL (05/31/23 10:55 AM) MCV [81.0-99.0 fL] 91.1 fL (05/31/23 10:55 AM) AST [15-41 IntlUnit/L] 17 IntlUnit/L (05/31/23 10:55 AM) ALT [14-54 IntlUnit/L] 12 IntlUnit/L *LOW* (05/31/23 10:55 AM) MCHC [32.0-37.0 g/dL] 33.7 g/dL (05/31/23 10:55 AM) Osmolality [275-295 mOsm/kg] 274 mOsm/kg *LOW* (05/31/23 10:55 AM) Sodium Level [134-143 mmol/L] 137 mmol/L (05/31/23 10:55 AM) Lymph Absolute [1.2-3.4 K/mcL] 1.7 K/mcL (05/31/23 10:55 AM) Hct [37.0-47.0 %] 44.2 % (05/31/23 10:55 AM) Calcium Level [8.9-10.3 mg/dL] 9.8 mg/dL (05/31/23 10:55 AM) [place] Absolute [0.1-0.6 K/mcL] 0.4 K/mcL (05/31/23 10:55 AM) Albumin Level [3.5-5.0 g/dL] 4.2 g/dL (05/31/23 10:55 AM) Protein Total [6.5-8.1 g/dL] 7.2 g/dL (05/31/23 10:55 AM) MCH [27.0-31.0 pg] 30.7 pg (05/31/23 10:55 AM) Neutro Absolute [1.4-6.5 K/mcL] 4.3 K/mc L (05/31/23 10:55 AM) Bilirubin Total [0.2-1.2 mg/dL] 0.6 mg/d L (05/31/23 10:55 AM) Hgb [12.0-16.0 g/dL] 14.9 g/dL (05/31/23 10:55 AM) Alk Phos [38-130 IntlUnit/L] 68 IntlUnit /L (05/31/23 10:55 AM) MPV [7.4-10.4 fL] 11.1 fL *HI* (05/31/23 10:55 AM) Platelets [130-400 K/mcL] 192 K/mcL (05/31/23 10:55 AM) CO2 [22-32 mmol/L] 28 mmol/L (05/31/23 10:55 AM) Eos Absolute [0.0-0.2 K/mcL] 0.2 K/mcL (05/31/23 10:55 AM) Chloride Level [98-111 mmol/L] 101 mmol/ L (05/31/23 10:55 AM) RDW-CV [11.5-14.5 %] 12.2 % (05/31/23 10:55 AM) A/G Ratio [1.0-2.5 g/dL] 1.4 g/dL (05/31/23 10:55 AM) BUN/Creat Ratio [8.0-20.0] 16.7 (05/31/23 10:55 AM) Globulin [2.3-3.5 g/dL] 3.0 g/dL (05/31/23 10:55 AM) Imm Gran Absolute [0.00-0.02 K/mcL] 0.02 K/mcL (05/31/23 10:55 AM) Imm Gran Auto [0.0-0.5 %] 0.3 % (05/31/23 10:55 AM) Creatinine Level [0.44-1.00 mg/dL] 0.78 mg/dL (05/31/23 10:55 AM) Anion Gap [3.0-12.0] 8.0 (05/31/23 10:55 AM) Eos, Auto [0.00-3.00 %] 2.70 % (05/31/23 10:55 AM) eGFR CKD-EPI [>=60 mL/min/1.73 m2] 85 mL /min/1.73 m2 (05/31/23 10:55 AM) Social History Social History Type Response Tobacco Current everyday tob acco user Tobacco Use:. 1/2 ppd depending on stress never over 1 pack per day. Sex Female Patient Care team information Care Team Personnel Name: Ken Murdock DO Position: Physician Member Role: Primary Care Physician Address: Address: [address] [place] [id number] [place] Care Team Related Persons Name: ZANE BANKS
== END 2023-08-16 16:24 | disposition home or self-care (01) ==
LOC: NCHCN 16:23
PROVIDERS: PCP Family Medicine; Visit Provider Nurse Practitioner Family
DX: N30.01 Acute cystitis with hematuria (principal); R10.31 Right lower quadrant pain
CPT/HCPCS: 80053; 81003; 81015; 85025; 87086

== ENCOUNTER → 2023-08-18 01:33 | Outpatient (CLI) | payer MEDICAID, SELFPAY ==
--- NOTE | 2023-08-18 | DI.CT_ITS ---
Exam(s) CT ABDOMEN PELVIS WO EXAM: CT ABDOMEN PELVIS WO CLINICAL HISTORY: H/O KIDNEY STONES, BILAT FLANK PAIN,HEMATURIA,? RENAL CALCULI. TECHNIQUE: Imaging Protocol: Axial computed tomography images with coronal and sagittal reformatted images were created and reviewed. COMPARISON: CT CT ABDOMEN PELVIS W from 12/25/2022 FINDINGS: Lung Bases: Normal where visualized. Liver: Normal density. No measurable mass. Gallbladder and biliary tract: No radiodense calculus. No biliary ductal dilation. Pancreas: No abnormal calcifications or inflammatory process. Spleen: Normal size. Kidneys: Normal size, contour and axis. bilateral nonobstructing renal calculi, the largest at the lo wer pole of the left kidney. No ureteral calculi. No masses seen. Adrenal glands: No mass is seen. Lymph nodes: Within normal limits. Vasculature: Abdominal aorta non-dilated. Atherosclerotic changes. Bladder: Nearly empty. No visible stone. No gross wall thickening. No evidence of mass. Bowel: Large quantity of stool. No obstruction. No bowel wall thickening. Peritoneal cavity: No ascites.No free air. No focal collection. No mesenteric inflammatory response. Reproductive organs: Status post hysterectomy. Bones: Sacral nerve root sheath cysts. Some hardware in right proximal femur. No compression frac tures. Soft Tissues: Within normal limits. IMPRESSION: Bilateral nonobstructing renal calculi. Large quantity of stool. No acute abnormality in the abdomen or pelvis. RADIATION DOSE DELIVERED: 791.21mGy.cm Total DLP 791.21mGy.cm Total DLP DATA REPOSITORY: All CT scans at this facility are submitted to the National Radiology Data Registry (NRDR) Dose Index Registry (DIR) with the [employer] (ACR). RADIATION OPTIMIZATION: All CT scans at this facility use at least one of these dose optimization te chniques: automated exposure control; mA and/or kV adjustment per patient size (includes targeted exa ms where dose is matched to clinical indication); or iterative reconstruction.
== END ==
PROVIDERS: PCP Family Medicine; Visit Provider Nurse Practitioner Family
DX: N20.0 Calculus of kidney (principal)
CPT/HCPCS: 74176

== ENCOUNTER 2023-10-20 16:13 | Outpatient (CLI) | payer MEDICAID, SELFPAY ==
[2023-10-20 09:57] LABS: Folate 17.3 ng/mL (8.6-20.0); Vitamin B12 1690 pg/mL (193-986)
[2023-10-22 13:58] LABS: Kappa Free Light Chain 2.34 mg/dL (0.33-1.94); Lambda Free Light Chain 1.44 mg/dL (0.57-2.63)
[2023-10-22 15:36] LABS: Albumin 62.2 % (55.8-66.1); Albumin g/dL 4.3 g/dL (3.6-5.2); Immunotyping, Serum (See Note); Total Protein 6.9 g/dL (6.3-8.2)
== END 2023-10-20 16:14 | disposition home or self-care (01) ==
LOC: LBO 16:13
PROVIDERS: PCP Family Medicine; Visit Provider Nurse Practitioner Primary Care
DX: R53.83 Other fatigue (principal); R53.1 Weakness; H02.402 Unspecified ptosis of left eyelid
CPT/HCPCS: 36415; 82607; 82746; 83519; 83883; 84155; 84165; 86320

== ENCOUNTER 2023-11-25 10:37 | Outpatient (CLI) | payer MEDICAID, SELFPAY ==
[2023-11-25] MEDS: Levalbuterol HFA 15 GM INH 4 PUFF IH (14:47)
[2023-11-25] MEDS: Inhaler, Assist Device 1 EACH MC (14:48)
--- NOTE | 2023-11-30 09:47 | W.PFT ---
Date of service: 11/25/23 Time of Service: 13:30 Pulmonary Function Test Result Indications: Emphysema Interpretation Spirometry: There is moderate airflow limitation. No bronchodilator response. Lung Volumes: There is air trapping Diffusion Capacity: Normal diffusion Airway Pressure: Increased airways resistance Impression Moderate airflow obstruction with air trapping. Clinical Correlation therefore is recommended.
== END 2023-11-25 10:38 | disposition home or self-care (01) ==
LOC: RT 10:37
PROVIDERS: PCP Family Medicine; Visit Provider Student in an Organized Health Care Education/Training Program
DX: J43.9 Emphysema, unspecified (principal)
CPT/HCPCS: 94060; 94726; 94729

== ENCOUNTER 2024-05-25 01:54 | Outpatient (CLI) | payer MEDICAID, SELFPAY ==
--- NOTE | 2024-05-25 06:45 | DI.CTLCSR_ITS ---
Exam(s) CT CHEST LUNG CANCER SCREEN EXAM: CT CHEST LUNG CANCER SCREEN CLINICAL HISTORY: Screening for lung cancer,current smoker, f17.210,pulmonary nodules TECHNIQUE: Imaging Protocol: Axial computed tomography images with coronal and sagittal reformatted images were created and reviewed. Low dose screening protocol. COMPARISON: CT CT CHEST LUNG CANCER SCREEN from 05/24/2023 FINDINGS: Tracheobronchial tree: No bronchiectasis or mucus plugging. Mediastinum and Ro: No dominant adenopathy or fluid collection. Pulmonary parenchyma: No consolidation or dominant measurable mass. Paraseptal and centrilobular emph ysematous changes, greater in the upper lobes.. No significant interstitial changes. Lung Nodules: Stable 4 millimeter nodule superior segment right lower lobe. Stable 3 millimeter nodu le inferior right lower lobe. Pleura: No effusion. No pneumothorax. Biapical scarring. Heart: The heart is not dilated. Mild coronary artery calcifications are seen. No pericardial effusio n. Aorta: Thoracic aorta non-dilated. Upper abdomen: Unremarkable. Bones: Stable mild T11 fracture. Mild degenerative changes. Soft Tissues: Unremarkable. IMPRESSION: No suspicious pulmonary nodules. Stable right lower lobe nodules. Lung RADS Cat 2 - Benign Appearance / Behavior: Nodules with a very low likelihood of becoming a clin ically active cancer due to size or lack of growth Lung-RADS 1.0 CATEGORIES: Category 0 - Prior chest CT exam(s) being located for comparison. Category 1 - Annual screening in 12 months. No nodules or definitely benign nodules. Category 2 - Annual screening in 12 months. Benign appearance. Nodules with low likelihood of becomin g active cancer. Category 3 - 6-month follow-up. Probably benign. Short-term follow-up suggested. Nodules with low lik elihood of becoming active cancer. Category 4A - 3-month follow-up and CT/PET if >8 mm in size. Suspicious finding. Findings which requi re additional testing. Category 4B - Findings which require additional testing and tissue sampling. Category 4X - Category 3 or 4 nodules with additional features or imaging findings that increases the suspicion of malignancy. Modifier S- Potentially clinically significant findings (non lung cancer) RADIATION DOSE DELIVERED: !Error Total DLP DATA REPOSITORY: All CT scans at this facility are submitted to the National Radiology Data Registry (NRDR) Dose Index Registry (DIR) with the [employer] (ACR). RADIATION OPTIMIZATION: All CT scans at this facility use at least one of these dose optimization te chniques: automated exposure control; mA and/or kV adjustment per patient size (includes targeted exa ms where dose is matched to clinical indication); or iterative reconstruction.
== END 2024-05-25 02:14 ==
LOC: DI 01:56
PROVIDERS: PCP Family Medicine; Visit Provider Physician Assistant Surgical
DX: R91.8 Other nonspecific abnormal finding of lung field (principal); F17.210 Nicotine dependence, cigarettes, uncomplicated; Z12.2 Encounter for screening for malignant neoplasm of respiratory organs
CPT/HCPCS: 71271

== ENCOUNTER 2024-06-19 15:55 | Outpatient (REF) | payer MEDICAID, SELFPAY | END 2024-06-19 15:56 | disposition home or self-care (01) | LOC: LBN 15:55 | PROVIDERS: PCP Nurse Practitioner; Visit Provider Nurse Practitioner | DX: R30.0 Dysuria (principal) | CPT/HCPCS: 87086 ==

== ENCOUNTER 2024-07-12 11:49 | Outpatient (CLI) | payer MEDICAID, SELFPAY ==
[2024-07-12 12:02] LABS: Abs Immature Grans 0.02 10^3/uL (0.0-0.06); Absolute Basophil Count 0.05 10^3/uL (0.0-0.2); Absolute Eosinophil Count 0.08 10^3/uL (0.0-0.7); Absolute Lymphocyte Count 1.73 10^3/uL (1.2-3.4); Absolute Monocyte Count 0.41 10^3/uL (0.1-0.8); Absolute Neutrophil Count 4.67 10^3/uL (1.2-6.7); Basophils % 0.7 %; Eosinophils % 1.1 %; HCT 43.4 % (36.0-46.0); HGB 14.5 g/dL (11.2-15.7); Immature Grans % 0.3 %; Lymphocytes % 24.9 %; MCH 30.5 pg (27.0-33.0); MCHC 33.4 % (32.0-36.0); MCV 91 fL (80-95); MPV 10.1 fL (8.0-11.0); Monocytes % 5.9 %; Neutrophils % 67.1 %; Platelet Count 195 10^3/uL (130-400); RBC 4.75 10^6/uL (3.93-5.22); RDW 11.9 % (11.7-14.6); RDW-SD 40.5 fL; WBC 6.96 10^3/uL (4.4-10.8)
[2024-07-12 12:21] LABS: ALT 12 U/L (14-59); AST 13 U/L (15-37); Albumin 4.2 g/dL (3.4-5.0); Alkaline Phosphatase 77 U/L (46-116); Anion Gap 8.7 mmol/L (3-11); BUN 11 mg/dL (7-18); Bilirubin, Total 0.59 mg/dL (0.2-1.0); CO2 29.3 mmol/L (21.0-32.0); CREATININE 0.9 mg/dL (0.55-1.02); Calcium 9.3 mg/dL (8.5-10.1); Chloride 104 mmol/L (98-107); Estimated GFR 71.39 (mL/min/1.73m2); Glucose 95 mg/dL (74-106); Potassium 4.1 mmol/L (3.5-5.1); Sodium 142 mmol/L (136-145); Total Protein 7.7 g/dL (6.4-8.2)
[2024-07-13 10:16] LABS: IgA 131 mg/dL (85-499); IgG 779 mg/dL (610-1616); IgM 308 mg/dL (35-242); Kappa Free Light Chain 1.76 mg/dL (0.33-1.94); Lambda Free Light Chain 1.29 mg/dL (0.57-2.63)
[2024-07-13 15:55] LABS: Albumin 63.8 % (55.8-66.1); Albumin g/dL 4.7 g/dL (3.6-5.2); Comment (See Note); Total Protein 7.4 g/dL (6.3-8.2)
[2024-07-13 17:08] LABS: Immunotyping, Serum (See Note)
== END 2024-07-12 11:50 | disposition home or self-care (01) ==
PROVIDERS: PCP Nurse Practitioner; Visit Provider Internal Medicine Hematology & Oncology
DX: D47.2 Monoclonal gammopathy (principal)
CPT/HCPCS: 36415; 80053; 82784; 83883; 84165; 85025; 86320

== ENCOUNTER 2024-07-21 00:29 | Outpatient (CLI) | payer MEDICAID, SELFPAY ==
--- NOTE | 2024-07-21 07:30 | DI.MAMMO_ITS ---
Exam(s) MAMMO SCREENING EXAM: MAMMO SCREENING CLINICAL HISTORY: screening, Z12.39 TECHNIQUE: Mammograms were interpreted according to the usual protocol including computer analysis w [employer] CAD system, tomosynthesis and C-view imaging. COMPARISON: 2016 through 2022 FINDINGS: The breasts are composed of heterogeneously dense fibroglandular densities, Breast Density category C . No suspicious masses or suspicious microcalcifications are seen. Benign calcifications again noted i n the right breast. No skin thickening or abnormal axillary lymph nodes are seen. There has been no significant change from prior exams. IMPRESSION: BI-RADS Category 2 - Benign Findings Yearly screening mammography is recommended. Breast Density Category C, heterogeneously Dense. The mammogram demonstrates the patient's breast tissue is dense. Dense breast tissue is very common a nd is not abnormal but dense breast tissue can make it harder to find cancer on a mammogram. Also, de nse breast tissue may increase breast cancer risk. This information about the result of the mammogram report was provided to the patient to raise their awareness. Use this report when you speak with the patient about their risks for breast cancer, which includes their family history. At that time, you may recommend additional screening tests (Ultrasound or MRI) as they might be useful based on their r isk. A negative radiographic report should not delay biopsy if a dominant or clinically suspicious mass is present. Up to ten percent of cancers are not identified on mammography. A negative report may reinforce clinical impression. Adenosis and dense breasts may obscure an underlying neoplasm. False positive reports average 6 to 10%.
== END 2024-07-21 00:49 ==
LOC: DI 00:29
PROVIDERS: PCP Nurse Practitioner; Visit Provider Nurse Practitioner
DX: Z12.31 Encounter for screening mammogram for malignant neoplasm of breast (principal); R92.333 Mammographic heterogeneous density, bilateral breasts; D24.1 Benign neoplasm of right breast
CPT/HCPCS: 77063; 77067

== ENCOUNTER 2024-09-25 10:28 | Outpatient (CLI) | payer MEDICAID, SELFPAY ==
--- NOTE | 2024-09-25 10:15 | RT.EKG_ITS ---
APPROVED REPORT Exam: Resting ECG Reason for Exam: GIVENS Patient Location: O HR:81 bpm ECG Measurements Heart Rate 81 AXIS OH 161 P 76 QRSd 102 QRS 84 QT 392 T 63 QTc 455 Conclusion Sinus rhythm...normal P axis, V-rate 50- 99 Normal Electrocardiogram
== END 2024-09-25 10:29 | disposition home or self-care (01) ==
LOC: DI.KIM 10:29
PROVIDERS: PCP Nurse Practitioner; Visit Provider Nurse Practitioner
DX: R06.02 Shortness of breath (principal)
CPT/HCPCS: 93010

== ENCOUNTER 2024-10-04 04:40 | Outpatient (CLI) | payer MEDICAID, SELFPAY ==
[2024-10-04 08:36] LABS: Calculated LDL 171 mg/dL (<100); Cholesterol 259 mg/dL (<200); HDL Cholesterol 76 mg/dL (>or=50); Triglyceride 64 mg/dL (<150)
== END 2024-10-04 04:41 | disposition home or self-care (01) ==
LOC: LBO 04:40
PROVIDERS: PCP Nurse Practitioner; Referring Provider Nurse Practitioner; Visit Provider Nurse Practitioner
DX: Z13.220 Encounter for screening for lipoid disorders (principal)
CPT/HCPCS: 36415; 80061

== ENCOUNTER 2024-11-06 12:55 | Outpatient (CLI) | payer MEDICARE, MEDICAID, SELFPAY ==
--- NOTE | 2024-11-06 | DI.RAD_ITS ---
Exam(s) XR ANKLE RT COMPLETE EXAM: XR ANKLE RT COMPLETE CLINICAL HISTORY: RT ANKLE PAIN, M25.571, POSSIBLE EVERSION INJURY. TECHNIQUE: 2D digital imaging was performed. COMPARISON: No exams were available for comparison FINDINGS: 3 views There is no evidence of fracture or widening the ankle mortise. Talar dome unremarkable. No obvious ankle joint effusion. No obvious degenerative changes in the ankle-tibiotalar joint. No soft tissu e swelling evident. Tiny inferior calcaneal spur. Small enthesophyte on the posterior calcaneus Ach illes insertion site. No incidental osseous lesions. However, there may be subtle evidence of osseous tarsal coalition her e IMPRESSION: No evidence of fracture. 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 If clinically indicated this can be further studied with C T or MRI. DATA REPOSITORY: RADIATION DOSE DELIVERED:
== END 2024-11-06 13:15 ==
PROVIDERS: PCP Nurse Practitioner; Visit Provider Nurse Practitioner Family
DX: M25.571 Pain in right ankle and joints of right foot (principal)
CPT/HCPCS: 73610

== ENCOUNTER → 2024-12-07 11:16 | Outpatient (BNVA) | payer MEDICARE, MEDICAID, SELFPAY | PROVIDERS: PCP Nurse Practitioner; Referring Provider Family Medicine; Visit Provider Physician Assistant Surgical | DX: R91.8 Other nonspecific abnormal finding of lung field (principal); J43.9 Emphysema, unspecified; F17.210 Nicotine dependence, cigarettes, uncomplicated; J44.9 Chronic obstructive pulmonary disease, unspecified | CPT/HCPCS: 99214; G0296 ==

== ENCOUNTER 2024-12-25 16:14 | Outpatient (CLI) | payer MEDICARE, MEDICAID, SELFPAY ==
--- NOTE | 2024-12-25 15:30 | DI.RAD_ITS ---
Exam(s) XR CERVICAL SPINE COMP 4-5V EXAM: XR CERVICAL SPINE COMP 4-5V CLINICAL HISTORY: Cervicalgia, M54.2, personal h/o healed traumatic compression fx of. TECHNIQUE: 2D digital imaging was performed. COMPARISON: CR XR CERVICAL 3 VIEW from 08/31/2023 FINDINGS: Six views No evidence of fracture, listhesis, nor offset of the spinal laminar line. All of the disc spaces exhibit normal height in the cervical spine. There are no significant cervica l ribs. On the oblique views there are no prominent Luschka joint osteophytes. There is facet arthr opathy most prominent at the C3-4 level. There is some osteopenia. No osseous lesions. IMPRESSION: No acute osseous findings. No obvious fractures. Normal disc height at each level. Facet arthropat hy noted. No significant radiographic change compared to outside images of 08/31/2023. DATA REPOSITORY: RADIATION DOSE DELIVERED:
== END 2024-12-25 16:34 ==
LOC: DI 16:15
PROVIDERS: PCP Nurse Practitioner; Visit Provider Nurse Practitioner Adult Health
DX: M54.2 Cervicalgia (principal); Z87.81 Personal history of (healed) traumatic fracture
CPT/HCPCS: 72050

== ENCOUNTER 2025-01-17 13:31 | Outpatient (CLI) | payer MEDICARE, MEDICAID, SELFPAY ==
[2025-01-17 14:00] LABS: Anion Gap 7.1 mmol/L (3-11); BUN 17 mg/dL (7-18); CO2 29.9 mmol/L (21.0-32.0); CREATININE 0.8 mg/dL (0.55-1.02); Calcium 9.3 mg/dL (8.5-10.1); Chloride 104 mmol/L (98-107); Estimated GFR 81.72 (mL/min/1.73m2); FREE T4 0.83 ng/dL (0.76-1.46); Glucose 89 mg/dL (74-106); Potassium 4.3 mmol/L (3.5-5.1); Sodium 141 mmol/L (136-145); TSH 4.78 uIU/mL (0.36-3.74)
== END 2025-01-17 13:32 | disposition home or self-care (01) ==
LOC: LBO 13:32
PROVIDERS: PCP Nurse Practitioner; Visit Provider Otolaryngology
DX: E05.00 Thyrotoxicosis with diffuse goiter without thyrotoxic crisis or storm (principal); M54.2 Cervicalgia
CPT/HCPCS: 36415; 80048; 84439; 84443

== ENCOUNTER 2025-02-02 11:55 | Outpatient (CLI) | payer MEDICARE, MEDICAID, SELFPAY ==
--- NOTE | 2025-02-02 11:30 | DI.RAD_ITS ---
Exam(s) XR KNEE RT 3V AP,LAT,FANNY EXAM: XR KNEE RT 3V AP,LAT,FANNY CLINICAL HISTORY: R52 Pain, R knee pain. TECHNIQUE: 2D digital imaging was performed. Three views. COMPARISON: No exams were available for comparison FINDINGS: BONES: No acute fracture is present. No bony destructive lesion is seen. Prominent enthesophyte at the quadriceps insertion on the patella. JOINTS: The knee is normally aligned. The joint spaces are maintained. No significant periarticular spurring. A small joint effusion is seen. SOFT TISSUE: Normal. IMPRESSION: Small joint effusion. DATA REPOSITORY: RADIATION DOSE DELIVERED:
--- NOTE | 2025-02-02 11:30 | DI.RAD_ITS ---
Exam(s) XR FOOT LT COMPLETE EXAM: XR FOOT LT COMPLETE CLINICAL HISTORY: R52 Pain, L foot/ankle/great toe pain. TECHNIQUE: 2D digital imaging was performed. Three views. COMPARISON: No exams were available for comparison FINDINGS: BONES: No acute fracture is present. No bony destructive lesion is seen. Small heel spurs. JOINTS: No dislocation present. There are mild degenerative changes tarsal region. Minimal degenerative changes of the 1st MTP joint. The plantar arch is maintained. SOFT TISSUE: Normal. IMPRESSION: Mild degenerative changes of the left foot. DATA REPOSITORY: RADIATION DOSE DELIVERED:
== END 2025-02-02 12:15 ==
LOC: DI 11:56
PROVIDERS: PCP Nurse Practitioner; Visit Provider Family Medicine
DX: M79.672 Pain in left foot (principal); M25.561 Pain in right knee
CPT/HCPCS: 73562; 73630

== ENCOUNTER 2025-02-05 10:23 | Outpatient (CLI) | payer MEDICARE, MEDICAID, SELFPAY ==
--- NOTE | 2025-02-05 09:30 | DI.MRI_ITS ---
Exam(s) MR CERVICAL SPINE WO EXAM: MR CERVICAL SPINE WO CLINICAL HISTORY: NECK UPPER BACK PAIN WORSE S/P, M54.12 M54.14 TECHNIQUE: Multiplanar multisequence MRI of the cervical spine was performed without intravenous contrast. COMPARISON: CR XR CERVICAL SPINE COMP 4-5V from 12/25/2024 FINDINGS: BONES: Vertebral body heights are maintained. Intervertebral disc spaces are normal. Alignment is normal. There is mild decreased T1 signal seen in the odontoid but no fracture is identified. CERVICAL CORD: Craniovertebral junction is unremarkable. The cervical cord is normal size and signal intensity. SOFT TISSUES: Unremarkable. C2-3: No disc herniation or bulge is identified. No significant central spinal canal or neural foraminal stenosis. C3-4: No disc herniation or bulge is identified. No significant central spinal canal or right neural foraminal stenosis is present. There are mild uncovertebral joint degenerative changes on the left resulting in mild narrowing of the left neural foramen. C4-5: No disc herniation or bulge is identified. No significant central spinal canal or neural foraminal stenosis C5-6: There is mild prominence of the disc at this level. No significant central spinal canal or neural foraminal stenosis C6-7: No disc herniation or bulge is identified. No significant central spinal canal or neural foraminal stenosis C7-T1: No disc herniation or bulge is identified. No significant central spinal canal or neural foraminal stenosis IMPRESSION: 1. Mild degenerative changes of the left uncovertebral joint at C3-4 causing mild left neural foraminal narrowing. 2. Mild prominence of the disc at the C5-6 level but no significant central spinal canal or neural foraminal stenosis results. 3. No evidence of a fracture. DATA REPOSITORY:
--- NOTE | 2025-02-05 12:55 | DI.MRI_ITS ---
Exam(s) MR THORACIC SPINE WO EXAM: MR THORACIC SPINE WO CLINICAL HISTORY: COMPRESSION FRACTURE OF BODY OF THORACIC VERTEBRA, S22.000A. TECHNIQUE: Multiplanar multisequence MRI of the Thoracic spine was performed. COMPARISON: CT CT CHEST LUNG CANCER SCREEN from 05/25/2024 FINDINGS: Bones: There is mild anterior wedging of T11. No evidence of an acute fracture of this vertebral body. No marrow edema is seen. Alignment is satisfactory. The signal characteristics are unremarkable. Small perineural cysts are seen bilaterally at T9 and on the right at T10. Cord: The thoracic cord is normal size and signal intensity. No intrinsic cord lesion is present. Discs: Mild diffuse disc bulge is seen at T12-L1. Soft tissues: There is an 8 mm nodule or infiltrate in the superior segment of the left lower lobe. This was not present on the CT scan from 05/25/2024. T1-2: No disc herniation or bulge is identified. No central spinal canal or neural foraminal stenosis. T2-3: No disc herniation or bulge is identified. No central spinal canal or neural foraminal stenosis. T4-5: No disc herniation or bulge is identified. No central spinal canal or neural foraminal stenosis. T5-6: No disc herniation or bulge is identified. No central spinal canal or neural foraminal stenosis. T6-7: No disc herniation or bulge is identified. No central spinal canal or neural foraminal stenosis. T7-8: No disc herniation or bulge is identified. No central spinal canal or neural foraminal stenosis. T8-9: No disc herniation or bulge is identified. No central spinal canal or neural foraminal stenosis. T9-10: No disc herniation or bulge is identified. No central spinal canal or neural foraminal stenosis. T10-11:No disc herniation or bulge is identified. No central spinal canal or neural foraminal stenosis. T11-12: No disc herniation or bulge is identified. No central spinal canal or neural foraminal stenosis. T12-L1: Mild diffuse disc bulge is seen at T12-L1. No central spinal canal or neural foraminal stenosis. IMPRESSION: 1. Small central disc herniation at T12-L1. No central spinal canal or neural foraminal stenosis results. 2. There is no central spinal canal or neural foraminal stenosis seen in the thoracic spine. 3. Mild anterior wedging of T11 but no evidence of an acute fracture seen at this level. 4. Question of a 8 mm nodule in the superior segment of the left lower lobe. CT scan of the chest is recommended for further evaluation. Unexpected findings DATA REPOSITORY:
== END 2025-02-05 10:43 ==
LOC: DI 10:24
PROVIDERS: PCP Nurse Practitioner; Visit Provider Family Medicine
DX: M54.12 Radiculopathy, cervical region (principal); M54.14 Radiculopathy, thoracic region; S22.000D Wedge compression fracture of unspecified thoracic vertebra, subsequent encounter for fracture with routine healing; X58.XXXD Exposure to other specified factors, subsequent encounter
CPT/HCPCS: 72141; 72146

== ENCOUNTER 2025-02-08 16:27 | Outpatient (CLI) | payer MEDICARE, MEDICAID, SELFPAY ==
[2025-02-08 16:41] LABS: Uric Acid 2.1 mg/dL (2.6-6.0)
== END 2025-02-08 16:28 | disposition home or self-care (01) ==
LOC: LBO 16:29
PROVIDERS: PCP Nurse Practitioner; Visit Provider Family Medicine
DX: M79.672 Pain in left foot (principal); M19.072 Primary osteoarthritis, left ankle and foot
CPT/HCPCS: 36415; 84550

== ENCOUNTER 2025-03-02 00:53 | Outpatient (CLI) | payer MEDICARE, MEDICAID, SELFPAY ==
--- NOTE | 2025-03-02 06:45 | DI.RAD_ITS ---
Exam(s) XR LUMBAR SPINE COMPLETE EXAM: XR LUMBAR SPINE COMPLETE CLINICAL HISTORY: low back pain,M54.50. TECHNIQUE: 2D digital imaging was performed. COMPARISON: No exams were available for comparison FINDINGS: Five views No evidence of obvious fracture, listhesis, nor pars interarticularis defects. All the disc spaces exhibit normal height. There is slight loss of height of superior endplate of L1 as seen on the lateral view. No osseous lesions. Sacroiliac joints appear unremarkable. There is no scoliosis. Right hip hardware noted. IMPRESSION: There is slight loss of height of superior endplate of L1 is seen on the lateral view. There is a possibly that this is related to the projection angle. Otherwise this implies subtle superior endplate compression. Correlation with site of tenderness recommended. There is no disc space narrowing. No listhesis. Only mild facet joint degenerative changes. Calcification is noted in the abdominal aorta and iliac arteries. DATA REPOSITORY: RADIATION DOSE DELIVERED:
== END 2025-03-02 01:13 ==
LOC: DI 00:53
PROVIDERS: Visit Provider Family Medicine
DX: M54.50 Low back pain, unspecified (principal)
CPT/HCPCS: 72110

== ENCOUNTER 2025-03-02 11:03 | Outpatient (CLI) | payer MEDICARE, MEDICAID, SELFPAY ==
--- NOTE | 2025-03-02 10:30 | DI.RAD_ITS ---
Exam(s) XR HIP RT COMPLETE AP PELVIS EXAM: XR HIP RT COMPLETE AP PELVIS CLINICAL HISTORY: right hip pain. TECHNIQUE: 2D digital imaging was performed of the right hip. Two images were obtained. AP pelvis and lateral right hip views were obtained. COMPARISON: No exams were available for comparison FINDINGS: BONES: No acute fracture is present. No bony destructive lesion is seen. There is internal fixation seen in the right femoral neck. No lucencies are seen in or about the orthopedic hardware. There is a small bony protuberance at the lateral aspect of the femoral head and neck junction on the right which can be seen with JAMIE. JOINTS: No dislocation present. Mild degenerative changes are seen in the hips bilaterally characterized by joint space narrowing and acetabular spurring. The sacroiliac joints and symphysis pubis are unremarkable. SOFT TISSUE: Atherosclerotic calcification is present. IMPRESSION: 1. Degenerative changes of the hips bilaterally. 2. Postsurgical changes in the right proximal femur. DATA REPOSITORY: RADIATION DOSE DELIVERED:
--- NOTE | 2025-03-02 10:43 | DI.RAD_ITS ---
Exam(s) XR KNEE RT 1V EXAM: XR KNEE RT 1V CLINICAL HISTORY: right knee pain. TECHNIQUE: 2D digital imaging was performed of the right knee. One views obtained. Merchant, views were obtained. COMPARISON: CR XR KNEE RT 3V AP,LAT,FANNY from 02/02/2025 FINDINGS: A single sunrise view is obtained. There is normal alignment of the patella relative to the femur. The joint space is well maintained on the single view. The bones are normally mineralized and appear intact on this single view. The soft tissues are unremarkable. IMPRESSION: DATA REPOSITORY: RADIATION DOSE DELIVERED:
== END 2025-03-02 11:04 | disposition home or self-care (01) ==
LOC: DIORS 11:03
PROVIDERS: Visit Provider Physician Assistant
DX: M25.551 Pain in right hip (principal); M25.561 Pain in right knee; M16.11 Unilateral primary osteoarthritis, right hip; G89.29 Other chronic pain
CPT/HCPCS: 99214; 73502; 73560

== ENCOUNTER 2025-03-16 18:26 | Outpatient (REF) | payer MEDICARE, MEDICAID, SELFPAY ==
[2025-03-16 15:52] LABS: ESR 27 mm/hr (0-30)
[2025-03-19 11:32] LABS: Lyme Ab w Rflx to Lyme Confirm Negative (Negative)
== END 2025-03-16 18:27 | disposition home or self-care (01) ==
LOC: LBN 18:26
PROVIDERS: Visit Provider Nurse Practitioner Family
DX: M25.59 Pain in other specified joint (principal)
CPT/HCPCS: 85652; 86618

== ENCOUNTER 2025-04-12 15:24 | Outpatient (REF) | payer MEDICARE, MEDICAID, SELFPAY ==
[2025-04-12 16:00] LABS: ESR 37 mm/hr (0-30)
[2025-04-12 16:10] LABS: C-Reactive Protein 1.43 mg/dL (<or=0.5)
[2025-04-13 11:13] LABS: Lyme Ab w Rflx to Lyme Confirm Negative (Negative)
== END 2025-04-12 15:25 | disposition home or self-care (01) ==
LOC: LBN 15:24
PROVIDERS: Visit Provider Physician Assistant Medical
DX: M79.672 Pain in left foot (principal)
CPT/HCPCS: 85652; 86038; 86140; 86431; 86618

== ENCOUNTER → 2025-05-28 02:11 | Outpatient (CLI) | payer MEDICARE, MEDICAID, SELFPAY ==
--- NOTE | 2025-05-28 11:24 | DI.CT_ITS ---
Exam(s) CT CHEST WO EXAM: CT CHEST WO CLINICAL HISTORY: f/u lung nodule. TECHNIQUE: Imaging protocol: Axial computed tomography images were obtained and coronal and sagittal reformatted images were created and reviewed. Lung Computer Aided Detection (CAD) was utilized. COMPARISON: CT CT CHEST LUNG CANCER SCREEN from 05/24/[address] CHEST LUNG CANCER SCREEN from 05/25/2024 FINDINGS: Tracheobronchial tree: Patent where visualized. No bronchiectasis is present. Pulmonary parenchyma: There is a new 7 mm nodule associated with the superior aspect of the left major fissure. There is a stable 4 mm nodule in the superior segment of the right lower lobe (series 2, image 54). There is a stable 3 mm nodule in the right lower lobe (series 2, image 118). Emphysematous changes are present in the lungs. Mediastinum and Ro: No dominant adenopathy or fluid collection. The esophagus is unremarkable.There is a small hiatal hernia. Thyroid gland: Unremarkable. Pleura: No effusion or pneumothorax. Heart: The heart is not dilated. Coronary artery calcification is present. No pericardial effusion. Aorta: Thoracic aorta non-dilated. Atherosclerotic calcification is present. Upper abdomen: There is bilateral nephrolithiasis. Lymph nodes: Within normal limits. Soft tissues: Unremarkable. Bones:Within normal limits for the patient's age. IMPRESSION: 1. New 7 mm nodule associated with the left major fissure. Three month follow- up CT scan is recommended for re-evaluation. 2. Stable right pulmonary nodules. 3. There is no acute pulmonary process. RADIATION DOSE DELIVERED: 124.98mGy.cm Total DLP 124.98mGy.cm Total DLP DATA REPOSITORY: All CT scans at this facility are submitted to the National Radiology Data Registry (NRDR) Dose Index Registry (DIR) with the [employer] ([employer]). RADIATION OPTIMIZATION: All CT scans at this facility use at least one of these dose optimization techniques: automated exposure control; mA and/or kV adjustment per patient size (includes targeted exams where dose is matched to clinical indication); or iterative reconstruction.
== END ==
LOC: DI 02:12
PROVIDERS: Visit Provider Physician Assistant Surgical
DX: R91.1 Solitary pulmonary nodule (principal)
CPT/HCPCS: 71250

== ENCOUNTER 2025-06-14 01:50 | Outpatient (CLI) | payer MEDICARE, MEDICAID, SELFPAY ==
[2025-06-14 07:24] LABS: HCT 39.4 % (36.0-46.0); HGB 13.0 g/dL (11.2-15.7); MCH 29.4 pg (27.0-33.0); MCHC 33.0 % (32.0-36.0); MCV 89 fL (80-95); MPV 10.1 fL (8.0-11.0); Platelet Count 235 10^3/uL (130-400); RBC 4.42 10^6/uL (3.93-5.22); RDW 12.7 % (11.7-14.6); RDW-SD 41.6 fL; WBC 7.71 10^3/uL (4.4-10.8)
[2025-06-14 08:53] LABS: Vitamin D 25 Total 37 ng/mL (30-100)
[2025-06-14 10:31] LABS: ALT 8 U/L (10-49); AST 14 U/L (<34); Albumin 4.4 g/dL (3.4-5.0); Alkaline Phosphatase 66 U/L (46-116); Anion Gap 3.3 mmol/L (3-11); BUN 10 mg/dL (9-23); Bilirubin, Total 0.50 mg/dL (0.2-1.2); CO2 28.7 mmol/L (20.0-31.0); Calcium 9.0 mg/dL (8.3-10.6); Chloride 110 mmol/L (98-107); Cholesterol 233 mg/dL (<200); Glucose 90 mg/dL (74-106); HDL Cholesterol 64 mg/dL (>40); Potassium 3.9 mmol/L (3.5-5.1); Sodium 142 mmol/L (136-145); TSH (W/Ref FT4) 4.30 uIU/mL (0.55-4.78); Total Protein 7.3 g/dL (5.7-8.2)
== END 2025-06-14 01:51 | disposition home or self-care (01) ==
LOC: LBO 01:50
PROVIDERS: PCP Internal Medicine; Visit Provider Internal Medicine
DX: E78.5 Hyperlipidemia, unspecified (principal); M81.0 Age-related osteoporosis without current pathological fracture
CPT/HCPCS: 36415; 80053; 80061; 82306; 85027; 84443

== ENCOUNTER 2025-07-03 10:59 | Outpatient (CLI) | payer MEDICARE, MEDICAID, SELFPAY ==
[2025-07-03 10:39] LABS: Abs Immature Grans 0.03 10^3/uL (0.0-0.06); HCT 39.1 % (36.0-46.0); HGB 12.9 g/dL (11.2-15.7); Immature Grans % 0.4 %; MCH 29.3 pg (27.0-33.0); MCHC 33.0 % (32.0-36.0); MCV 89 fL (80-95); MPV 10.4 fL (8.0-11.0); Platelet Count 227 10^3/uL (130-400); RBC 4.41 10^6/uL (3.93-5.22); RDW 12.1 % (11.7-14.6); RDW-SD 39.2 fL; WBC 7.32 10^3/uL (4.4-10.8)
[2025-07-03 11:21] LABS: ALT 8 U/L (10-49); AST 16 U/L (<34); Albumin 4.5 g/dL (3.2-5.0); Alkaline Phosphatase 78 U/L (46-116); Anion Gap 8.2 mmol/L (3-11); BUN 10 mg/dL (9-23); Bilirubin, Total 0.3 mg/dL (0.2-1.2); CO2 27.8 mmol/L (20.0-31.0); Calcium 9.6 mg/dL (8.3-10.6); Chloride 107 mmol/L (98-107); Glucose 87 mg/dL (74-106); Potassium 4.0 mmol/L (3.5-5.1); Sodium 143 mmol/L (136-145); Total Protein 7.5 g/dL (5.7-8.2)
[2025-07-04 11:53] LABS: Kappa Free Light Chain 2.02 mg/dL (0.33-1.94); Lambda Free Light Chain 1.75 mg/dL (0.57-2.63)
[2025-07-04 15:50] LABS: Albumin 59.8 % (55.8-66.1); Albumin g/dL 4.3 g/dL (3.6-5.2); Alpha 1 g/dL 0.40 g/dL (0.15-0.40); Alpha 2 g/dL 0.80 g/dL (0.50-1.00); Beta g/dL 0.90 g/dL (0.60-1.20); Gamma g/dL 0.80 g/dL (0.60-1.60); Total Protein 7.2 g/dL (6.3-8.2)
== END 2025-07-03 11:00 | disposition home or self-care (01) ==
LOC: LBO 10:59
PROVIDERS: PCP Internal Medicine; Visit Provider Internal Medicine Hematology & Oncology
DX: D47.2 Monoclonal gammopathy (principal)
CPT/HCPCS: 36415; 80053; 82784; 83883; 84165; 85025; 86320